=== PATIENT | male | born 1945 | race Caucasian/White ===

== ENCOUNTER 2018-01-03 13:46 | Inpatient (IN) ==
[2018-01-03] MEDS ORDERED: Pantoprazole Inj 40 MG Vial IV.PUSH ONE (14:07)
[2018-01-03] MEDS ORDERED: Sod Chloride 0.9% Inj 1,000 ML IV.CONT SCH (14:15)
--- NOTE | 2018-01-03 14:15 | ED ---
HPI General Chief Complaint: Dizziness Stated Complaint: medical Time Seen by Provider: 01/03/18 13:49 Source: patient Mode of arrival: ambulatory Limitations: no limitations History of Present Illness HPI Narrative: The patient is a 72-year-old male who presents to the emergency department for lightheadedness and dizziness. Patient states he has been having progressive symptoms for the last several months of lightheadedness , shortness of breath with exertion, and occasional chest discomfort. However, the patient states her last several days he has been having orthostatic hypotension with syncopal episodes upon standing upright. The patient states every time he stands up he became lightheaded and dizzy. The patient was scheduled for an outpatient stress test today with his education department chair, Dr. Callejas. The patient denies any history of symptomatic anemia or current GI bleed, notes he has had a colonoscopy in the past which is significant for polyps and internal hemorrhoids. Symptoms are moderate and progressive. The patient does note his symptoms are exertional. MD complaint: Reports dizziness Onset (ago): day(s) Timing: gradual onset Description: Reports lightheadedness and near-syncope History of similar episodes: Yes History of trauma: No Severity: moderate Relieving factors: rest Exacerbating factors: position and exertion Associated symptoms: Reports chest pain, syncope and weakness Related Data Home Medications Medication Instructions Recorded Confirmed atorvastatin 40 mg PO HS 01/03/18 01/03/18 carvedilol 12.5 mg PO BID 01/03/18 01/03/18 furosemide [Lasix] 40 mg PO DAILY 01/03/18 01/03/18 hydrocodone-acetaminophen [[place]] 1 tab PO BID PRN 01/03/18 01/03/18 potassium chloride 20 meq PO DAILY 01/03/18 01/03/18 warfarin [Jantoven] 1.5 mg PO 01/03/18 warfarin [Jantoven] 3 mg PO DAILY 01/03/18 01/03/18 Allergies Allergy/AdvReac Type Severity Reaction Status Date / Time No Known Allergies Allergy Verified 01/03/18 14:07 Review of Systems ROS: all other systems reviewed are negative PENDING SALE TO [facility] Social History Social History Substance History: No History of Abuse Second Hand Smoke Exposure: Yes Smoking Status: Current some day smoker Tobacco Type: Cigars How Often Do You Have a Drink Containing Alcohol: 4 or more times a week Recent Out of Country Travel within the Last 8 Weeks: No Exam Narrative Exam Narrative: GENERAL: Awake, alert, pleasant 72-year-old male who appears his stated age and is in no acute respiratory distress. SKIN: Focused skin assessment warm/dry. Pallor to the skin noted. HEAD: Atraumatic. Normocephalic. EYES: Pupils equal and round. Pale lower junk of blood. ENT: No nasal bleeding or discharge. Mucous membranes pink and moist. NECK: Trachea midline. No JVD. CARDIOVASCULAR: Regular rate and rhythm. No murmur appreciated. RESPIRATORY: No accessory muscle use. Clear to auscultation. Breath sounds equal bilaterally. GASTROINTESTINAL: Abdomen soft, non-tender, nondistended. Rectal: No gross blood. Guaiac positive. MUSCULOSKELETAL: No obvious deformities. No clubbing. No cyanosis. Bilateral lower extremity pitting edema to the knees. Pallor noted to the palms. NEUROLOGICAL: Awake and alert. No obvious cranial nerve deficits. Motor grossly within normal limits. Normal speech. PSYCHIATRIC: Appropriate mood and affect; insight and judgment normal. Procedures Hemaprompt Stool Procedural Steps Taken: specimen placed in appropriate test area, developer placed on specimen and control areas and controls appropriately positive and negative Hemaprompt Stool Result: positive Course Initial Documented Vital Signs Temperature 97.7 F 01/03/18 13:50 Pulse Rate 61 01/03/18 13:50 Respiratory Rate 21 01/03/18 13:50 Blood Pressure 106/49 L 01/03/18 13:50 Pulse Oximetry 100 01/03/18 13:50 Last Documented Vital Signs Temperature 97.7 F 01/03/18 13:50 Pulse Rate 61 01/03/18 13:50 Respiratory Rate 21 01/03/18 13:50 Blood Pressure 106/49 L 01/03/18 13:50 Pulse Oximetry 100 01/03/18 14:07 Critical Care Time Critical Care Time: Yes Total Critical Care Time: 35 Attestation: Aggregate critical care time was 35 minutes. Time to perform other separately billable procedures was not included in the critical care time. My time did not include minutes spent treating any other patients simultaneously or on activities that did not directly contribute to the patient's treatment. The services I provided to this patient were to treat and/or prevent clinically significant deterioration that could result in: Hemorrhagic shock, acute kidney insufficiency, acute renal failure, arrhythmia, ischemic heart disease, . I provided critical care services requiring my management, as noted below: Chart data review, documentation time, medication orders and management, vital sign assessments/reviewing monitor data, ordering and reviewing lab tests, ordering and interpreting/reviewing x-rays and diagnostic studies, care of the patient and discussion of the patient with the admitting physicians. Medical Decision Making MDM Narrative Medical decision making narrative: IV was established, labs were drawn and sent , and the patient was placed on cardiac telemetry monitoring and continuous pulse oximetry monitoring. EKG was ordered and entered. Orthostatic vital signs were obtained. CBC and type and screen were sent to lab. The patient's hemoglobin is 4.4, INR is 6.2, the patient is on Coumadin with a history of atrial fibrillation. The patient's rectal exam was guaiac positive, he does have orthostatic changes and presyncopal symptoms. The patient was administered vitamin K 5 mg orally for elevated INR and 2 units of PRBCs were ordered with 2 units to be held for transfusion for symptomatic anemia. The patient does have severe symptomatic anemia with coagulopathy, therefore, call was placed to the on-call inspector missile at 3:17 PM to discuss whether the patient could go to a medical floor with cardiac telemetry monitoring or the intensive care unit. I discussed the patient with Dr. Hurt who agrees with admission. Medical Screen Exam Complete: Yes Emergency Medical Condition: Yes Differential Diagnosis Differential Diagnosis: Differential diagnosis includes symptomatic anemia, GI bleed, hemolytic anemia, leukemia, ACS, cardiomyopathy, deconditioning, acute renal failure, orthostatic hypotension, dysregulation syndrome. Lab Data Lab results reviewed: Yes I reviewed the patient's lab results. Result diagrams: 01/03/18 13:50 01/03/18 13:50 Lab Results 01/03/18 01/03/18 01/03/18 Range/Units 13:50 13:50 13:50 WBC 3.2 L (4.0-11.0) th/mm3 RBC 1.74 L (4.50-5.90) mil/mm3 Hgb 4.4 L* (13.0-17.0) gm/dL Hct 14.1 L* (39.0-51.0) % MCV 80.9 (80.0-100.0) fL MCH 25.1 L (27.0-34.0) pg MCHC 31.0 L (32.0-36.0) % RDW 16.8 (11.6-17.2) % Plt Count 121 L (150-450) th/mm3 MPV 8.3 (7.0-11.0) fL Prelim Diff (Auto) Manual diff required Differential Comment . PT 65.1 H (9.8-11.6) sec INR 6.5 H* Ratio APTT 47.7 H (23.4-31.7) sec Sodium 137 (136-145) meq/L Potassium 4.4 (3.5-5.1) meq/L Chloride 107 (98-107) meq/L Carbon Dioxide 23.3 (21.0-32.0) meq/L Anion Gap 7 (5-15) meq/L BUN 16 (7-18) mg/dL Creatinine 1.34 H (0.60-1.30) mg/dL Estimated GFR 53 L (>89) mL/min Random Glucose 126 H (74-106) mg/dL Calcium 6.9 L* (8.5-10.1) mg/dL Calcium Adj for Albumin 7.8 L (8.5-10.1) mg/dL Magnesium 1.8 (1.5-2.5) mg/dL Total Bilirubin 1.9 H (0.2-1.0) mg/dL AST 52 H (15-37) U/L ALT 37 (12-78) U/L Alkaline Phosphatase 67 (45-117) U/L Troponin I 0.02 (0.02-0.05) ng/mL Total Protein 5.4 L (6.4-8.2) g/dL Albumin 2.3 L (3.4-5.0) g/dL ECG Data EKG Prior to Arrival: No Attestation: I personally reviewed and interpreted this ECG as follows: Interpretation: EKG reveals normal sinus rhythm with a rate of 62. RSR prime with a QRS of 140 ms consistent with right bundle branch block. Discharge Plan Discharge Disposition Patient Disposition: 30 Still Patient Discharge Condition Condition: Serious Discharge Details Diagnosis: Symptomatic anemia, Orthostatic hypotension, Coumadin toxicity, Pancytopenia Physicians Team ED Provider: Jorge Lowe Primary Care Provider: Jose Manuel Bailey Rxs /Orders / Referrals /Forms Prescriptions: No Action furosemide [Lasix] 40 mg Tablet 40 mg PO DAILY RF: 0 atorvastatin 40 mg Tablet 40 mg PO HS RF: 0 potassium chloride 10 mEq Capsule, Extended Release 20 meq PO DAILY RF: 0 carvedilol 12.5 mg Tablet 12.5 mg PO BID RF: 0 hydrocodone-acetaminophen [[place]] 10-325 mg Tablet 1 tab PO BID PRN (Reason: Pain) RF: 0 warfarin [Jantoven] 3 mg Tablet 3 mg PO DAILY RF: 0 warfarin [Jantoven] 3 mg Tablet 1.5 mg PO RF: 0 Status ED Status: Admitted Patient
[2018-01-03 14:41] LABS: Mean Corpuscular Hemoglobin 25.1 pg (27.0-34.0); Mean Corpuscular Volume 80.9 fL (80.0-100.0); Mean Platelet Volume 8.3 fL (7.0-11.0); Platelet Count 121 th/mm3 (150-450); Red Blood Count 1.74 mil/mm3 (4.50-5.90); Red Cell Distribution Width 16.8 % (11.6-17.2); White Blood Count 3.2 th/mm3 (4.0-11.0)
[2018-01-03 14:46] LABS: Activated Partial Thrombo Time 47.7 sec (23.4-31.7); Prothrombin Time 65.1 sec (9.8-11.6)
[2018-01-03 14:51] LABS: Hematocrit 14.1 % (39.0-51.0); Hemoglobin 4.4 gm/dL (13.0-17.0)
[2018-01-03 14:54] LABS: INR 6.5 Ratio
[2018-01-03] MEDS ORDERED: Acetaminophen 325 MG Tablet PO PRN ×2 (14:55→15:27)
[2018-01-03] MEDS ORDERED: Phytonadione 5 MG/SWFI 5 ML Oral Syringe PO ONE (14:58)
[2018-01-03 14:59] LABS: Albumin 2.3 g/dL (3.4-5.0); Calcium 6.9 mg/dL (8.5-10.1); Carbon Dioxide 23.3 meq/L (21.0-32.0); Magnesium 1.8 mg/dL (1.5-2.5); Potassium 4.4 meq/L (3.5-5.1)
[2018-01-03] MEDS ORDERED: Sodium Chlor 0.9% Inj 250 ML IV.SIG SCH (15:00)
[2018-01-03 15:03] LABS: Total Protein 5.4 g/dL (6.4-8.2); Troponin I 0.02 ng/mL (0.02-0.05)
[2018-01-03] MEDS ORDERED: Bisacodyl 10 MG Supp RECTAL PRN (15:27)
[2018-01-03 15:28] LABS: Lymphocytes 17 % (9-44); Monocytes 10 % (0-8)
[2018-01-03 15:29] LABS: Ovalocytes 2+; Platelet Morphology Normal (Normal)
[2018-01-03] MEDS ORDERED: Potassium Phosphate 500 MG Soluble Tablet PO PRN ×2 (15:29)
[2018-01-03] MEDS ORDERED: Magnesium Oxide 400 MG Tablet PO PRN (15:29)
[2018-01-03] MEDS ORDERED: Sodium Phosphate Inj 30 MMOL in Sodium Chlor 0.9% Inj 250 ML IV.SIG PRN (15:29)
[2018-01-03] MEDS ORDERED: Potassium Chlor 40 mEq Premix 40 MEQ/100 ML PIGGYBACK IV.SIG PRN ×2 (15:29)
[2018-01-03] MEDS ORDERED: Magnesium Sulfate Inj 4 GM in Sodium Chlor 0.9% Inj 92 ML IV.SIG PRN (15:29)
[2018-01-03] MEDS ORDERED: Potassium Phosphate Inj 30 MMOL in Sodium Chlor 0.9% Inj 250 ML IV.SIG PRN (15:29)
[2018-01-03] MEDS ORDERED: Magnesium Sulfate Inj 2 GM in Sodium Chlor 0.9% Inj 96 ML IV.SIG PRN (15:29)
[2018-01-03] MEDS ORDERED: Potassium Chloride 25 MEQ Effervescent Tablet PO PRN (15:29)
[2018-01-03] MEDS ORDERED: Potassium Chlor 20 mEq Premix 20 MEQ/100 ML PIGGYBACK IV.SIG PRN ×2 (15:29)
[2018-01-03] MEDS ORDERED: Dextrose 50% in Water 50 ML Vial IV.PUSH PRN (15:30)
[2018-01-03 16:15] LABS: % Iron Saturation 4.3 % (20-50)
[2018-01-03 16:31] LABS: Reticulocyte Percent 2.9 % (0.4-3.0)
--- NOTE | 2018-01-03 17:07 | P.HPCC ---
History of Present Illness Service: Critical care medicine Primary Care Physician: Jose Manuel Bailey Chief Complaint: Shortness of breath History of Present Illness: This is a 72-year-old male. Date of admission 01/03/2018. Past medical history includes atrial fibrillation on chronic warfarin, hypertension, hyperlipidemia, prostate cancer. Patient also has significant bilateral lower extremity edema on furosemide. Patient presented to [facility] with progressive weakness. Patient has had dark stools. Denies any aspirin, NSAID or steroid use. Denies abdominal pain. Patient a colonoscopy 2 years ago which revealed only polyps. Internal hemorrhoids. At this facility, patient was noted have a hemoglobin of 4.4. INR of 6.5. Patient received phytonadione and 2 units PRBCs. Recheck later this evening after receiving furosemide and readdress. Denies chest pain. Positive shortness of breath. Positive orthostatics. Inpatient Certification: I certify that the inpatient services were ordered in accordance with Medicare regulations governing the order. This includes certification that hospital inpatient services are reasonable and necessary and in the case of services not specified as inpatient-only under 42 CFR 419.22(n), that they are appropriately provided as inpatient services in accordance to with the 2-midnight benchmark under 43 CFR 412.3(e) Estimated Total Length of Stay (Days): 5 Plans for Post Hospital Care: Not yet determined Review of Systems Constitutional: Reports daytime sleepiness, Denies anorexia, Denies body ache(s) , Denies chills Eyes: Denies blind spots, Denies blurry vision Ears, Nose, Mouth, and Throat: Reports bad breath, Reports poor balance, Denies abnormal hearing, Denies bleeding gums Cardiovascular: Reports shortness of breath, Reports shortness of breath with activity, Denies chest pain, Denies chest pain at rest, Denies shortness of breath when lying down Respiratory: Denies chest congestion, Denies cough Gastrointestinal: Reports black, tarry stools, Denies abdominal pain, Denies bright, red blood in stools, Denies change in bowel habits Genitourinary: Denies blood in semen, Denies blood in urine Musculoskeletal: Reports abnormal walking, Denies back pain Skin/Breast: Reports change in skin color, Denies acne, Denies change in hair Neurologic: Denies abnormal hearing, Denies abnormal walking Psychiatric: Reports confusion, Denies abnormal sleep pattern, Denies anxiety Endocrine: Denies cold intolerance, Denies excessive sweating Hematologic/Lymphatic: Denies easy bleeding, Denies easy bruising Allergic/Immunologic: Denies GI upset with certain foods PMFSH - History History Provided By: Patient, Family Member, [employer] Consultant / EMT - Medical History Medical History: Medical History (Last Reviewed 01/03/18 @ 15:09 by Rachel Yang) Atrial fibrillation Cataract HTN (hypertension) Hemorrhoid High cholesterol Hx of radiation therapy Prostate CA - Surgical History Surgical History: Surgical History (Last Reviewed 01/03/18 @ 15:09 by Rachel Yang) H/O cardiac radiofrequency ablation H/O knee surgery Hx of tonsillectomy - Family History Family History: Family History (Last Updated 01/03/18 @ 17:07 by Anam Hurt MD) Mother Family history of CVA Father Family history of atrial fibrillation Grandparent No problems noted. - Social History I have reviewed the patient's Social History: Yes - Tobacco History Second Hand Smoke Exposure: Yes Tobacco Use In Past 30 Days: Yes Smoking Status: Current some day smoker Tobacco Type: Cigars - Alcohol History How Often Do You Have a Drink Containing Alcohol: 4 or more times a week - Substance Use History Substance History: No History of Abuse - Travel History Recent Travel Out of the Country Within the Last 8 Weeks: No - Immunization History Tetanus Immunization: <5 Years Medications and Allergies Active Medications: Active Medications Acetaminophen (Tylenol) 650 mg PO Q4H PRN PRN Reason: SEE LABEL COMMENTS Acetaminophen (Tylenol) 650 mg PO Q6H PRN PRN Reason: PAIN 1-10 AND/OR FEVER >101F Al Hydroxide/Mg Hydroxide (Milk Of Magnzach Liq) 30 ml PO Q12H PRN PRN Reason: Mild Constipation Albuterol (Albuterol Neb (Prn)) 2.5 mg NEB Q2HR NEB PRN PRN Reason: SHORTNESS OF BREATH/WHEEZING Albuterol (Duoneb Neb (Anai)) 1 ampul NEB Q4HR NEB ANAI Last Admin: 01/03/18 16:17 Dose: 1 ampul Bisacodyl (Dulcolax Supp) 10 mg RECTAL DAILY PRN PRN Reason: SEVERE CONSITIPATION Chlorhexidine Gluconate (Chlorhexidine 2% Cloth) 3 pack TOPICAL DAILY@0400 [facility] Stop: 01/09/18 03:59 Chlorhexidine Gluconate (Chlorhexidine 2% Cloth) 3 pack TOPICAL DAILY@0400 PRN PRN Reason: Extra cloth needed Stop: 01/09/18 03:59 Dextrose (D50w Vial) 50 ml IV.PUSH UNSCH PRN PRN Reason: PER HYPOGLYCEMIA PROTOCOL Diphenhydramine HCl (Benadryl) 25 mg PO Q4H PRN PRN Reason: SEE LABEL COMMENTS Furosemide (Lasix) 40 mg PO DAILY ANAI Glucagon (Glucagon Inj) 1 mg OTHER UNSCH PRN PRN Reason: for Hypoglycemia Protocol Sodium Chloride (Ns Inj) 250 mls @ 15 mls/hr IV.SIG ONCE ANAI Stop: 01/04/18 07:39 Sodium Chloride (Ns Inj) 1,000 mls @ 84 mls/hr IV.CONT .[id number] ANAI Magnesium Sulfate 4 gm/ Sodium (Chloride) 100 mls @ 50 mls/hr IV.SIG UNSCH PRN PRN Reason: For Magnesium 0.9 - 1.1 mg/dL Magnesium Sulfate 2 gm/ Sodium (Chloride) 100 mls @ 50 mls/hr IV.SIG UNSCH PRN PRN Reason: For Magnesium 1.2 - 1.6 mg/dL Potassium Chloride (Kcl 40 Meq Premix Inj) 40 meq in 100 mls @ 50 mls/hr IV.SIG Q2H PRN PRN Reason: For Potassium 2.8 - 3.2 mEq/L Potassium Chloride (Kcl 40 Meq Premix Inj) 40 meq in 100 mls @ 25 mls/hr IV.SIG UNSCH PRN PRN Reason: For Potassium 3.3 - 3.5 mEq/L Potassium Chloride (Kcl 20 Meq Premix Inj) 20 meq in 100 mls @ 50 mls/hr IV.SIG Q2H PRN PRN Reason: For Potassium 2.8 - 3.2 mEq/L Potassium Phosphate 30 mmol/ (Sodium Chloride) 260 mls @ 42 mls/hr IV.SIG UNSCH PRN PRN Reason: SEE LABEL COMMENTS Sodium Phosphate 30 mmol/ (Sodium Chloride) 260 mls @ 42 mls/hr IV.SIG UNSCH PRN PRN Reason: For Phosphorus < 2.5 mg/dL Potassium Chloride (Kcl 20 Meq Premix Inj) 20 meq in 100 mls @ 50 mls/hr IV.SIG Q2H PRN PRN Reason: For Potassium 3.3 - 3.5 mEq/L Insulin Aspart (Novolog Insulin Correctional Sugar Inj) 0 unit SQ Q6HR ANAI; Protocol Lactulose (Lactulose Liq) 30 ml PO DAILY PRN PRN Reason: SEVERE CONSITIPATION Magnesium Oxide (Mag-Ox) 800 mg PO UNSCH PRN PRN Reason: For Magnesium 1.2 - 1.6 mg/dL Pantoprazole Sodium (Protonix Inj) 40 mg IV.PUSH Q12H ANAI Potassium Bicarb/Potassium Chloride (K-Lyte Cl Eff) 50 meq PO UNSCH PRN PRN Reason: For Potassium 3.3 - 3.5 mEq/L Potassium Phosphate (K-Phos Original) 2,000 mg PO Q4H PRN PRN Reason: Phosphorus Less Than 2.5 mg/dL Potassium Phosphate (K-Phos Original) 2,000 mg PO UNSCH PRN PRN Reason: SEE LABEL COMMENTS Senna/Docusate Sodium (Lizette-Colace) 1 tab PO BID [facility] Sennosides (Senokot) 17.2 mg PO Q12H PRN PRN Reason: Moderate Constipation Sodium Chloride (Ns Flush) 2 ml IV.FLUSH BID ANAI Sodium Chloride (Ns Flush) 2 ml IV.FLUSH UNSCH PRN PRN Reason: FLUSH AFTER USING IV ACCESS Allergies Allergy/AdvReac Type Severity Reaction Status Date / Time No Known Allergies Allergy Verified 01/03/18 14:07 Home Medications Medication Instructions Recorded Confirmed Type atorvastatin 40 mg PO HS 01/03/18 01/03/18 History carvedilol 12.5 mg PO BID 01/03/18 01/03/18 History furosemide [Lasix] 40 mg PO DAILY 01/03/18 01/03/18 History hydrocodone-acetaminophen [[place]] 1 tab PO BID PRN 01/03/18 01/03/18 History potassium chloride 20 meq PO DAILY 01/03/18 01/03/18 History warfarin [Jantoven] 1.5 mg PO 01/03/18 History warfarin [Jantoven] 3 mg PO DAILY 01/03/18 01/03/18 History Results - Labs CBC & Chem 7: 01/03/18 13:50 01/03/18 13:50 Labs: Short CBC 01/03/18 Range/Units 13:50 WBC 3.2 L (4.0-11.0) th/mm3 Hgb 4.4 L* (13.0-17.0) gm/dL Hct 14.1 L* (39.0-51.0) % Plt Count 121 L (150-450) th/mm3 BMP 01/03/18 13:50 Sodium 137 Potassium 4.4 Chloride 107 Carbon Dioxide 23.3 BUN 16 Creatinine 1.34 H Calcium 6.9 L* Cardiac Enzymes 01/03/18 01/03/18 Range/Units 13:50 13:50 Total Creatine Kinase 83 (39-308) U/L Troponin I 0.02 (0.02-0.05) ng/mL Liver Function 01/03/18 Range/Units 13:50 Total Bilirubin 1.9 H (0.2-1.0) mg/dL AST 52 H (15-37) U/L ALT 37 (12-78) U/L Alkaline Phosphatase 67 (45-117) U/L Albumin 2.3 L (3.4-5.0) g/dL Exam Vital signs: Vital Signs 01/03/18 13:50 01/03/18 14:07 01/03/18 14:15 Temperature 97.7 F Pulse Rate 61 59 L Respiratory Rate 21 16 Blood Pressure 106/49 L 111/53 L Pulse Oximetry 100 100 100 01/03/18 15:00 01/03/18 15:27 01/03/18 16:00 Temperature Pulse Rate 59 L 58 L Respiratory Rate 18 18 Blood Pressure 103/48 L 102/51 L Pulse Oximetry 100 100 100 01/03/18 16:17 Temperature Pulse Rate 58 L Respiratory Rate 18 Blood Pressure Pulse Oximetry Intake & Output 01/02/18 01/03/18 01/03/18 18:59 06:59 18:59 Weight 124.284 kg - Constitutional no acute distress - Routine HEENT Exam Head: Present: normocephalic, atraumatic Eye: Present: EOMI, PERRL ENT: Present: mucous membranes moist - Routine Neck Exam Present: supple, full ROM. Absent: JVD - Routine Chest/Breast/Axilla Exam Chest wall: Absent: tenderness Breast: Absent: tenderness Axillae: Absent: lymphadenopathy - Routine Respiratory Exam Present: CTA bilaterally. Absent: accessory muscle use - Routine Cardiovascular Exam Present: S1, S2, murmur, irregularly irregular - Routine Abdominal Exam Present: soft, normoactive bowel sounds - Routine Extremities Exam Present: edema. Absent: cyanosis, clubbing - Routine Skin Exam Present: wounds, cracked, ecchymosis - Routine Neurological Exam Present: alert, oriented X3, CN II-XII intact. Absent: sensory deficit, motor deficit Septic Shock Reassessment Septic shock perfusion: reassessment completed Ashvinrini VTE Risk Assessment Caprini VTE Risk Assessment: Moderate/High Risk (score >= 2) VTE Pharmacological Exception Reason: Hemorrhage Caprini Risk Assessment Model: Point Value = 1 Point Value = 2 Point Value = 3 Point Value = 5 Age 41-60 Minor surgery BMI > 25 kg/m2 Swollen legs Varicose veins or History of unexplained or recurrent spontaneous Oral contraceptives or hormone replacement Sepsis (< 1 month) Serious lung disease, including pneumonia (< 1 month) Abnormal pulmonary function Acute myocardial infarction Congestive heart failure (< 1 month) History of inflammatory bowel disease Medical patient at bed rest Age 61-74 Arthroscopic surgery Major open surgery (> 45 min) Laparoscopic surgery (> 45 min) Malignancy Confined to bed (> 72 hours) Immobilizing plaster cast Central venous access Age >= 75 History of VTE Family history of VTE Factor V Leiden Prothrombin [id number] Lupus anticoagulant Anticardiolipin antibodies Elevated serum homocysteine Heparin-induced thrombocytopenia Other congenital or acquired thrombophilia Stroke (< 1 month) Elective arthroplasty Hip, pelvis, or leg fracture Acute spinal cord injury (< 1 month) Prophylaxis Regimen: Total Risk Factor Score Risk Level Prophylaxis Regimen 0-1 Low Early ambulation 2 Moderate Order ONE of the following: *Sequential Compression Device (SCD) *Heparin 5000 units SQ BID 3-4 Higher Order ONE of the following medications: *Heparin 5000 units SQ TID *Enoxaparin/Lovenox 40 mg SQ daily (WT < 150 kg, CrCl > 30 mL/min) *Enoxaparin/Lovenox 30 mg SQ daily (WT < 150 kg, CrCl > 10-29 mL/min) *Enoxaparin/Lovenox 30 mg SQ BID (WT < 150 kg, CrCl > 30 mL/min) AND/OR *Sequential Compression Device (SCD) 5 or more Highest Order ONE of the following medications: *Heparin 5000 units SQ TID (Preferred with Epidurals) *Enoxaparin/Lovenox 40 mg SQ daily (WT < 150 kg, CrCl > 30 mL/min) *Enoxaparin/Lovenox 30 mg SQ daily (WT < 150 kg, CrCl > 10-29 mL/min) *Enoxaparin/Lovenox 30 mg SQ BID (WT < 150 kg, CrCl > 30 mL/min) AND *Sequential Compression Device (SCD) Assessment and Plan - Assessment and Plan Plan: Neuro/Psych: History of cataract Acetaminophen 650 mg every 6 hours as needed fever/pain 1-10 CV: Atrial fibrillation Essential hypertension Hyperlipidemia Holding home medication of atorvastatin 40 mg daily. Resume clinically indicated Holding carvedilol 12.5 mg twice daily. Resume clinically indicated Resume furosemide 40 mg p.o. daily for holding potassium chloride 20 mEq p.o. daily. Initial troponin negative. Resp: Nasal cannula to maintain saturations greater than or equal to 92% Incentive spirometry while awake Follow-up on chest x-ray GI: Elevated AST N.p.o. status pantoprazole 40 mg IV twice daily for GI prophylaxis Gastroenterology consultation : Straight catheterization as needed Endo: Sliding scale insulin Accu-Cheks to maintain euglycemia Renal: Acute kidney injury Monitor urine output accurate I's and O's Recheck BMP in a.m. 01/04 Heme: Leukopenia normocytic anemia Thrombocytopenia Coagulopathic state Holding warfarin 3 mg / 1.5 mg alternating days. Received 5 mg of phytonadione in ED. We will give 1 FFP and recheck coags at 2100 Recheck hemoglobin at 2100 Normal reticulocyte count. Low iron but normal TIBC. ID: Monitor for signs and symptomatology infection FEN: Currently on normal saline at 84 cc an hour. Received 2 L normal saline ED MSK: Elevated BMI Weight loss encouraged Access -Utilize peripheral IV. Central line if indicated Prophylaxis -GI -pantoprazole -DVT -SCDs/pharmacological prophylaxis contraindicated with an acute anemia Level 3 admission
[2018-01-03] MEDS: Sod Chloride 0.9% Inj 1,000 ML IV.CONT SCH (17:39)
[2018-01-03] MEDS: Insulin NovoLOG Aspart Correctional Sugar Inj SQ SCH (19:49)
[2018-01-03] MEDS ORDERED: Influenza (Quadrivalent) Vaccine 0.5 ML Syringe IM ONE (20:00)
[2018-01-03] MEDS: Senna/Docusate Sodium 8.6/50 MG Tablet PO SCH (20:15)
[2018-01-04] MEDS: Insulin NovoLOG Aspart Correctional Sugar Inj SQ SCH ×4 (00:17→19:23)
[2018-01-04] MEDS: Pantoprazole Inj 40 MG Vial IV.PUSH SCH ×2 (02:24→16:24)
[2018-01-04] MEDS: Chlorhexidine Gluconate 2% 1 Pack (2 Cloths) TOPICAL SCH (03:01)
[2018-01-04] MEDS ORDERED: Chlorhexidine Gluconate 2% 1 Pack (2 Cloths) TOPICAL PRN ×2 (04:00)
[2018-01-04] MEDS ORDERED: Chlorhexidine Gluconate 2% 1 Pack (2 Cloths) TOPICAL SCH (04:00)
[2018-01-04] MEDS: Sod Chloride 0.9% Inj 1,000 ML IV.CONT SCH ×2 (05:00→19:28)
[2018-01-04 06:16] LABS: Baso % (Auto) 1.1 % (0.0-2.0); Eos # (Auto) 0.1 th/mm3 (0.0-0.4); Eos % (Auto) 2.2 % (0.0-4.0); Lymph # (Auto) 0.7 th/mm3 (1.0-4.8); Lymph % (Auto) 23.8 % (9.0-44.0); Mean Corpuscular HGB Conc 32.7 % (32.0-36.0); Mean Corpuscular Hemoglobin 25.4 pg (27.0-34.0); Mean Corpuscular Volume 77.8 fL (80.0-100.0); Mean Platelet Volume 8.2 fL (7.0-11.0); Mono # (Auto) 0.4 th/mm3 (0.0-0.9); Mono % (Auto) 12.8 % (0.0-8.0); Neut # (Auto) 1.8 th/mm3 (1.8-7.7); Neut % (Auto) 60.1 % (16.0-70.0); Platelet Count 115 th/mm3 (150-450); Red Blood Count 2.33 mil/mm3 (4.50-5.90); Red Cell Distribution Width 16.4 % (11.6-17.2)
[2018-01-04 06:27] LABS: Activated Partial Thrombo Time 38.5 sec (23.4-31.7); INR 3.2 Ratio; Prothrombin Time 32.4 sec (9.8-11.6)
[2018-01-04 06:33] LABS: Hematocrit 18.1 % (39.0-51.0); Hemoglobin 5.9 gm/dL (13.0-17.0)
[2018-01-04 06:40] LABS: Albumin 2.5 g/dL (3.4-5.0); Carbon Dioxide 24.1 meq/L (21.0-32.0); Magnesium 1.8 mg/dL (1.5-2.5); Potassium 3.7 meq/L (3.5-5.1)
[2018-01-04 06:44] LABS: Total Protein 5.4 g/dL (6.4-8.2)
[2018-01-04 08:00] LABS: Dimorphic RBC Present; Ovalocytes 1+; Platelet Morphology Normal (Normal)
[2018-01-04] MEDS: Furosemide 40 MG Tablet PO SCH (08:21)
[2018-01-04] MEDS: Senna/Docusate Sodium 8.6/50 MG Tablet PO SCH ×2 (08:22→20:47)
--- NOTE | 2018-01-04 15:36 | ECG ---
Date Performed: 01/03/2018 Time Performed: 13:55:45 PTAGE: 72 years EKG: Sinus rhythm MARKED LEFT AXIS DEVIATION RIGHT BUNDLE BRANCH BLOCK ABNORMAL ECG NO PREVIOUS TRACING DOCTOR: Denae Cheney Interpretating Date/Time 01/04/2018 15:35:34
--- NOTE | 2018-01-04 17:04 | P.PNCC ---
Subjective Subjective Remarks/Hospital Course: This is a 72-year-old male. Date of admission 01/03/2018. Past medical history includes atrial fibrillation on chronic warfarin, hypertension, hyperlipidemia, prostate cancer. Patient also has significant bilateral lower extremity edema on furosemide. Patient presented to [facility] with progressive weakness. Patient has had dark stools. Denies any aspirin, NSAID or steroid use. Denies abdominal pain. Patient a colonoscopy 2 years ago which revealed only polyps. Internal hemorrhoids. At this facility, patient was noted have a hemoglobin of 4.4. INR of 6.5. Patient received phytonadione and 2 units PRBCs. Recheck later this evening after receiving furosemide and readdress. Denies chest pain. Positive shortness of breath. Positive orthostatics. Subjective 01/04: Transfuse 2 units PRBCs overnight. INR is currently 3.2. Hemoglobin 5.8. Transfusing 2 additional units right now. Objective Vital Signs / I&O: Vital Signs 01/03/18 18:10 01/03/18 18:18 01/03/18 18:38 Temperature 98.3 F 97.9 F Pulse Rate 62 59 L 56 L Respiratory Rate 41 H 27 H 30 H Blood Pressure 120/51 L 120/51 L Pulse Oximetry 100 100 100 01/03/18 19:00 01/03/18 19:01 01/03/18 20:00 Temperature 98.7 F Pulse Rate 56 L 57 L 57 L Respiratory Rate 21 19 26 H Blood Pressure 113/53 L 125/57 L Pulse Oximetry 100 100 100 01/03/18 21:00 01/03/18 22:00 01/03/18 22:01 Temperature Pulse Rate 56 L 57 L 58 L Respiratory Rate 24 27 H 26 H Blood Pressure 133/63 119/59 L Pulse Oximetry 100 100 100 01/03/18 22:56 01/03/18 23:00 01/03/18 23:02 Temperature 98.6 F Pulse Rate 59 L 59 L 59 L Respiratory Rate 19 24 23 Blood Pressure 119/59 L 123/56 L Pulse Oximetry 99 100 100 01/04/18 00:00 01/04/18 00:01 01/04/18 00:04 Temperature 98.3 F Pulse Rate 60 60 59 L Respiratory Rate 30 H 35 H 16 Blood Pressure 139/54 L Pulse Oximetry 100 100 01/04/18 01:00 01/04/18 02:00 01/04/18 02:25 Temperature 98.5 F Pulse Rate 59 L 59 L 59 L Respiratory Rate 21 16 17 Blood Pressure 115/59 L 116/58 L 116/58 L Pulse Oximetry 100 100 100 01/04/18 03:00 01/04/18 03:01 01/04/18 04:00 Temperature 98.4 F Pulse Rate 59 L 59 L 58 L Respiratory Rate 25 H 27 H 23 Blood Pressure 100/49 L 113/55 L Pulse Oximetry 100 99 100 01/04/18 04:29 01/04/18 05:00 01/04/18 06:00 Temperature Pulse Rate 59 L 60 62 Respiratory Rate 16 24 29 H Blood Pressure 107/49 L Pulse Oximetry 100 99 100 01/04/18 06:08 01/04/18 06:58 01/04/18 07:00 Temperature 98.5 F Pulse Rate 62 61 62 Respiratory Rate 22 16 16 Blood Pressure 122/59 L 122/59 L Pulse Oximetry 100 100 100 01/04/18 08:00 01/04/18 11:08 01/04/18 11:55 Temperature 98.7 F Pulse Rate 62 62 Respiratory Rate 23 19 Blood Pressure 127/60 Pulse Oximetry 100 100 01/04/18 15:18 01/04/18 15:46 Temperature 98.0 F Pulse Rate 60 62 Respiratory Rate 16 21 Blood Pressure 127/62 Pulse Oximetry 98 Intake & Output 01/03/18 01/04/18 01/04/18 18:59 06:59 18:59 Intake Total 0 / 0 2146 / 2146 800 / 800 Output Total 500 / 500 650 / 650 Balance 0 / 0 1646 / 1646 150 / 150 Weight 129 kg 131 kg Intake: IV 1000 / 1000 Intake (Blood Product) Amt 0 / 0 1146 / 1146 800 / 800 Plasma Thawed 5 Day Cp2d Unit 346 / 346 [id number] Plasma Thawed 5 Day Cp2d Unit 0 / 0 [id number] Rbc As-3 Leukoreduced Unit 400 / 400 [id number] Rbc As-3 Leukoreduced Unit 0 / 0 400 / 400 [id number] Rbc As-3 Leukoreduced Unit 0 / 0 400 / 400 [id number] Rbc As-3 Leukoreduced Unit 400 / 400 [id number] Output: Urine 500 / 500 650 / 650 Other: Date of Last Bowel Movement 01/03/18 01/03/18 01/03/18 # Bowel Movements 1 Weight On Admission 124.284 kg Result Diagrams: 01/04/18 05:52 01/04/18 05:52 Objective Remarks: GENERAL: 72-year-old male currently in bed in no acute distress SKIN: Warm and dry. HEAD: Atraumatic. Normocephalic. EYES: Pupils equal and round. No scleral icterus. No injection or drainage. ENT: No nasal bleeding or discharge. Mucous membranes pink and moist. NECK: Trachea midline. No JVD. CARDIOVASCULAR: IRR. S1, S2. No S4.. RESPIRATORY: No accessory muscle use. Clear to auscultation. Breath sounds equal bilaterally. GASTROINTESTINAL: Abdomen soft, non-tender, nondistended. Hepatic and splenic margins not palpable. MUSCULOSKELETAL: Extremities 1-2+ bilateral lower extremity edema. No obvious deformities. NEUROLOGICAL: Awake and alert. No obvious cranial nerve deficits. Motor grossly within normal limits. Five out of 5 muscle strength in the arms and legs. Normal speech. PSYCHIATRIC: Appropriate mood and affect; insight and judgment normal. Assessment and Plan - Assessment and Plan Plan: Neuro/Psych: History of cataract Acetaminophen 650 mg every 6 hours as needed fever/pain 1-10 CV: Atrial fibrillation Essential hypertension Hyperlipidemia Holding home medication of atorvastatin 40 mg daily. Resume clinically indicated Holding carvedilol 12.5 mg twice daily. Resume clinically indicated Resume furosemide 40 mg p.o. daily for holding potassium chloride 20 mEq p.o. daily. Initial troponin negative. Resp: Nasal cannula to maintain saturations greater than or equal to 92% Incentive spirometry while awake Follow-up on chest x-ray GI: Elevated AST N.p.o. status pantoprazole 40 mg IV twice daily for GI prophylaxis Gastroenterology consultation possible EGD in a.m. 01/05. : Straight catheterization as needed Endo: Sliding scale insulin Accu-Cheks to maintain euglycemia Renal: Acute kidney injury Monitor urine output accurate I's and O's Recheck BMP in a.m. 01/05 Heme: Leukopenia normocytic anemia Thrombocytopenia Coagulopathic state Holding warfarin 3 mg / 1.5 mg alternating days. Received 5 mg of phytonadione in ED. We will give 1 FFP 01/03 and 01/04 and recheck coags in a.m. 01/05 Normal reticulocyte count. Low iron but normal TIBC. ID: Monitor for signs and symptomatology infection FEN: Currently on normal saline at 84 cc an hour. Received 2 L normal saline ED MSK: Elevated BMI Weight loss encouraged Access -Utilize peripheral IV. Central line if indicated Prophylaxis -GI -pantoprazole -DVT -SCDs/pharmacological prophylaxis contraindicated with an acute anemia Level 2 follow-up. Stable from critical care medicine standpoint. Assign care and hospice 02/27.
--- NOTE | 2018-01-04 18:18 | P.CONGI ---
History of Present Illness Consult date: 01/04/18 Consult reason: GI bleed Guaiac positive stool Chief complaint: Symptomatic anemia, orthostatic hypotension, History of Present Illness: Patient is a 72-year-old male who presented to the emergency room at [facility] on 01/03/2018. Past medical history includes atrial fibrillation on warfarin-, hypertension, hyperlipidemia, prostate cancer. Patient also has significant history of bilateral lower extremity edema-on furosemide. Upon consultation, patient endorsed that he presented to [place] with complaint of shortness of breath and generalized weakness. Patient states that he noticed dark stools for the last 2-3 weeks. He denies any use of aspirin or NSAIDs. Upon admission, hemoglobin 4 and stool was guaiac positive. Patient denies any abdominal pain nausea or vomiting. Reports he had a colonoscopy done 3 years ago that showed polyps which were benign. He endorses a history of hemorrhoids and denies ever having had an EGD in the past. Patient denies any difficulty swallowing, painful swallowing or heartburn. Patient denies any symptoms of acid reflux. Patient states his last dose of Coumadin was 2017 and his prescribed dose is 3 mg p.o. daily; and 1.5 mg p.o. every Wednesday. Patient states family history significant for his father having colon cancer. Patient denies any tobacco use states he stopped smoking 25 years ago and reports EtOH use socially with an occasional beer or glass of wine. Our service has been consulted to evaluate patient for GI bleed and guaiac positive stool <Patty Davis - Last Filed: 01/04/18 18:03> Review of Systems All other systems reviewed negative except as stated in HPI <Patty Davis - Last Filed: 01/04/18 18:03> PMFSH - History History Provided By: Patient - Medical History Medical History: Medical History (Last Reviewed 01/04/18 @ 08:30 by Isac Milligan) Atrial fibrillation Cataract HTN (hypertension) Hemorrhoid High cholesterol Hx of radiation therapy Prostate CA - Surgical History Surgical History: Surgical History (Last Reviewed 01/04/18 @ 08:30 by Isac Milligan) H/O cardiac radiofrequency ablation H/O knee surgery Hx of tonsillectomy - Family History Family History: Family History (Last Updated 01/03/18 @ 17:07 by Anam Hurt MD) Mother Family history of CVA Father Family history of atrial fibrillation Grandparent No problems noted. 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 Used: 1959's - Travel History Recent Travel Out of the Country Within the Last 8 Weeks: No - Immunization History Tetanus Immunization: <5 Years Hx Influenza Vaccine This Season: No <Patty Davis - Last Filed: 01/04/18 18:03> - Medical History Medical History: Medical History (Last Reviewed 01/04/18 @ 08:30 by Isac Milligan) Atrial fibrillation Cataract HTN (hypertension) Hemorrhoid High cholesterol Hx of radiation therapy Prostate CA - Surgical History Surgical History: Surgical History (Last Reviewed 01/04/18 @ 08:30 by Isac Milligan) H/O cardiac radiofrequency ablation H/O knee surgery Hx of tonsillectomy - Family History Family History: Family History (Last Updated 01/03/18 @ 17:07 by Anam Hurt MD) Mother Family history of CVA Father Family history of atrial fibrillation Grandparent No problems noted. <Lary Ledesma - Last Filed: 01/05/18 14:05> Medications and Allergies Active Medications: Active Medications Acetaminophen (Tylenol) 650 mg PO Q4H PRN PRN Reason: SEE LABEL COMMENTS Acetaminophen (Tylenol) 650 mg PO Q6H PRN PRN Reason: PAIN 1-10 AND/OR FEVER >101F Al Hydroxide/Mg Hydroxide (Milk Of Sultana Lileonel) 30 ml PO Q12H PRN PRN Reason: Mild Constipation Albuterol (Albuterol Neb (Prn)) 2.5 mg NEB Q2HR NEB PRN PRN Reason: SHORTNESS OF BREATH/WHEEZING Albuterol (Duoneb Neb (Anai)) 1 ampul NEB Q4HR NEB ANAI Last Admin: 01/04/18 15:17 Dose: 1 ampul Bisacodyl (Dulcolax Supp) 10 mg RECTAL DAILY PRN PRN Reason: SEVERE CONSITIPATION Chlorhexidine Gluconate (Chlorhexidine 2% Cloth) 3 pack TOPICAL DAILY@0400 [facility] Stop: 01/09/18 03:59 Last Admin: 01/04/18 03:01 Dose: 3 pack Chlorhexidine Gluconate (Chlorhexidine 2% Cloth) 3 pack TOPICAL DAILY@0400 PRN PRN Reason: Extra cloth needed Stop: 01/09/18 03:59 Dextrose (D50w Vial) 50 ml IV.PUSH UNSCH PRN PRN Reason: PER HYPOGLYCEMIA PROTOCOL Diphenhydramine HCl (Benadryl) 25 mg PO Q4H PRN PRN Reason: SEE LABEL COMMENTS Furosemide (Lasix) 40 mg PO DAILY [facility] Last Admin: 01/04/18 08:21 Dose: 40 mg Furosemide (Lasix Inj) 20 mg IV.PUSH ONCE ONE Stop: 01/04/18 17:46 Glucagon (Glucagon Inj) 1 mg OTHER UNSCH PRN PRN Reason: for Hypoglycemia Protocol Magnesium Sulfate 4 gm/ Sodium (Chloride) 100 mls @ 50 mls/hr IV.SIG UNSCH PRN PRN Reason: For Magnesium 0.9 - 1.1 mg/dL Magnesium Sulfate 2 gm/ Sodium (Chloride) 100 mls @ 50 mls/hr IV.SIG UNSCH PRN PRN Reason: For Magnesium 1.2 - 1.6 mg/dL Potassium Chloride (Kcl 40 Meq Premix Inj) 40 meq in 100 mls @ 50 mls/hr IV.SIG Q2H PRN PRN Reason: For Potassium 2.8 - 3.2 mEq/L Potassium Chloride (Kcl 40 Meq Premix Inj) 40 meq in 100 mls @ 25 mls/hr IV.SIG UNSCH PRN PRN Reason: For Potassium 3.3 - 3.5 mEq/L Potassium Chloride (Kcl 20 Meq Premix Inj) 20 meq in 100 mls @ 50 mls/hr IV.SIG Q2H PRN PRN Reason: For Potassium 2.8 - 3.2 mEq/L Potassium Phosphate 30 mmol/ (Sodium Chloride) 260 mls @ 42 mls/hr IV.SIG UNSCH PRN PRN Reason: SEE LABEL COMMENTS Sodium Phosphate 30 mmol/ (Sodium Chloride) 260 mls @ 42 mls/hr IV.SIG UNSCH PRN PRN Reason: For Phosphorus < 2.5 mg/dL Potassium Chloride (Kcl 20 Meq Premix Inj) 20 meq in 100 mls @ 50 mls/hr IV.SIG Q2H PRN PRN Reason: For Potassium 3.3 - 3.5 mEq/L Magnesium Sulfate 2 gm/ Sodium (Chloride) 100 mls @ 50 mls/hr IV.SIG ONCE ONE Stop: 01/04/18 19:46 Insulin Aspart (Novolog Insulin Correctional Sugar Inj) 0 unit SQ Q6HR [facility]; Protocol Last Admin: 01/04/18 12:17 Dose: Not Given Lactulose (Lactulose Liq) 30 ml PO DAILY PRN PRN Reason: SEVERE CONSITIPATION Magnesium Oxide (Mag-Ox) 800 mg PO UNSCH PRN PRN Reason: For Magnesium 1.2 - 1.6 mg/dL Pantoprazole Sodium (Protonix Inj) 40 mg IV.PUSH Q12H [facility] Last Admin: 01/04/18 16:24 Dose: 40 mg Potassium Bicarb/Potassium Chloride (K-Lyte Cl Eff) 50 meq PO UNSCH PRN PRN Reason: For Potassium 3.3 - 3.5 mEq/L Potassium Chloride (K-Dur) 20 meq PO ONCE ONE Stop: 01/04/18 17:48 Potassium Phosphate (K-Phos Original) 2,000 mg PO Q4H PRN PRN Reason: Phosphorus Less Than 2.5 mg/dL Potassium Phosphate (K-Phos Original) 2,000 mg PO UNSCH PRN PRN Reason: SEE LABEL COMMENTS Senna/Docusate Sodium (Lizette-Colace) 1 tab PO BID [facility] Last Admin: 01/04/18 08:22 Dose: Not Given Sennosides (Senokot) 17.2 mg PO Q12H PRN PRN Reason: Moderate Constipation Sodium Chloride (Ns Flush) 2 ml IV.FLUSH BID [facility] Last Admin: 01/04/18 08:22 Dose: Not Given Sodium Chloride (Ns Flush) 2 ml IV.FLUSH UNSCH PRN PRN Reason: FLUSH AFTER USING IV ACCESS <Patyt Davis - Last Filed: 01/04/18 18:03> Active Medications: Active Medications Acetaminophen (Tylenol) 650 mg PO Q4H PRN PRN Reason: SEE LABEL COMMENTS Acetaminophen (Tylenol) 650 mg PO Q6H PRN PRN Reason: PAIN 1-10 AND/OR FEVER >101F Al Hydroxide/Mg Hydroxide (Milk Of Magnesia Liq) 30 ml PO Q12H PRN PRN Reason: Mild Constipation Albuterol (Albuterol Neb (Prn)) 2.5 mg NEB Q2HR NEB PRN PRN Reason: SHORTNESS OF BREATH/WHEEZING Albuterol (Duoneb Neb (Anai)) 1 ampul NEB Q4HR NEB ANAI Last Admin: 01/05/18 10:56 Dose: 1 ampul Bisacodyl (Dulcolax Supp) 10 mg RECTAL DAILY PRN PRN Reason: SEVERE CONSITIPATION Chlorhexidine Gluconate (Chlorhexidine 2% Cloth) 3 pack TOPICAL DAILY@0400 ANAI Stop: 01/09/18 03:59 Last Admin: 01/05/18 03:24 Dose: 3 pack Chlorhexidine Gluconate (Chlorhexidine 2% Cloth) 3 pack TOPICAL DAILY@0400 PRN PRN Reason: Extra cloth needed Stop: 01/09/18 03:59 Dextrose (D50w Vial) 50 ml IV.PUSH UNSCH PRN PRN Reason: PER HYPOGLYCEMIA PROTOCOL Diphenhydramine HCl (Benadryl) 25 mg PO Q4H PRN PRN Reason: SEE LABEL COMMENTS Furosemide (Lasix) 40 mg PO DAILY [facility] Last Admin: 01/05/18 08:26 Dose: 40 mg Glucagon (Glucagon Inj) 1 mg OTHER UNSCH PRN PRN Reason: for Hypoglycemia Protocol Magnesium Sulfate 4 gm/ Sodium (Chloride) 100 mls @ 50 mls/hr IV.SIG UNSCH PRN PRN Reason: For Magnesium 0.9 - 1.1 mg/dL Magnesium Sulfate 2 gm/ Sodium (Chloride) 100 mls @ 50 mls/hr IV.SIG UNSCH PRN PRN Reason: For Magnesium 1.2 - 1.6 mg/dL Potassium Chloride (Kcl 40 Meq Premix Inj) 40 meq in 100 mls @ 50 mls/hr IV.SIG Q2H PRN PRN Reason: For Potassium 2.8 - 3.2 mEq/L Potassium Chloride (Kcl 40 Meq Premix Inj) 40 meq in 100 mls @ 25 mls/hr IV.SIG UNSCH PRN PRN Reason: For Potassium 3.3 - 3.5 mEq/L Potassium Chloride (Kcl 20 Meq Premix Inj) 20 meq in 100 mls @ 50 mls/hr IV.SIG Q2H PRN PRN Reason: For Potassium 2.8 - 3.2 mEq/L Potassium Phosphate 30 mmol/ (Sodium Chloride) 260 mls @ 42 mls/hr IV.SIG UNSCH PRN PRN Reason: SEE LABEL COMMENTS Sodium Phosphate 30 mmol/ (Sodium Chloride) 260 mls @ 42 mls/hr IV.SIG UNSCH PRN PRN Reason: For Phosphorus < 2.5 mg/dL Potassium Chloride (Kcl 20 Meq Premix Inj) 20 meq in 100 mls @ 50 mls/hr IV.SIG Q2H PRN PRN Reason: For Potassium 3.3 - 3.5 mEq/L Insulin Aspart (Novolog Insulin Correctional Sugar Inj) 0 unit SQ Q6HR [facility]; Protocol Last Admin: 01/05/18 12:26 Dose: Not Given Lactulose (Lactulose Liq) 30 ml PO DAILY PRN PRN Reason: SEVERE CONSITIPATION Magnesium Oxide (Mag-Ox) 800 mg PO UNSCH PRN PRN Reason: For Magnesium 1.2 - 1.6 mg/dL Pantoprazole Sodium (Protonix Inj) 40 mg IV.PUSH Q12H [facility] Last Admin: 01/05/18 03:21 Dose: 40 mg Potassium Bicarb/Potassium Chloride (K-Lyte Cl Eff) 50 meq PO UNSCH PRN PRN Reason: For Potassium 3.3 - 3.5 mEq/L Potassium Phosphate (K-Phos Original) 2,000 mg PO Q4H PRN PRN Reason: Phosphorus Less Than 2.5 mg/dL Potassium Phosphate (K-Phos Original) 2,000 mg PO UNSCH PRN PRN Reason: SEE LABEL COMMENTS Senna/Docusate Sodium (Lizette-Colace) 1 tab PO BID [facility] Last Admin: 01/05/18 08:27 Dose: Not Given Sennosides (Senokot) 17.2 mg PO Q12H PRN PRN Reason: Moderate Constipation Sodium Chloride (Ns Flush) 2 ml IV.FLUSH BID [facility] Last Admin: 01/05/18 08:26 Dose: 2 ml Sodium Chloride (Ns Flush) 2 ml IV.FLUSH UNSCH PRN PRN Reason: FLUSH AFTER USING IV ACCESS <Lary Ledesma - Last Filed: 01/05/18 14:05> Allergies Allergy/AdvReac Type Severity Reaction Status Date / Time No Known Allergies Allergy Verified 01/03/18 14:07 Home Medications Medication Instructions Recorded Confirmed Type atorvastatin 40 mg PO HS 01/03/18 01/03/18 History carvedilol 12.5 mg PO BID 01/03/18 01/03/18 History furosemide [Lasix] 40 mg PO DAILY 01/03/18 01/03/18 History hydrocodone-acetaminophen [[place]] 1 tab PO BID PRN 01/03/18 01/03/18 History potassium chloride 20 meq PO DAILY 01/03/18 01/03/18 History warfarin [Jantoven] 1.5 mg PO 01/03/18 History warfarin [Jantoven] 3 mg PO DAILY 01/03/18 01/03/18 History Exam Vital signs: Vital Signs 01/03/18 18:10 01/03/18 18:18 01/03/18 18:38 Temperature 98.3 F 97.9 F Pulse Rate 62 59 L 56 L Respiratory Rate 41 H 27 H 30 H Blood Pressure 120/51 L 120/51 L Pulse Oximetry 100 100 100 01/03/18 19:00 01/03/18 19:01 01/03/18 20:00 Temperature 98.7 F Pulse Rate 56 L 57 L 57 L Respiratory Rate 21 19 26 H Blood Pressure 113/53 L 125/57 L Pulse Oximetry 100 100 100 01/03/18 21:00 01/03/18 22:00 01/03/18 22:01 Temperature Pulse Rate 56 L 57 L 58 L Respiratory Rate 24 27 H 26 H Blood Pressure 133/63 119/59 L Pulse Oximetry 100 100 100 01/03/18 22:56 01/03/18 23:00 01/03/18 23:02 Temperature 98.6 F Pulse Rate 59 L 59 L 59 L Respiratory Rate 19 24 23 Blood Pressure 119/59 L 123/56 L Pulse Oximetry 99 100 100 01/04/18 00:00 01/04/18 00:01 01/04/18 00:04 Temperature 98.3 F Pulse Rate 60 60 59 L Respiratory Rate 30 H 35 H 16 Blood Pressure 139/54 L Pulse Oximetry 100 100 01/04/18 01:00 01/04/18 02:00 01/04/18 02:25 Temperature 98.5 F Pulse Rate 59 L 59 L 59 L Respiratory Rate 21 16 17 Blood Pressure 115/59 L 116/58 L 116/58 L Pulse Oximetry 100 100 100 01/04/18 03:00 01/04/18 03:01 01/04/18 04:00 Temperature 98.4 F Pulse Rate 59 L 59 L 58 L Respiratory Rate 25 H 27 H 23 Blood Pressure 100/49 L 113/55 L Pulse Oximetry 100 99 100 01/04/18 04:29 01/04/18 05:00 01/04/18 06:00 Temperature Pulse Rate 59 L 60 62 Respiratory Rate 16 24 29 H Blood Pressure 107/49 L Pulse Oximetry 100 99 100 01/04/18 06:08 01/04/18 06:58 01/04/18 07:00 Temperature 98.5 F Pulse Rate 62 61 62 Respiratory Rate 22 16 16 Blood Pressure 122/59 L 122/59 L Pulse Oximetry 100 100 100 01/04/18 08:00 01/04/18 11:08 01/04/18 11:55 Temperature 98.7 F Pulse Rate 62 62 Respiratory Rate 23 19 Blood Pressure 127/60 Pulse Oximetry 100 100 01/04/18 15:18 01/04/18 15:46 Temperature 98.0 F Pulse Rate 60 62 Respiratory Rate 16 21 Blood Pressure 127/62 Pulse Oximetry 98 Intake & Output 01/03/18 01/04/18 01/04/18 18:59 06:59 18:59 Intake Total 0 / 0 2146 / 2146 800 / 800 Output Total 500 / 500 650 / 650 Balance 0 / 0 1646 / 1646 150 / 150 Weight 129 kg 131 kg Intake: IV 1000 / 1000 Intake (Blood Product) Amt 0 / 0 1146 / 1146 800 / 800 Plasma Thawed 5 Day Cp2d Unit 346 / 346 [id number] Plasma Thawed 5 Day Cp2d Unit 0 / 0 [id number] Rbc As-3 Leukoreduced Unit 400 / 400 [id number] Rbc As-3 Leukoreduced Unit 0 / 0 400 / 400 [id number] Rbc As-3 Leukoreduced Unit 0 / 0 400 / 400 [id number] Rbc As-3 Leukoreduced Unit 400 / 400 [id number] Output: Urine 500 / 500 650 / 650 Other: Date of Last Bowel Movement 01/03/18 01/03/18 01/03/18 # Bowel Movements 1 Weight On Admission 124.284 kg - Constitutional no acute distress - Routine HEENT Exam Head: Present: normocephalic - Routine Respiratory Exam Present: CTA bilaterally. Absent: accessory muscle use - Routine Cardiovascular Exam Present: S1, S2 - Routine Abdominal Exam Present: soft, normoactive bowel sounds. Absent: tenderness, distended, firm - Routine Extremities Exam Present: edema - Routine Skin Exam Present: dry, normal turgor - Routine Neurological Exam Present: alert - Routine Psychiatric Exam Present: normal affect, cooperative <Davis,Patty - Last Filed: 01/04/18 18:03> Vital signs: Vital Signs 01/04/18 15:18 01/04/18 15:46 01/04/18 16:00 Temperature 98.0 F 98.0 F Pulse Rate 60 62 63 Respiratory Rate 16 21 25 H Blood Pressure 127/62 125/58 L Pulse Oximetry 98 93 L 01/04/18 19:00 01/04/18 20:00 01/04/18 20:01 Temperature 98.4 F Pulse Rate 63 62 62 Respiratory Rate 23 26 H 27 H Blood Pressure 132/63 133/60 Pulse Oximetry 89 L 85 L 89 L 01/04/18 21:00 01/04/18 21:13 01/04/18 22:00 Temperature Pulse Rate 63 66 64 Respiratory Rate 36 H 20 21 Blood Pressure 141/63 H 143/66 H Pulse Oximetry 77 L 92 L 01/04/18 23:00 01/05/18 00:00 01/05/18 00:35 Temperature 98.6 F Pulse Rate 64 60 66 Respiratory Rate 22 21 18 Blood Pressure 160/70 H 132/63 Pulse Oximetry 95 88 L 01/05/18 01:00 01/05/18 02:00 01/05/18 02:01 Temperature Pulse Rate 64 65 65 Respiratory Rate 16 20 27 H Blood Pressure 134/61 154/67 H Pulse Oximetry 98 88 L 94 L 01/05/18 03:00 01/05/18 04:00 01/05/18 05:00 Temperature 98.4 F Pulse Rate 67 62 66 Respiratory Rate 27 H 24 24 Blood Pressure 141/62 H 129/58 L 138/65 Pulse Oximetry 85 L 92 L 94 L 01/05/18 06:00 01/05/18 06:01 01/05/18 07:00 Temperature Pulse Rate 63 63 61 Respiratory Rate 33 H 36 H 22 Blood Pressure 109/55 L Pulse Oximetry 94 L 94 L 97 01/05/18 07:01 01/05/18 07:48 01/05/18 08:00 Temperature Pulse Rate 62 64 65 Respiratory Rate 20 24 19 Blood Pressure 151/62 H Pulse Oximetry 99 96 95 01/05/18 08:09 01/05/18 09:00 01/05/18 10:00 Temperature Pulse Rate 65 64 63 Respiratory Rate 19 17 19 Blood Pressure 147/65 H 137/63 138/60 Pulse Oximetry 98 91 L 95 01/05/18 10:56 01/05/18 11:00 01/05/18 11:10 Temperature Pulse Rate 69 66 65 Respiratory Rate 24 34 H 17 Blood Pressure 131/60 Pulse Oximetry 94 L 93 L Intake & Output 01/04/18 01/05/18 01/05/18 18:59 06:59 18:59 Intake Total 800 / 800 300 / 300 120 / 120 Output Total 650 / 650 1050 / 1050 Balance 150 / 150 300 / 300 -930 / -930 Intake: IV 300 / 300 NS Inj 1,000 ML @ 84 mls/hr IV. 200 / 200 CONT .[id number] [facility] Rx#:[id number] Magnesium Sulfate Inj 2 GM In 100 / 100 NS Inj 96 ML @ 50 mls/hr IV.SIG ONCE ONE Rx#:[id number] Oral 120 / 120 Intake (Blood Product) Amt 800 / 800 Plasma Thawed 5 Day Cp2d Unit 0 / 0 [id number] Rbc As-3 Leukoreduced Unit 400 / 400 [id number] Rbc As-3 Leukoreduced Unit 400 / 400 [id number] Output: Urine 650 / 650 1050 / 1050 Other: Date of Last Bowel Movement 01/03/18 01/03/18 01/05/18 # Bowel Movements 0 <Lary Ledesma - Last Filed: 01/05/18 14:05> Results - Labs CBC & Chem 7: 01/04/18 05:52 01/04/18 05:52 Labs: Laboratory Results - last 24 hr 01/03/18 01/03/18 01/03/18 17:25 17:27 17:52 WBC RBC Hgb Hct MCV MCH MCHC RDW Plt Count MPV Prelim Diff (Auto) Neut % (Auto) Lymph % (Auto) [place] % (Auto) Eos % (Auto) Baso % (Auto) Neut # (Auto) Lymph # (Auto) [place] # (Auto) Eos # (Auto) Baso # (Auto) WBC Differential Diff Scan Differential Comment Platelet Estimate Platelet Morphology Dimorphic RBCs Ovalocytes PT INR APTT Sodium Potassium Chloride Carbon Dioxide Anion Gap BUN Creatinine Estimated GFR POC Glucose Random Glucose Lactic Acid Calcium Calcium Adj for Albumin Phosphorus Magnesium Total Bilirubin AST ALT Alkaline Phosphatase Total Protein Albumin Nasal Screen MRSA (PCR) MTS Gel Crossmatch See Detail See Detail Blood Bank Comment Bld Prod Order Comment 01/03/18 01/04/18 01/04/18 18:30 00:00 04:00 WBC RBC Hgb Hct MCV MCH MCHC RDW Plt Count MPV Prelim Diff (Auto) Neut % (Auto) Lymph % (Auto) [place] % (Auto) Eos % (Auto) Baso % (Auto) Neut # (Auto) Lymph # (Auto) [place] # (Auto) Eos # (Auto) Baso # (Auto) WBC Differential Diff Scan Differential Comment Platelet Estimate Platelet Morphology Dimorphic RBCs Ovalocytes PT 32.4 H D INR 3.2 APTT 38.5 H Sodium Potassium Chloride Carbon Dioxide Anion Gap BUN Creatinine Estimated GFR POC Glucose 175 H Random Glucose Lactic Acid Calcium Calcium Adj for Albumin Phosphorus Magnesium Total Bilirubin AST ALT Alkaline Phosphatase Total Protein Albumin Nasal Screen MRSA (PCR) Not detected MTS Gel Crossmatch Blood Bank Comment Bld Prod Order Comment 01/04/18 01/04/18 01/04/18 05:11 05:52 05:52 WBC 3.0 L RBC 2.33 L Hgb 5.9 L* Hct 18.1 L* MCV 77.8 L MCH 25.4 L MCHC 32.7 RDW 16.4 Plt Count 115 L MPV 8.2 Prelim Diff (Auto) Slide review pending Neut % (Auto) 60.1 Lymph % (Auto) 23.8 [place] % (Auto) 12.8 H Eos % (Auto) 2.2 Baso % (Auto) 1.1 Neut # (Auto) 1.8 Lymph # (Auto) 0.7 L [place] # (Auto) 0.4 Eos # (Auto) 0.1 Baso # (Auto) 0.0 WBC Differential . Diff Scan Auto diff confirmed Differential Comment . Platelet Estimate Low L Platelet Morphology Normal Dimorphic RBCs Present H Ovalocytes 1+ H PT INR APTT Sodium 139 Potassium 3.7 Chloride 108 H Carbon Dioxide 24.1 Anion Gap 7 BUN 17 Creatinine 1.29 Estimated GFR 55 L POC Glucose 121 H Random Glucose 102 Lactic Acid Calcium 7.0 L* Calcium Adj for Albumin 7.9 L Phosphorus 3.0 Magnesium 1.8 Total Bilirubin 5.6 H AST 41 H ALT 33 Alkaline Phosphatase 70 Total Protein 5.4 L Albumin 2.5 L Nasal Screen MRSA (PCR) MTS Gel Crossmatch Blood Bank Comment Bld Prod Order Comment 01/04/18 01/04/18 01/04/18 05:52 06:43 06:44 WBC RBC Hgb Hct MCV MCH MCHC RDW Plt Count MPV Prelim Diff (Auto) Neut % (Auto) Lymph % (Auto) [place] % (Auto) Eos % (Auto) Baso % (Auto) Neut # (Auto) Lymph # (Auto) [place] # (Auto) Eos # (Auto) Baso # (Auto) WBC Differential Diff Scan Differential Comment Platelet Estimate Platelet Morphology Dimorphic RBCs Ovalocytes PT INR APTT Sodium Potassium Chloride Carbon Dioxide Anion Gap BUN Creatinine Estimated GFR POC Glucose Random Glucose Lactic Acid 1.9 Calcium Calcium Adj for Albumin Phosphorus Magnesium Total Bilirubin AST ALT Alkaline Phosphatase Total Protein Albumin Nasal Screen MRSA (PCR) MTS Gel Crossmatch See Detail Blood Bank Comment Bld Prod Order Comment 01/04/18 12:15 WBC RBC Hgb Hct MCV MCH MCHC RDW Plt Count MPV Prelim Diff (Auto) Neut % (Auto) Lymph % (Auto) [place] % (Auto) Eos % (Auto) Baso % (Auto) Neut # (Auto) Lymph # (Auto) [place] # (Auto) Eos # (Auto) Baso # (Auto) WBC Differential Diff Scan Differential Comment Platelet Estimate Platelet Morphology Dimorphic RBCs Ovalocytes PT INR APTT Sodium Potassium Chloride Carbon Dioxide Anion Gap BUN Creatinine Estimated GFR POC Glucose 142 H Random Glucose Lactic Acid Calcium Calcium Adj for Albumin Phosphorus Magnesium Total Bilirubin AST ALT Alkaline Phosphatase Total Protein Albumin Nasal Screen MRSA (PCR) MTS Gel Crossmatch Blood Bank Comment Bld Prod Order Comment <Patty Davis - Last Filed: 01/04/18 18:03> - Labs CBC & Chem 7: 01/05/18 03:47 01/05/18 03:47 Labs: Laboratory Results - last 24 hr 01/03/18 01/04/18 01/04/18 17:52 06:44 18:03 WBC 4.3 RBC 3.10 L Hgb 8.3 L D Hct 24.4 L MCV 78.7 L MCH 26.8 L MCHC 34.0 RDW 16.1 Plt Count 114 L MPV 8.1 Neut % (Auto) Lymph % (Auto) [place] % (Auto) Eos % (Auto) Baso % (Auto) Neut # (Auto) Lymph # (Auto) [place] # (Auto) Eos # (Auto) Baso # (Auto) WBC Differential Differential Comment PT INR APTT Sodium Potassium Chloride Carbon Dioxide Anion Gap BUN Creatinine Estimated GFR POC Glucose Random Glucose Calcium Calcium Adj for Albumin Phosphorus Magnesium Total Bilirubin AST ALT Alkaline Phosphatase Total Protein Albumin MTS Gel Crossmatch See Detail Blood Bank Comment 01/04/18 01/04/18 01/05/18 18:03 18:55 00:03 WBC RBC Hgb Hct MCV MCH MCHC RDW Plt Count MPV Neut % (Auto) Lymph % (Auto) [place] % (Auto) Eos % (Auto) Baso % (Auto) Neut # (Auto) Lymph # (Auto) [place] # (Auto) Eos # (Auto) Baso # (Auto) WBC Differential Differential Comment PT 25.7 H INR 2.5 APTT 37.3 H Sodium Potassium Chloride Carbon Dioxide Anion Gap BUN Creatinine Estimated GFR POC Glucose 149 H 131 H Random Glucose Calcium Calcium Adj for Albumin Phosphorus Magnesium Total Bilirubin AST ALT Alkaline Phosphatase Total Protein Albumin MTS Gel Crossmatch Blood Bank Comment 01/05/18 01/05/18 01/05/18 03:47 03:47 03:47 WBC 3.7 L RBC 2.80 L Hgb 7.4 L Hct 22.2 L MCV 79.1 L MCH 26.4 L MCHC 33.4 RDW 16.1 Plt Count 109 L MPV 7.9 Neut % (Auto) 65.7 Lymph % (Auto) 20.0 [place] % (Auto) 11.5 H Eos % (Auto) 2.0 Baso % (Auto) 0.8 Neut # (Auto) 2.4 Lymph # (Auto) 0.7 L [place] # (Auto) 0.4 Eos # (Auto) 0.1 Baso # (Auto) 0.0 WBC Differential . Differential Comment Auto diff final PT 24.6 H INR 2.4 APTT 37.6 H Sodium 140 Potassium 3.4 L Chloride 106 Carbon Dioxide 28.3 Anion Gap 6 BUN 15 Creatinine 1.17 Estimated GFR 61 L POC Glucose Random Glucose 100 Calcium 6.7 L* Calcium Adj for Albumin 7.6 L Phosphorus 3.3 Magnesium 1.7 Total Bilirubin 4.2 H AST 37 ALT 30 Alkaline Phosphatase 65 Total Protein 5.3 L Albumin 2.4 L MTS Gel Crossmatch Blood Bank Comment 01/05/18 01/05/18 06:21 12:02 WBC RBC Hgb Hct MCV MCH MCHC RDW Plt Count MPV Neut % (Auto) Lymph % (Auto) [place] % (Auto) Eos % (Auto) Baso % (Auto) Neut # (Auto) Lymph # (Auto) [place] # (Auto) Eos # (Auto) Baso # (Auto) WBC Differential Differential Comment PT INR APTT Sodium Potassium Chloride Carbon Dioxide Anion Gap BUN Creatinine Estimated GFR POC Glucose 115 H 111 H Random Glucose Calcium Calcium Adj for Albumin Phosphorus Magnesium Total Bilirubin AST ALT Alkaline Phosphatase Total Protein Albumin MTS Gel Crossmatch Blood Bank Comment <Lary Ledesma - Last Filed: 01/05/18 14:05> Assessment and Plan (1) GI bleed Status: Acute Code(s): K92.2 - Gastrointestinal hemorrhage, unspecified - Plan Patient is a 72-year-old male who presented to the emergency room at [facility] on 01/03/2018. Past medical history includes atrial fibrillation on warfarin-, hypertension, hyperlipidemia, prostate cancer. Patient also has significant history of bilateral lower extremity edema-on furosemide. Upon consultation, patient endorsed that he presented to [facility] with complaint of shortness of breath and generalized weakness. Patient states that he noticed dark stools for the last 2-3 weeks. He denies any use of aspirin or NSAIDs. Upon admission, hemoglobin 4 and stool was guaiac positive. Patient denies any abdominal pain nausea or vomiting. Reports he had a colonoscopy done 3 years ago that showed polyps which were benign. He endorses a history of hemorrhoids and denies ever having had an EGD in the past. Patient denies any difficulty swallowing, painful swallowing or heartburn. Patient denies any symptoms of acid reflux. Patient states his last dose of Coumadin was 2017 and his prescribed dose is 3 mg p.o. daily; and 1.5 mg p.o. every Wednesday. Patient states family history significant for his father having colon cancer. Patient denies any tobacco use states he stopped smoking 25 years ago and reports EtOH use socially with an occasional beer or glass of wine. Our service has been consulted to evaluate patient for GI bleed and guaiac positive stool GI bleed Patient presents with 2-3-week history of dark stools. Presented to the emergency room at [facility] with complaint of generalized weakness. History of atrial fibrillation on warfarin. Coumadin toxicity noted on admission INR 6.5. Patient transfused with 2 units of FFP and 6 units of packed RBCs for hemoglobin of 4. 01/04/2018 hemoglobin 5.9 hematocrit 18.1 INR 3.2 Plan -N.p.o. after midnight -Obtain consent for EGD -Recheck INR in the a.m. -Monitor for bleeding -Transfuse as needed -Protonix 40 mg IV every 12 -Avoid anticoagulants and NSAIDs -Supportive care -Further recommendations to follow This patient has been seen by myself and Dr. Ledesma and this note is written on his behalf - Attending Attestation Dr. ledesma <Patty Davis - Last Filed: 01/04/18 18:03> (1) GI bleed Status: Acute Code(s): K92.2 - Gastrointestinal hemorrhage, unspecified - Attending Attestation Seen and examined, plan as above. Will check INR and proceed with EGD if INR less than 2. Further recommendations to follow . Thank you for the consult. <Lary Ledesma - Last Filed: 01/05/18 14:05>
[2018-01-04 19:10] LABS: Hematocrit 24.4 % (39.0-51.0); Hemoglobin 8.3 gm/dL (13.0-17.0); Mean Corpuscular Hemoglobin 26.8 pg (27.0-34.0); Mean Corpuscular Volume 78.7 fL (80.0-100.0); Mean Platelet Volume 8.1 fL (7.0-11.0); Platelet Count 114 th/mm3 (150-450); Red Cell Distribution Width 16.1 % (11.6-17.2); White Blood Count 4.3 th/mm3 (4.0-11.0)
[2018-01-04 19:27] LABS: Activated Partial Thrombo Time 37.3 sec (23.4-31.7); INR 2.5 Ratio; Prothrombin Time 25.7 sec (9.8-11.6)
[2018-01-04] MEDS ORDERED: Magnesium Sulfate Inj 2 GM in Sodium Chlor 0.9% Inj 96 ML IV.SIG ONE (20:00)
[2018-01-05] MEDS: Insulin NovoLOG Aspart Correctional Sugar Inj SQ SCH ×5 (00:19→23:51)
[2018-01-05] MEDS: Pantoprazole Inj 40 MG Vial IV.PUSH SCH ×2 (03:21→14:58)
[2018-01-05] MEDS: Chlorhexidine Gluconate 2% 1 Pack (2 Cloths) TOPICAL SCH (03:24)
[2018-01-05 04:29] LABS: Baso % (Auto) 0.8 % (0.0-2.0); Eos # (Auto) 0.1 th/mm3 (0.0-0.4); Hematocrit 22.2 % (39.0-51.0); Hemoglobin 7.4 gm/dL (13.0-17.0); Lymph # (Auto) 0.7 th/mm3 (1.0-4.8); Mean Corpuscular HGB Conc 33.4 % (32.0-36.0); Mean Corpuscular Hemoglobin 26.4 pg (27.0-34.0); Mean Corpuscular Volume 79.1 fL (80.0-100.0); Mean Platelet Volume 7.9 fL (7.0-11.0); Mono # (Auto) 0.4 th/mm3 (0.0-0.9); Mono % (Auto) 11.5 % (0.0-8.0); Neut # (Auto) 2.4 th/mm3 (1.8-7.7); Neut % (Auto) 65.7 % (16.0-70.0); Platelet Count 109 th/mm3 (150-450); Red Cell Distribution Width 16.1 % (11.6-17.2); White Blood Count 3.7 th/mm3 (4.0-11.0)
[2018-01-05 04:41] LABS: Activated Partial Thrombo Time 37.6 sec (23.4-31.7); INR 2.4 Ratio; Prothrombin Time 24.6 sec (9.8-11.6)
[2018-01-05 05:01] LABS: Albumin 2.4 g/dL (3.4-5.0); Calcium 6.7 mg/dL (8.5-10.1); Carbon Dioxide 28.3 meq/L (21.0-32.0); Magnesium 1.7 mg/dL (1.5-2.5); Phosphorus 3.3 mg/dL (2.5-4.9); Potassium 3.4 meq/L (3.5-5.1); Total Protein 5.3 g/dL (6.4-8.2)
[2018-01-05] MEDS: Furosemide 40 MG Tablet PO SCH (08:26)
[2018-01-05] MEDS: Senna/Docusate Sodium 8.6/50 MG Tablet PO SCH ×2 (08:27→20:44)
--- NOTE | 2018-01-05 15:23 | GIPROC ---
[facility] [address] [facility]. [facility], [address] EGD PROCEDURE REPORT EXAM DATE: 01/05/2018 PATIENT NAME: Joseluis Linares MR #: [id number] BIRTHDATE: 1945 ATTENDING: Lary Garcia MD ORDER #: [id number] BOILERHOUSE MECHANIC: Ingrid Mistry and Jayla Hardy STATUS: inpatient INDICATIONS: The patient is a 72 yr old male here for an EGD due to melena PROCEDURE PERFORMED: EGD, diagnostic MEDICATIONS: Per Anesthesia and None. TOPICAL ANESTHETIC: none CONSENT: The patient understands the risks and benefits of the procedure and understands that these risks include, but are not limited to: sedation, allergic reaction, infection, perforation and/or bleeding. Alternative means of evaluation and treatment include, among others: physical exam, x-rays, and/or surgical intervention. The patient elects to proceed with this endoscopic procedure. medical equipment was checked for proper function. Hand hygiene and appropriate measures for infection prevention was taken. After the risks, benefits and alternatives of the procedure were thoroughly explained, Informed consent was verified, confirmed and timeout was successfully executed by the treatment team. The patient was anesthetized with topical anesthesia and the Pentax EG-[id number] endoscope was introduced through the mouth and advanced to the second portion of the duodenum. Retroflexion was performed and was normal The gastroscope was then slowly withdrawn and removed. ESOPHAGUS: The mucosa of the esophagus appeared normal. DUODENUM: The duodenal mucosa appeared normal. STOMACH: A large non-bleeding, round, deep and clean-based ulcer with surrounding edema was found at the pylorus. ADVERSE EVENTS: There were no complications. IMPRESSIONS: 1. Large ulcer was found at the pylorus 2. The esophagus appeared normal 3. Normal duodenal mucosa 4. Retroflexion was performed and was normal RECOMMENDATIONS: 1. Continue PPI 2. Follow-up of helicobacter pylori status, by stool antigen. PATIENT CONDITION: stable DISPOSITION: Observation REPEAT EXAM: Return 8 weeks EGD Lary Garcia MD eSigned: Lary Garcia MD 01/05/2018 3:22 PM cc: PATIENT NAME: Joseluis Linares MR#: [id number]
--- NOTE | 2018-01-05 16:26 | P.PNIM ---
Subjective Interval history: This is a 72-year-old male. Date of admission 01/03/2018. Past medical history includes atrial fibrillation on chronic warfarin, hypertension, hyperlipidemia, prostate cancer. Patient also has significant bilateral lower extremity edema on furosemide. Patient presented to [facility] with progressive weakness. Patient has had dark stools. Denies any aspirin, NSAID or steroid use. Denies abdominal pain. Patient a colonoscopy 2 years ago which revealed only polyps. Internal hemorrhoids. At this facility, patient was noted have a hemoglobin of 4.4. INR of 6.5. Patient received phytonadione and 2 units PRBCs. Recheck later this evening after receiving furosemide and readdress. Denies chest pain. Positive shortness of breath. Positive orthostatics. Subjective 01/04: Transfuse 2 units PRBCs overnight. INR is currently 3.2. Hemoglobin 5.8. Transfusing 2 additional units right now. 01-05 HAD EGD TODAY WHICH SHOWED A PYLORIC ULCER CLEAR LIQUIDS TODAY AM LABS MOVE OUT OF ICU DW RN AND PT INCREASE ACTIVITY - Physical Exam Vital signs: Vital Signs 01/04/18 19:00 01/04/18 20:00 01/04/18 20:01 Temperature 98.4 F Pulse Rate 63 62 62 Respiratory Rate 23 26 H 27 H Blood Pressure 132/63 133/60 Pulse Oximetry 89 L 85 L 89 L 01/04/18 21:00 01/04/18 21:13 01/04/18 22:00 Temperature Pulse Rate 63 66 64 Respiratory Rate 36 H 20 21 Blood Pressure 141/63 H 143/66 H Pulse Oximetry 77 L 92 L 01/04/18 23:00 01/05/18 00:00 01/05/18 00:35 Temperature 98.6 F Pulse Rate 64 60 66 Respiratory Rate 22 21 18 Blood Pressure 160/70 H 132/63 Pulse Oximetry 95 88 L 01/05/18 01:00 01/05/18 02:00 01/05/18 02:01 Temperature Pulse Rate 64 65 65 Respiratory Rate 16 20 27 H Blood Pressure 134/61 154/67 H Pulse Oximetry 98 88 L 94 L 01/05/18 03:00 01/05/18 04:00 01/05/18 05:00 Temperature 98.4 F Pulse Rate 67 62 66 Respiratory Rate 27 H 24 24 Blood Pressure 141/62 H 129/58 L 138/65 Pulse Oximetry 85 L 92 L 94 L 01/05/18 06:00 01/05/18 06:01 01/05/18 07:00 Temperature Pulse Rate 63 63 61 Respiratory Rate 33 H 36 H 22 Blood Pressure 109/55 L Pulse Oximetry 94 L 94 L 97 01/05/18 07:01 01/05/18 07:48 01/05/18 08:00 Temperature Pulse Rate 62 64 65 Respiratory Rate 20 24 19 Blood Pressure 151/62 H Pulse Oximetry 99 96 95 01/05/18 08:09 01/05/18 09:00 01/05/18 10:00 Temperature Pulse Rate 65 64 63 Respiratory Rate 19 17 19 Blood Pressure 147/65 H 137/63 138/60 Pulse Oximetry 98 91 L 95 01/05/18 10:56 01/05/18 11:00 01/05/18 11:10 Temperature Pulse Rate 69 66 65 Respiratory Rate 24 34 H 17 Blood Pressure 131/60 Pulse Oximetry 94 L 93 L 01/05/18 12:00 01/05/18 13:00 01/05/18 13:01 Temperature Pulse Rate 66 67 69 Respiratory Rate 23 23 33 H Blood Pressure 129/60 98/47 L Pulse Oximetry 98 97 93 L 01/05/18 13:57 01/05/18 14:00 01/05/18 14:21 Temperature Pulse Rate 66 65 65 Respiratory Rate Blood Pressure 132/58 L 116/60 98/44 L Pulse Oximetry 100 100 100 01/05/18 14:32 01/05/18 14:49 01/05/18 14:51 Temperature Pulse Rate 63 63 63 Respiratory Rate 24 23 29 H Blood Pressure 117/49 L 125/58 L Pulse Oximetry 98 99 01/05/18 14:55 01/05/18 15:00 01/05/18 15:01 Temperature 98 F Pulse Rate 66 63 62 Respiratory Rate 24 23 19 Blood Pressure 88/52 L 127/57 L 127/57 L Pulse Oximetry 100 100 100 01/05/18 15:16 Temperature Pulse Rate 63 Respiratory Rate 22 Blood Pressure 109/49 L Pulse Oximetry 99 Intake & Output 01/04/18 01/05/18 01/05/18 18:59 06:59 18:59 Intake Total 800 / 800 300 / 300 320 / 320 Output Total 650 / 650 1050 / 1050 Balance 150 / 150 300 / 300 -730 / -730 Intake: IV 300 / 300 NS Inj 1,000 ML @ 84 mls/hr IV. 200 / 200 CONT .[id number] [facility] Rx#:[id number] Magnesium Sulfate Inj 2 GM In 100 / 100 NS Inj 96 ML @ 50 mls/hr IV.SIG ONCE ONE Rx#:[id number] Oral 120 / 120 Anesthesia Amount 200 / 200 Intake (Blood Product) Amt 800 / 800 Plasma Thawed 5 Day Cp2d Unit 0 / 0 [id number] Rbc As-3 Leukoreduced Unit 400 / 400 [id number] Rbc As-3 Leukoreduced Unit 400 / 400 [id number] Output: Urine 650 / 650 1050 / 1050 Other: Date of Last Bowel Movement 01/03/18 01/03/18 01/05/18 # Bowel Movements 0 Narrative: GENERAL: 72-year-old male currently in bed in no acute distress SKIN: Warm and dry. HEAD: Atraumatic. Normocephalic. EYES: Pupils equal and round. No scleral icterus. No injection or drainage. ENT: No nasal bleeding or discharge. Mucous membranes pink and moist. NECK: Trachea midline. No JVD. CARDIOVASCULAR: IRR. S1, S2. No S4.. RESPIRATORY: No accessory muscle use. Clear to auscultation. Breath sounds equal bilaterally. GASTROINTESTINAL: Abdomen soft, non-tender, nondistended. Hepatic and splenic margins not palpable. MUSCULOSKELETAL: Extremities 2-3+ bilateral lower extremity edema. No obvious deformities. NEUROLOGICAL: Awake and alert. No obvious cranial nerve deficits. Motor grossly within normal limits. Five out of 5 muscle strength in the arms and legs. Normal speech. PSYCHIATRIC: Appropriate mood and affect; insight and judgment normal. Results - Labs CBC & Chem 7: 01/05/18 03:47 01/05/18 03:47 Laboratory Results - last 24 hr 01/04/18 01/04/18 01/04/18 18:03 18:03 18:55 WBC 4.3 RBC 3.10 L Hgb 8.3 L D Hct 24.4 L MCV 78.7 L MCH 26.8 L MCHC 34.0 RDW 16.1 Plt Count 114 L MPV 8.1 Neut % (Auto) Lymph % (Auto) [place] % (Auto) Eos % (Auto) Baso % (Auto) Neut # (Auto) Lymph # (Auto) [place] # (Auto) Eos # (Auto) Baso # (Auto) WBC Differential Differential Comment PT 25.7 H INR 2.5 APTT 37.3 H Sodium Potassium Chloride Carbon Dioxide Anion Gap BUN Creatinine Estimated GFR POC Glucose 149 H Random Glucose Calcium Calcium Adj for Albumin Phosphorus Magnesium Total Bilirubin AST ALT Alkaline Phosphatase Total Protein Albumin 01/05/18 01/05/18 01/05/18 00:03 03:47 03:47 WBC 3.7 L RBC 2.80 L Hgb 7.4 L Hct 22.2 L MCV 79.1 L MCH 26.4 L MCHC 33.4 RDW 16.1 Plt Count 109 L MPV 7.9 Neut % (Auto) 65.7 Lymph % (Auto) 20.0 [place] % (Auto) 11.5 H Eos % (Auto) 2.0 Baso % (Auto) 0.8 Neut # (Auto) 2.4 Lymph # (Auto) 0.7 L [place] # (Auto) 0.4 Eos # (Auto) 0.1 Baso # (Auto) 0.0 WBC Differential . Differential Comment Auto diff final PT 24.6 H INR 2.4 APTT 37.6 H Sodium Potassium Chloride Carbon Dioxide Anion Gap BUN Creatinine Estimated GFR POC Glucose 131 H Random Glucose Calcium Calcium Adj for Albumin Phosphorus Magnesium Total Bilirubin AST ALT Alkaline Phosphatase Total Protein Albumin 01/05/18 01/05/18 01/05/18 03:47 06:21 12:02 WBC RBC Hgb Hct MCV MCH MCHC RDW Plt Count MPV Neut % (Auto) Lymph % (Auto) [place] % (Auto) Eos % (Auto) Baso % (Auto) Neut # (Auto) Lymph # (Auto) [place] # (Auto) Eos # (Auto) Baso # (Auto) WBC Differential Differential Comment PT INR APTT Sodium 140 Potassium 3.4 L Chloride 106 Carbon Dioxide 28.3 Anion Gap 6 BUN 15 Creatinine 1.17 Estimated GFR 61 L POC Glucose 115 H 111 H Random Glucose 100 Calcium 6.7 L* Calcium Adj for Albumin 7.6 L Phosphorus 3.3 Magnesium 1.7 Total Bilirubin 4.2 H AST 37 ALT 30 Alkaline Phosphatase 65 Total Protein 5.3 L Albumin 2.4 L 01/05/18 16:01 WBC RBC Hgb Hct MCV MCH MCHC RDW Plt Count MPV Neut % (Auto) Lymph % (Auto) [place] % (Auto) Eos % (Auto) Baso % (Auto) Neut # (Auto) Lymph # (Auto) [place] # (Auto) Eos # (Auto) Baso # (Auto) WBC Differential Differential Comment PT INR APTT Sodium Potassium Chloride Carbon Dioxide Anion Gap BUN Creatinine Estimated GFR POC Glucose 100 Random Glucose Calcium Calcium Adj for Albumin Phosphorus Magnesium Total Bilirubin AST ALT Alkaline Phosphatase Total Protein Albumin - Procedures EGD PROCEDURE REPORT EXAM DATE: 01/05/2018 PATIENT NAME: Joseluis Linares MR #: [id number] BIRTHDATE: 1945 ATTENDING: Lary Garcia MD ORDER #: [id number] CENSUS ENUMERATOR: Ingrid Mistry and Jayla Hardy STATUS: inpatient INDICATIONS: The patient is a 72 yr old male here for an EGD due to melena PROCEDURE PERFORMED: EGD, diagnostic MEDICATIONS: Per Anesthesia and None. TOPICAL ANESTHETIC: none CONSENT: The patient understands the risks and benefits of the procedure and understands that these risks include, but are not limited to: sedation, allergic reaction, infection, perforation and/or bleeding. Alternative means of evaluation and treatment include, among others: physical exam, x-rays, and/or surgical intervention. The patient elects to proceed with this endoscopic procedure. medical equipment was checked for proper function. Hand hygiene and appropriate measures for infection prevention was taken. After the risks, benefits and alternatives of the procedure were thoroughly explained, Informed consent was verified, confirmed and timeout was successfully executed by the treatment team. The patient was anesthetized with topical anesthesia and the Pentax EG-[id number] endoscope was introduced through the mouth and advanced to the second portion of the duodenum. Retroflexion was performed and was normal The gastroscope was then slowly withdrawn and removed. ESOPHAGUS: The mucosa of the esophagus appeared normal. DUODENUM: The duodenal mucosa appeared normal. STOMACH: A large non-bleeding, round, deep and clean-based ulcer with surrounding edema was found at the pylorus. ADVERSE EVENTS: There were no complications. IMPRESSIONS: 1. Large ulcer was found at the pylorus 2. The esophagus appeared normal 3. Normal duodenal mucosa 4. Retroflexion was performed and was normal RECOMMENDATIONS: 1. Continue PPI 2. Follow-up of helicobacter pylori status, by stool antigen. PATIENT CONDITION: stable DISPOSITION: Observation REPEAT EXAM: Return 8 weeks EGD Lary Garcia MD eSigned: Lary Garcia MD 01/05/2018 3:22 PM Assessment and Plan - Plan Plan: Neuro/Psych: History of cataract Acetaminophen 650 mg every 6 hours as needed fever/pain 1-10 CV: Atrial fibrillation Essential hypertension Hyperlipidemia Holding home medication of atorvastatin 40 mg daily. Resume clinically indicated Holding carvedilol 12.5 mg twice daily. Resume clinically indicated Resume furosemide 40 mg p.o. daily for holding potassium chloride 20 mEq p.o. daily. Initial troponin negative. Resp: Nasal cannula to maintain saturations greater than or equal to 92% Incentive spirometry while awake Follow-up on chest x-ray GI: Elevated AST N.p.o. status pantoprazole 40 mg IV twice daily for GI prophylaxis Gastroenterology consultation possible EGD in a.m. 01/05. : Straight catheterization as needed Endo: Sliding scale insulin Accu-Cheks to maintain euglycemia Renal: Acute kidney injury Monitor urine output accurate I's and O's Recheck BMP in a.m. 01/05 Heme: Leukopenia normocytic anemia Thrombocytopenia Coagulopathic state Holding warfarin 3 mg / 1.5 mg alternating days. Received 5 mg of phytonadione in ED. We will give 1 FFP 01/03 and 01/04 and recheck coags in a.m. 01/05 Normal reticulocyte count. Low iron but normal TIBC. ID: Monitor for signs and symptomatology infection FEN: Currently on normal saline at 84 cc an hour. Received 2 L normal saline ED MSK: Elevated BMI Weight loss encouraged Access -Utilize peripheral IV. Central line if indicated Prophylaxis -GI -pantoprazole -DVT -SCDs/pharmacological prophylaxis contraindicated with an acute anemia EGD SHOWED LARGE ULCER AT [place] AM LABS DW RN AND PT TRANSFER OUT OF ICU CLEAR LIQUID DIET HAS CHRONIC PAIN ON CHRONIC PAIN PER CHRONIC PAIN SPECIALIST Code Status: FULL CODE Discussed Condition With: RN AND PT Discharge Planning: PENDING STABLE LABS AM LABS
[2018-01-06] MEDS: Pantoprazole Inj 40 MG Vial IV.PUSH SCH ×2 (05:43→16:05)
[2018-01-06] MEDS: Chlorhexidine Gluconate 2% 1 Pack (2 Cloths) TOPICAL SCH ×2 (05:43→06:01)
[2018-01-06] MEDS: Insulin NovoLOG Aspart Correctional Sugar Inj SQ SCH ×3 (05:54→17:38)
[2018-01-06 06:09] LABS: Baso % (Auto) 0.8 % (0.0-2.0); Eos # (Auto) 0.1 th/mm3 (0.0-0.4); Eos % (Auto) 2.5 % (0.0-4.0); Hematocrit 21.6 % (39.0-51.0); Hemoglobin 7.2 gm/dL (13.0-17.0); Lymph # (Auto) 0.7 th/mm3 (1.0-4.8); Mean Corpuscular HGB Conc 33.1 % (32.0-36.0); Mean Corpuscular Hemoglobin 26.2 pg (27.0-34.0); Mean Corpuscular Volume 79.1 fL (80.0-100.0); Mean Platelet Volume 7.6 fL (7.0-11.0); Mono # (Auto) 0.3 th/mm3 (0.0-0.9); Mono % (Auto) 9.8 % (0.0-8.0); Neut # (Auto) 2.3 th/mm3 (1.8-7.7); Neut % (Auto) 66.9 % (16.0-70.0); Platelet Count 110 th/mm3 (150-450); Red Blood Count 2.73 mil/mm3 (4.50-5.90); Red Cell Distribution Width 16.4 % (11.6-17.2); White Blood Count 3.4 th/mm3 (4.0-11.0)
[2018-01-06 06:20] LABS: INR 2.1 Ratio; Prothrombin Time 21.6 sec (9.8-11.6)
[2018-01-06 06:42] LABS: Albumin 2.2 g/dL (3.4-5.0); Carbon Dioxide 27.3 meq/L (21.0-32.0); Free T4 (Free Thyroxine) 1.79 ng/dL (0.76-1.46); Magnesium 1.7 mg/dL (1.5-2.5); Phosphorus 3.5 mg/dL (2.5-4.9); Potassium 3.6 meq/L (3.5-5.1); Thyroid Stimulating Hormone 0.681 uIU/mL (0.358-3.740); Total Protein 5.1 g/dL (6.4-8.2)
[2018-01-06] MEDS: Furosemide 40 MG Tablet PO SCH (09:26)
[2018-01-06] MEDS: Senna/Docusate Sodium 8.6/50 MG Tablet PO SCH (09:27)
[2018-01-06 15:55] LABS: Hematocrit 22.3 % (39.0-51.0); Hemoglobin 7.5 gm/dL (13.0-17.0)
--- NOTE | 2018-01-06 16:09 | P.DS ---
Date of admission: 01/03/18 15:31 Primary care physician: Jose Manuel Bailey Attending physician on discharge: Mary Kelly Anticipated date of discharge: 01/06/18 Brief History from admission: This is a 72-year-old male. Date of admission 01/03/2018. Past medical history includes atrial fibrillation on chronic warfarin, hypertension, hyperlipidemia, prostate cancer. Patient also has significant bilateral lower extremity edema on furosemide. Patient presented to [facility] with progressive weakness. Patient has had dark stools. Denies any aspirin, NSAID or steroid use. Denies abdominal pain. Patient a colonoscopy 2 years ago which revealed only polyps. Internal hemorrhoids. At this facility, patient was noted have a hemoglobin of 4.4. INR of 6.5. Patient received phytonadione and 2 units PRBCs. Recheck later this evening after receiving furosemide and readdress. Denies chest pain. Positive shortness of breath. Positive orthostatics. Patient update on day of discharge: Patient is currently doing well. Denies any chest pain, shortness of breath, fever or chills. He had bowel movement yesterday and did not notice any dark stool. DS: Medications - Discharge Medications Prescriptions: apixaban 5 mg PO BID #60 tab pantoprazole [Protonix] 40 mg PO DAILY #30 tab DS: Summary Hospital Course: Mr. Linares is a pleasant 72-year-old male with a history of atrial fibrillation on warfarin, hypertension, hyperlipidemia, prostate cancer who was admitted to the hospital on 01/03/2018 due to progressive weakness and dark stool. His hemoglobin was found to be 4.4 and INR is 6.5. Patient was given vitamin K as well as 2 units of PRBCs. Patient underwent EGD which showed a large pyloric ulcer. Postprocedure, patient continued to do well. He was tolerating liquid diet. He did not have any subsequent dark stool. He was on IV Protonix. On the day of discharge 01/06/2018, after evaluating patient, we advised patient to advance diet and if he tolerates advance diet well he can go home this early evening. I discussed with GI regarding restarting anticoagulation without any need to wait. Due to relative higher risk of bleed , it would be preferable to put patient on 1 of the newer medications such as apixaban. Patient agrees. We will start patient on apixaban and discontinue warfarin. Patient is advised to start apixaban tomorrow. Patient will follow- up with his hand meat salter. We checked his hemoglobin on the day of discharge and it was 7.5. His hemoglobin this morning was 7.2. - Time Spent with Patient Total time spent providing and/or coordinating discharge services: Less than 30 minutes - Quality: VTE Deep Vein Thrombosis/Pulmonary Embolism Present on Admission: Yes Exam Vital signs: Vital Signs 01/05/18 18:25 01/05/18 20:00 01/05/18 23:03 Temperature 97.4 F L 97.9 F 98.0 F Pulse Rate 65 69 65 Respiratory Rate 18 20 18 Blood Pressure 135/58 L 148/63 H 124/51 L Pulse Oximetry 98 98 97 01/06/18 00:06 01/06/18 03:46 01/06/18 04:35 Temperature 97.5 F L Pulse Rate 67 65 65 Respiratory Rate 20 15 20 Blood Pressure 120/56 L Pulse Oximetry 96 97 01/06/18 07:27 01/06/18 08:00 01/06/18 08:04 Temperature 97.9 F Pulse Rate 67 67 78 Respiratory Rate 18 18 Blood Pressure 110/56 L Pulse Oximetry 95 94 L 01/06/18 11:39 01/06/18 12:00 01/06/18 15:31 Temperature 97.9 F Pulse Rate 66 67 68 Respiratory Rate 16 18 20 Blood Pressure 118/59 L Pulse Oximetry 94 L Intake & Output 01/05/18 01/06/18 01/06/18 18:59 06:59 18:59 Intake Total 680 / 680 960 / 960 Output Total 3175 / 3175 300 / 300 Balance -2495 / -2495 660 / 660 Intake: Oral 480 / 480 960 / 960 Anesthesia Amount 200 / 200 Output: Urine 3175 / 3175 300 / 300 Other: # Voids 10 Date of Last Bowel Movement 01/05/18 01/05/18 # Bowel Movements 1 0 Narrative: GENERAL: Alert, oriented x3, NAD. SKIN: Warm and dry. HEAD: Normocephalic. EYES: No scleral icterus. No injection or drainage. NECK: Supple, trachea midline. No JVD or lymphadenopathy. CARDIOVASCULAR: Irreg Irreg without murmurs, gallops, or rubs. RESPIRATORY: Breath sounds equal bilaterally. No accessory muscle use. GASTROINTESTINAL: Abdomen soft, non-tender, nondistended. MUSCULOSKELETAL: No cyanosis. Lower extremity edema 1+. BACK: Nontender without obvious deformity. No CVA tenderness. Results Procedures completed during hospitalization: EGD PROCEDURE REPORT EXAM DATE: 01/05/2018 PATIENT NAME: Joseluis Linares MR #: [id number] BIRTHDATE: 1945 ATTENDING: Lary Garcia MD ORDER #: [id number] DEPLOYMENT ENGINEER: Ingrid Mistry and Jayla Hardy STATUS: inpatient INDICATIONS: The patient is a 72 yr old male here for an EGD due to melena PROCEDURE PERFORMED: EGD, diagnostic MEDICATIONS: Per Anesthesia and None. TOPICAL ANESTHETIC: none CONSENT: The patient understands the risks and benefits of the procedure and understands that these risks include, but are not limited to: sedation, allergic reaction, infection, perforation and/or bleeding. Alternative means of evaluation and treatment include, among others: physical exam, x-rays, and/or surgical intervention. The patient elects to proceed with this endoscopic procedure. medical equipment was checked for proper function. Hand hygiene and appropriate measures for infection prevention was taken. After the risks, benefits and alternatives of the procedure were thoroughly explained, Informed consent was verified, confirmed and timeout was successfully executed by the treatment team. The patient was anesthetized with topical anesthesia and the Pentax EG-[id number] endoscope was introduced through the mouth and advanced to the second portion of the duodenum. Retroflexion was performed and was normal The gastroscope was then slowly withdrawn and removed. ESOPHAGUS: The mucosa of the esophagus appeared normal. DUODENUM: The duodenal mucosa appeared normal. STOMACH: A large non-bleeding, round, deep and clean-based ulcer with surrounding edema was found at the pylorus. ADVERSE EVENTS: There were no complications. IMPRESSIONS: 1. Large ulcer was found at the pylorus 2. The esophagus appeared normal 3. Normal duodenal mucosa 4. Retroflexion was performed and was normal RECOMMENDATIONS: 1. Continue PPI 2. Follow-up of helicobacter pylori status, by stool antigen. PATIENT CONDITION: stable DISPOSITION: Observation REPEAT EXAM: Return 8 weeks EGD Lary Garcia MD eSigned: Lary Garcia MD 01/05/2018 3:22 PM Labs on day of discharge: Labs from last 24 hours 01/06/18 01/06/18 01/06/18 15:37 11:30 05:51 WBC RBC Hgb 7.5 L Hct 22.3 L MCV MCH MCHC RDW Plt Count MPV Neut % (Auto) Lymph % (Auto) [facility] % (Auto) Eos % (Auto) Baso % (Auto) Neut # (Auto) Lymph # (Auto) [facility] # (Auto) Eos # (Auto) Baso # (Auto) WBC Differential Differential Comment PT INR Sodium Potassium Chloride Carbon Dioxide Anion Gap BUN Creatinine Estimated GFR POC Glucose 115 H 103 Random Glucose Calcium Calcium Adj for Albumin Phosphorus Magnesium Total Bilirubin AST ALT Alkaline Phosphatase Ammonia Total Protein Albumin TSH Free T4 MTS Gel Crossmatch 01/06/18 01/06/18 01/06/18 05:49 05:49 05:49 WBC 3.4 L RBC 2.73 L Hgb 7.2 L Hct 21.6 L MCV 79.1 L MCH 26.2 L MCHC 33.1 RDW 16.4 Plt Count 110 L MPV 7.6 Neut % (Auto) 66.9 Lymph % (Auto) 20.0 [facility] % (Auto) 9.8 H Eos % (Auto) 2.5 Baso % (Auto) 0.8 Neut # (Auto) 2.3 Lymph # (Auto) 0.[address] # (Auto) 0.3 Eos # (Auto) 0.1 Baso # (Auto) 0.0 WBC Differential . Differential Comment Auto diff final PT INR Sodium 142 Potassium 3.6 Chloride 106 Carbon Dioxide 27.3 Anion Gap 9 BUN 12 Creatinine 1.08 Estimated GFR 67 L POC Glucose Random Glucose 85 Calcium 7.0 L* Calcium Adj for Albumin 8.1 L Phosphorus 3.5 Magnesium 1.7 Total Bilirubin 3.6 H AST 41 H ALT 28 Alkaline Phosphatase 62 Ammonia 51 H Total Protein 5.1 L Albumin 2.2 L TSH 0.681 Free T4 1.79 H MTS Gel Crossmatch 01/06/18 01/05/18 01/05/18 05:49 22:53 21:13 WBC RBC Hgb Hct MCV MCH MCHC RDW Plt Count MPV Neut % (Auto) Lymph % (Auto) [facility] % (Auto) Eos % (Auto) Baso % (Auto) Neut # (Auto) Lymph # (Auto) [facility] # (Auto) Eos # (Auto) Baso # (Auto) WBC Differential Differential Comment PT 21.6 H INR 2.1 Sodium Potassium 3.4 L Chloride Carbon Dioxide Anion Gap BUN Creatinine Estimated GFR POC Glucose 168 H Random Glucose Calcium Calcium Adj for Albumin Phosphorus Magnesium Total Bilirubin AST ALT Alkaline Phosphatase Ammonia Total Protein Albumin TSH Free T4 MTS Gel Crossmatch 01/05/18 01/04/18 16:01 06:43 WBC RBC Hgb Hct MCV MCH MCHC RDW Plt Count MPV Neut % (Auto) Lymph % (Auto) [facility] [place] % (Auto) Eos % (Auto) Baso % (Auto) Neut # (Auto) Lymph # (Auto) [facility] [place] # (Auto) Eos # (Auto) Baso # (Auto) WBC Differential Differential Comment PT INR Sodium Potassium Chloride Carbon Dioxide Anion Gap BUN Creatinine Estimated GFR POC Glucose 100 Random Glucose Calcium Calcium Adj for Albumin Phosphorus Magnesium Total Bilirubin AST ALT Alkaline Phosphatase Ammonia Total Protein Albumin TSH Free T4 MTS Gel Crossmatch See Detail Discharge Plan - Discharge Disposition Patient Disposition: 01 Discharge Home - Discharge Condition Condition: Good - Discharge Order Discharge Orders: Discharge Order (Routine); Ordered 01/06/18 Ordered By: Mary Kelly - Discharge Details Anticipated Discharge Date: 01/06/18 Discharge Comment: Discharge at 6PM. Discharge IF Hgb > 7.2 and patient can tolerate diet. - Physicians Team Primary Care Provider: Jose Manuel Bailey Attending Provider: Mary Kelly Other Providers: Lary Garica MD
[2018-01-06 16:29] VITALS: BP 116/59; RESP 16; TEMP 98; O2SAT 99
[2018-01-06 16:32] VITALS: PULSE 70
--- NOTE | 2018-01-06 17:38 | P.PNGI ---
Subjective Interval history: Patient resting comfortably Denies any noted bleeding Post EGD <Davis,Patty - Last Filed: 01/06/18 17:34> Physical Exam Vital signs: Vital Signs 01/05/18 18:25 01/05/18 20:00 01/05/18 23:03 Temperature 97.4 F L 97.9 F 98.0 F Pulse Rate 65 69 65 Respiratory Rate 18 20 18 Blood Pressure 135/58 L 148/63 H 124/51 L Pulse Oximetry 98 98 97 01/06/18 00:06 01/06/18 03:46 01/06/18 04:35 Temperature 97.5 F L Pulse Rate 67 65 65 Respiratory Rate 20 15 20 Blood Pressure 120/56 L Pulse Oximetry 96 97 01/06/18 07:27 01/06/18 08:00 01/06/18 08:04 Temperature 97.9 F Pulse Rate 67 67 78 Respiratory Rate 18 18 Blood Pressure 110/56 L Pulse Oximetry 95 94 L 01/06/18 11:39 01/06/18 12:00 01/06/18 15:31 Temperature 97.9 F Pulse Rate 66 67 68 Respiratory Rate 16 18 20 Blood Pressure 118/59 L Pulse Oximetry 94 L 01/06/18 16:00 Temperature 98 F Pulse Rate 70 Respiratory Rate 16 Blood Pressure 116/59 L Pulse Oximetry 99 Intake & Output 01/05/18 01/06/18 01/06/18 18:59 06:59 18:59 Intake Total 680 / 680 960 / 960 960 / 960 Output Total 3175 / 3175 300 / 300 1300 / 1300 Balance -2495 / -2495 660 / 660 -340 / -340 Intake: Oral 480 / 480 960 / 960 960 / 960 Anesthesia Amount 200 / 200 Output: Urine 3175 / 3175 300 / 300 1300 / 1300 Other: # Voids 10 Date of Last Bowel Movement 01/05/18 01/05/18 # Bowel Movements 1 0 0 - Constitutional no acute distress - Routine Respiratory Exam Present: CTA bilaterally - Routine Abdominal Exam Present: soft, normoactive bowel sounds. Absent: tenderness, guarding, firm - Routine Skin Exam Present: dry, warm - Routine Neurological Exam Present: alert <RyanPatty - Last Filed: 01/06/18 17:34> Vital signs: Vital Signs 01/05/18 23:03 11/29/18 00:06 01/06/18 03:46 Temperature 98.0 F Pulse Rate 65 67 65 Respiratory Rate 18 20 15 Blood Pressure 124/51 L Pulse Oximetry 97 96 01/06/18 04:35 01/06/18 07:27 01/06/18 08:00 Temperature 97.5 F L 97.9 F Pulse Rate 65 67 67 Respiratory Rate 20 18 Blood Pressure 120/56 L 110/56 L Pulse Oximetry 97 95 01/06/18 08:04 01/06/18 11:39 01/06/18 12:00 Temperature 97.9 F Pulse Rate 78 66 67 Respiratory Rate 18 16 18 Blood Pressure 118/59 L Pulse Oximetry 94 L 94 L 01/06/18 15:31 01/06/18 16:00 Temperature 98 F Pulse Rate 68 70 Respiratory Rate 20 16 Blood Pressure 116/59 L Pulse Oximetry 99 Intake & Output 01/06/18 01/06/18 01/07/18 06:59 18:59 06:59 Intake Total 960 / 960 960 / 960 Output Total 300 / 300 1300 / 1300 Balance 660 / 660 -340 / -340 Intake: Oral 960 / 960 960 / 960 Output: Urine 300 / 300 1300 / 1300 Other: Date of Last Bowel Movement 01/05/18 # Bowel Movements 0 0 <Lary Garcia A - Last Filed: 01/06/18 20:55> Results - Labs CBC & Chem 7: 01/06/18 15:37 01/06/18 05:49 Laboratory Results - last 24 hr 01/04/18 01/05/18 01/05/18 06:43 21:13 22:53 WBC RBC Hgb Hct MCV MCH MCHC RDW Plt Count MPV Neut % (Auto) Lymph % (Auto) Branch % (Auto) Eos % (Auto) Baso % (Auto) Neut # (Auto) Lymph # (Auto) Branch # (Auto) Eos # (Auto) Baso # (Auto) WBC Differential Differential Comment PT INR Sodium Potassium 3.4 L Chloride Carbon Dioxide Anion Gap BUN Creatinine Estimated GFR POC Glucose 168 H Random Glucose Calcium Calcium Adj for Albumin Phosphorus Magnesium Total Bilirubin AST ALT Alkaline Phosphatase Ammonia Total Protein Albumin TSH Free T4 MTS Gel Crossmatch See Detail 01/06/18 01/06/18 01/06/18 05:49 05:49 05:49 WBC 3.4 L RBC 2.73 L Hgb 7.2 L Hct 21.6 L MCV 79.1 L MCH 26.2 L MCHC 33.1 RDW 16.4 Plt Count 110 L MPV 7.6 Neut % (Auto) 66.9 Lymph % (Auto) 20.0 Branch % (Auto) 9.8 H Eos % (Auto) 2.5 Baso % (Auto) 0.8 Neut # (Auto) 2.3 Lymph # (Auto) 0.7 L Branch # (Auto) 0.3 Eos # (Auto) 0.1 Baso # (Auto) 0.0 WBC Differential . Differential Comment Auto diff final PT 21.6 H INR 2.1 Sodium 142 Potassium 3.6 Chloride 106 Carbon Dioxide 27.3 Anion Gap 9 BUN 12 Creatinine 1.08 Estimated GFR 67 L POC Glucose Random Glucose 85 Calcium 7.0 L* Calcium Adj for Albumin 8.1 L Phosphorus 3.5 Magnesium 1.7 Total Bilirubin 3.6 H AST 41 H ALT 28 Alkaline Phosphatase 62 Ammonia Total Protein 5.1 L Albumin 2.2 L TSH 0.681 Free T4 1.79 H MTS Gel Crossmatch 01/06/18 01/06/18 01/06/18 05:49 05:51 11:30 WBC RBC Hgb Hct MCV MCH MCHC RDW Plt Count MPV Neut % (Auto) Lymph % (Auto) Branch % (Auto) Eos % (Auto) Baso % (Auto) Neut # (Auto) Lymph # (Auto) Branch # (Auto) Eos # (Auto) Baso # (Auto) WBC Differential Differential Comment PT INR Sodium Potassium Chloride Carbon Dioxide Anion Gap BUN Creatinine Estimated GFR POC Glucose 103 115 H Random Glucose Calcium Calcium Adj for Albumin Phosphorus Magnesium Total Bilirubin AST ALT Alkaline Phosphatase Ammonia 51 H Total Protein Albumin TSH Free T4 MTS Gel Crossmatch 01/06/18 01/06/18 15:37 16:57 WBC RBC Hgb 7.5 L Hct 22.3 L MCV MCH MCHC RDW Plt Count MPV Neut % (Auto) Lymph % (Auto) Branch % (Auto) Eos % (Auto) Baso % (Auto) Neut # (Auto) Lymph # (Auto) Branch # (Auto) Eos # (Auto) Baso # (Auto) WBC Differential Differential Comment PT INR Sodium Potassium Chloride Carbon Dioxide Anion Gap BUN Creatinine Estimated GFR POC Glucose 128 H Random Glucose Calcium Calcium Adj for Albumin Phosphorus Magnesium Total Bilirubin AST ALT Alkaline Phosphatase Ammonia Total Protein Albumin TSH Free T4 MTS Gel Crossmatch - Procedures EGD PROCEDURE REPORT EXAM DATE: 01/05/2018 PATIENT NAME: Joseluis Linares MR #: [id number] BIRTHDATE: 1945 ATTENDING: Lary Garcia MD ORDER #: [id number] OUTPATIENT PHYSICAL THERAPIST: Ingrid Mistry and Jayla Hardy STATUS: inpatient INDICATIONS: The patient is a 72 yr old male here for an EGD due to melena PROCEDURE PERFORMED: EGD, diagnostic MEDICATIONS: Per Anesthesia and None. TOPICAL ANESTHETIC: none CONSENT: The patient understands the risks and benefits of the procedure and understands that these risks include, but are not limited to: sedation, allergic reaction, infection, perforation and/or bleeding. Alternative means of evaluation and treatment include, among others: physical exam, x-rays, and/or surgical intervention. The patient elects to proceed with this endoscopic procedure. medical equipment was checked for proper function. Hand hygiene and appropriate measures for infection prevention was taken. After the risks, benefits and alternatives of the procedure were thoroughly explained, Informed consent was verified, confirmed and timeout was successfully executed by the treatment team. The patient was anesthetized with topical anesthesia and the Pentax EG-[id number] endoscope was introduced through the mouth and advanced to the second portion of the duodenum. Retroflexion was performed and was normal The gastroscope was then slowly withdrawn and removed. ESOPHAGUS: The mucosa of the esophagus appeared normal. DUODENUM: The duodenal mucosa appeared normal. STOMACH: A large non-bleeding, round, deep and clean-based ulcer with surrounding edema was found at the pylorus. ADVERSE EVENTS: There were no complications. IMPRESSIONS: 1. Large ulcer was found at the pylorus 2. The esophagus appeared normal 3. Normal duodenal mucosa 4. Retroflexion was performed and was normal RECOMMENDATIONS: 1. Continue PPI 2. Follow-up of helicobacter pylori status, by stool antigen. PATIENT CONDITION: stable DISPOSITION: Observation REPEAT EXAM: Return 8 weeks EGD Lary Garcia MD eSigned: Lary Garcia MD 01/05/2018 3:22 PM <Patty Davis - Last Filed: 01/06/18 17:34> - Labs CBC & Chem 7: 01/06/18 15:37 01/06/18 05:49 Laboratory Results - last 24 hr 01/04/18 01/05/18 01/05/18 06:43 21:13 22:53 WBC RBC Hgb Hct MCV MCH MCHC RDW Plt Count MPV Neut % (Auto) Lymph % (Auto) Branch % (Auto) Eos % (Auto) Baso % (Auto) Neut # (Auto) Lymph # (Auto) Branch # (Auto) Eos # (Auto) Baso # (Auto) WBC Differential Differential Comment PT INR Sodium Potassium 3.4 L Chloride Carbon Dioxide Anion Gap BUN Creatinine Estimated GFR POC Glucose 168 H Random Glucose Calcium Calcium Adj for Albumin Phosphorus Magnesium Total Bilirubin AST ALT Alkaline Phosphatase Ammonia Total Protein Albumin TSH Free T4 MTS Gel Crossmatch See Detail 01/06/18 01/06/18 01/06/18 05:49 05:49 05:49 WBC 3.4 L RBC 2.73 L Hgb 7.2 L Hct 21.6 L MCV 79.1 L MCH 26.2 L MCHC 33.1 RDW 16.4 Plt Count 110 L MPV 7.6 Neut % (Auto) 66.9 Lymph % (Auto) 20.0 Branch % (Auto) 9.8 H Eos % (Auto) 2.5 Baso % (Auto) 0.8 Neut # (Auto) 2.3 Lymph # (Auto) 0.7 L Branch # (Auto) 0.3 Eos # (Auto) 0.1 Baso # (Auto) 0.0 WBC Differential . Differential Comment Auto diff final PT 21.6 H INR 2.1 Sodium 142 Potassium 3.6 Chloride 106 Carbon Dioxide 27.3 Anion Gap 9 BUN 12 Creatinine 1.08 Estimated GFR 67 L POC Glucose Random Glucose 85 Calcium 7.0 L* Calcium Adj for Albumin 8.1 L Phosphorus 3.5 Magnesium 1.7 Total Bilirubin 3.6 H AST 41 H ALT 28 Alkaline Phosphatase 62 Ammonia Total Protein 5.1 L Albumin 2.2 L TSH 0.681 Free T4 1.79 H MTS Gel Crossmatch 01/06/18 01/06/18 01/06/18 05:49 05:51 11:30 WBC RBC Hgb Hct MCV MCH MCHC RDW Plt Count MPV Neut % (Auto) Lymph % (Auto) Branch % (Auto) Eos % (Auto) Baso % (Auto) Neut # (Auto) Lymph # (Auto) Branch # (Auto) Eos # (Auto) Baso # (Auto) WBC Differential Differential Comment PT INR Sodium Potassium Chloride Carbon Dioxide Anion Gap BUN Creatinine Estimated GFR POC Glucose 103 115 H Random Glucose Calcium Calcium Adj for Albumin Phosphorus Magnesium Total Bilirubin AST ALT Alkaline Phosphatase Ammonia 51 H Total Protein Albumin TSH Free T4 MTS Gel Crossmatch 01/06/18 01/06/18 15:37 16:57 WBC RBC Hgb 7.5 L Hct 22.3 L MCV MCH MCHC RDW Plt Count MPV Neut % (Auto) Lymph % (Auto) Branch % (Auto) Eos % (Auto) Baso % (Auto) Neut # (Auto) Lymph # (Auto) Branch # (Auto) Eos # (Auto) Baso # (Auto) WBC Differential Differential Comment PT INR Sodium Potassium Chloride Carbon Dioxide Anion Gap BUN Creatinine Estimated GFR POC Glucose 128 H Random Glucose Calcium Calcium Adj for Albumin Phosphorus Magnesium Total Bilirubin AST ALT Alkaline Phosphatase Ammonia Total Protein Albumin TSH Free T4 MTS Gel Crossmatch <Lary Garcia - Last Filed: 01/06/18 20:55> Assessment and Plan (1) GI bleed Status: Acute Code(s): K92.2 - Gastrointestinal hemorrhage, unspecified - Plan Patient is a 72-year-old male who presented to the emergency room at [facility] on 01/03/2018. Past medical history includes atrial fibrillation on warfarin-, hypertension, hyperlipidemia, prostate cancer. Patient also has significant history of bilateral lower extremity edema-on furosemide. Upon consultation, patient endorsed that he presented to [facility] with complaint of shortness of breath and generalized weakness. Patient states that he noticed dark stools for the last 2-3 weeks. He denies any use of aspirin or NSAIDs. Upon admission, hemoglobin 4 and stool was guaiac positive. Patient denies any abdominal pain nausea or vomiting. Reports he had a colonoscopy done 3 years ago that showed polyps which were benign. He endorses a history of hemorrhoids and denies ever having had an EGD in the past. Patient denies any difficulty swallowing, painful swallowing or heartburn. Patient denies any symptoms of acid reflux. Patient states his last dose of Coumadin was 2017 and his prescribed dose is 3 mg p.o. daily; and 1.5 mg p.o. every Wednesday. Patient states family history significant for his father having colon cancer. Patient denies any tobacco use states he stopped smoking 25 years ago and reports EtOH use socially with an occasional beer or glass of wine. Our service has been consulted to evaluate patient for GI bleed and guaiac positive stool GI bleed Patient presents with 2-3-week history of dark stools. Presented to the emergency room at [facility] with complaint of generalized weakness. History of atrial fibrillation on warfarin. Coumadin toxicity noted on admission INR 6.5. Patient transfused with 2 units of FFP and 6 units of packed RBCs for hemoglobin of 4. 01/04/2018 hemoglobin 5.9 hematocrit 18.1 INR 3.2 01/06/2018 GI bleed No BM today Patient denies abdominal pain no or any noted bleeding Hemoglobin 7.5 hematocrit 22.3 01/05/2018 EGD-- 1. Large ulcer was found at the pylorus 2. The esophagus appeared normal 3. Normal duodenal mucosa 4. Retroflexion was performed and was normal Plan -Cardiac diet -Monitor for bleeding -Transfuse if needed -Protonix daily -Follow-up H pylori status by stool antigen -Recommended repeat EGD in 8 weeks -Avoid anticoagulants and NSAIDs unless otherwise directed -Supportive care -Patient to follow-up with advanced GI in 1 week post discharge This patient has been seen by myself and Dr. Garcia and this note is written on his behalf - Attending Attestation Dr. Garcia <Patty Davis - Last Filed: 01/06/18 17:34> (1) GI bleed Status: Acute Code(s): K92.2 - Gastrointestinal hemorrhage, unspecified - Attending Attestation Agree with the plan as above. Resume anticoagulant and schedule EGD after 8 weeks. Please notify us if needed again. <Lary Garcia - Last Filed: 01/06/18 20:55>
== END 2018-01-06 20:17 | disposition home or self-care (01) ==
LOC: NEPC 13:46 → NEDA 15:31 → HIMC 17:50 → N04 01-05 18:20
PROVIDERS: ADMIT Hospitalist; ATTEND Hospitalist
PROC: PANENDO (2018-01-05 14:00)

== ENCOUNTER 2018-01-21 11:15 | Inpatient (IN) ==
[2018-01-21] MEDS ORDERED: Pantoprazole Inj 80 MG in Sodium Chlor 0.9% Inj 35 ML IV.SIG ONE (11:44)
--- NOTE | 2018-01-21 11:49 | ED ---
HPI General Chief complaint: Weakness Stated complaint: Abnormal Labs/Doctor Sent Time Seen by Provider: 01/21/18 11:35 History of Present Illness HPI narrative: This is a 73-year-old male with history of atrial fibrillation, hypertension, hyperlipidemia, prostate cancer, sent for evaluation of low hemoglobin. He reports that he had outpatient lab work performed yesterday. He was called by his primary care physician, Dr. lopez, and told that his hemoglobin was in the 5 range and he was referred here for further evaluation. He does report that he has been feeling some dizziness over the past few days. He was admitted in late December for evaluation of symptomatic anemia. He had an endoscopy which revealed a pyloric ulcer. Initially he was on Coumadin however this was changed to Eliquis during his hospital stay. He reports that he has had some dark stools with some dark red blood noted in it. He denies chest pain, shortness of breath, nausea, vomiting, abdominal pain. Symptoms are moderate. No other complaints. Related Data Home Medications Medication Instructions Recorded Confirmed atorvastatin 40 mg PO HS 01/03/18 01/21/18 carvedilol 12.5 mg PO BID 01/03/18 01/21/18 furosemide [Lasix] 40 mg PO DAILY 01/03/18 01/21/18 hydrocodone-acetaminophen [[place]] 1 tab PO BID PRN 01/03/18 01/21/18 potassium chloride 20 meq PO DAILY 01/03/18 01/21/18 Previous Rx's Medication Instructions Recorded apixaban 5 mg PO BID #60 tab 01/06/18 pantoprazole [Protonix] 40 mg PO DAILY #30 tab 01/06/18 Allergies Allergy/AdvReac Type Severity Reaction Status Date / Time No Known Allergies Allergy Verified 01/21/18 11:21 Review of Systems ROS: all other systems reviewed are negative PMFSH Family History Family History Mother Family history of CVA Father Family history of atrial fibrillation Grandparent No problems noted. Social History Social History Substance History: No History of Abuse Second Hand Smoke Exposure: No Smoking Status: Former smoker Tobacco Type: Cigars How Often Do You Have a Drink Containing Alcohol: 4 or more times a week Recent Travel in [facility] within the Last 8 Weeks: No Recent Out of Country Travel within the Last 8 Weeks: No Immunization History Tetanus Immunization: <5 Years Exam Narrative Exam Narrative: GENERAL: Well developed well-nourished male in no acute distress SKIN: Pale. HEAD: Atraumatic. Normocephalic. EYES: Pupils equal and round. No scleral icterus. No injection or drainage. ENT: No nasal bleeding or discharge. Mucous membranes pink and moist. NECK: Trachea midline. No JVD. CARDIOVASCULAR: Regular rate and rhythm. No murmur appreciated. RESPIRATORY: No accessory muscle use. Clear to auscultation. Breath sounds equal bilaterally. GASTROINTESTINAL: Abdomen soft, non-tender, nondistended. Hepatic and splenic margins not palpable. Rectal examination reveals maroon colored stool which is Hemoccult positive. MUSCULOSKELETAL: No obvious deformities. No clubbing. No cyanosis. No edema. NEUROLOGICAL: Awake and alert. No obvious cranial nerve deficits. Motor grossly within normal limits. Normal speech. Course Initial Documented Vital Signs Temperature 97.7 F 01/21/18 11:19 Pulse Rate 71 01/21/18 11:19 Respiratory Rate 18 01/21/18 11:19 Blood Pressure 112/51 L 01/21/18 11:19 Pulse Oximetry 99 01/21/18 11:19 Last Documented Vital Signs Temperature 97.9 F 01/21/18 13:45 Pulse Rate 62 01/21/18 13:45 Respiratory Rate 16 01/21/18 13:45 Blood Pressure 112/54 L 01/21/18 13:45 Pulse Oximetry 99 01/21/18 13:45 Medical Decision Making DAKOTA Attestation DAKOTA supervised visit: Yes Attestation: I, Dr. Cotton, have reviewed the advance practice practitioner's documentation and am in agreement, met with the patient face to face, made the diagnosis, and the medical decision making was done by me. See his note for further details. This is a 73-year-old male with history of A. fib on Eliquis, CHF, recent hospital admission for GI bleed, found to have a large pyloric ulcer, required blood transfusion, discharged 2 weeks ago, had basic labs done yesterday by his primary care physician and was found to be significantly anemic. The patient has had worsening weakness and fatigue over the last week or so. He also complains of worsening bilateral lower extremity edema and scrotal edema. He has had a slight nonproductive cough. No hemoptysis. No chest pain. Vital signs are within normal limits. On my exam the patient is resting comfortably. He does have significant bilateral lower extremity edema. Lung sounds are clear and equal bilaterally. He has diffuse pallor. CBC shows anemia with an H &H of 5.8/17. Patient has maroon colored stool noted by the DAKOTA involved in the case. The patient was made aware of all findings. I consented him for blood transfusion. He will be given 2 units of PRBCs. GI will be contacted regarding the patient's care. Of note the patient was switched from warfarin to Eliquis during his last admission due to poorly controlled INR. Recommendations for reversal will be set up by GI or hematology. Currently the patient is hemodynamically stable. MDM Narrative Medical decision making narrative: The patient was placed on ECG monitoring pulse oximetry. A rectal examination was performed revealing maroon colored stools Hemoccult positive. Protonix bolus/drip initiated. Lab work was obtained. Lab work reveals a hemoglobin of 5.8. 2 units packed red blood cells ordered. An EKG was obtained revealing sinus rhythm with a rate in the 60s. Given the patient's symptomatic anemia, hypocoagulopathy, I discussed with the on-call gas plant repairer Dr. Lerma in regards to the possible need for reversal of eliquis and he recommends not reversing the blood thinner at this time. He would like ferritin and iron profile levels obtained prior to blood transfusion. These were added onto the initial blood work that was sent to the lab. GI has also been paged. He was also given Lasix as he has edema in the lower extremities. The patient will be admitted for further treatment. Medical Screen Exam Complete: Yes Emergency Medical Condition: Yes Differential Diagnosis Differential Diagnosis: GI bleed, symptomatic anemia, hypo-coagulopathy Lab Data Result diagrams: 01/21/18 11:58 01/21/18 11:58 Lab Results 01/21/18 01/21/18 01/21/18 Range/Units 11:58 11:58 11:58 WBC 2.8 L (4.0-11.0) th/mm3 RBC 2.09 L (4.50-5.90) mil/mm3 Hgb 5.8 L* (13.0-17.0) gm/dL Hct 17.8 L* (39.0-51.0) % MCV 85.0 (80.0-100.0) fL MCH 27.5 (27.0-34.0) pg MCHC 32.3 (32.0-36.0) % RDW 23.1 H (11.6-17.2) % Plt Count 141 L (150-450) th/mm3 MPV 8.4 (7.0-11.0) fL Prelim Diff (Auto) [employer] Services Program Specialist Neut % (Auto) 60.1 (16.0-70.0) % Lymph % (Auto) 22.2 (9.0-44.0) % Swisher % (Auto) 13.8 H (0.0-8.0) % Eos % (Auto) 2.6 (0.0-4.0) % Baso % (Auto) 1.3 (0.0-2.0) % Neut # (Auto) 1.7 L (1.8-7.7) th/mm3 Lymph # (Auto) 0.6 L (1.0-4.8) th/mm3 Swisher # (Auto) 0.4 (0.0-0.9) th/mm3 Eos # (Auto) 0.1 (0.0-0.4) th/mm3 Baso # (Auto) 0.0 (0.0-0.2) th/mm3 WBC Differential . Differential Comment Auto diff final PT 24.9 H (9.8-11.6) sec INR 2.5 Ratio APTT 36.6 H (23.4-31.7) sec Sodium 140 (136-145) meq/L Potassium 3.3 L (3.5-5.1) meq/L Chloride 101 (98-107) meq/L Carbon Dioxide 30.6 (21.0-32.0) meq/L Anion Gap 8 (5-15) meq/L BUN 20 H (7-18) mg/dL Creatinine 1.42 H (0.60-1.30) mg/dL Estimated GFR 49 L (>89) mL/min Random Glucose 154 H (74-106) mg/dL Calcium 7.3 L* (8.5-10.1) mg/dL Calcium Adj for Albumin 8.6 (8.5-10.1) mg/dL Magnesium 1.6 (1.5-2.5) mg/dL Iron (65-175) mcg/dL TIBC (250-450) mcg/dL % Saturation (20-50) % Ferritin (26-388) ng/mL Total Bilirubin 2.3 H (0.2-1.0) mg/dL AST 49 H (15-37) U/L ALT 32 (12-78) U/L Alkaline Phosphatase 75 (45-117) U/L Total Protein 5.5 L (6.4-8.2) g/dL Albumin 2.4 L (3.4-5.0) g/dL Blood Type Antibody Screen MTS Gel Crossmatch 01/21/18 01/21/18 01/21/18 Range/Units 11:58 11:58 12:47 WBC (4.0-11.0) th/mm3 RBC (4.50-5.90) mil/mm3 Hgb (13.0-17.0) gm/dL Hct (39.0-51.0) % MCV (80.0-100.0) fL MCH (27.0-34.0) pg MCHC (32.0-36.0) % RDW (11.6-17.2) % Plt Count (150-450) th/mm3 MPV (7.0-11.0) fL Prelim Diff (Auto) Neut % (Auto) (16.0-70.0) % Lymph % (Auto) (9.0-44.0) % Swisher % (Auto) (0.0-8.0) % Eos % (Auto) (0.0-4.0) % Baso % (Auto) (0.0-2.0) % Neut # (Auto) (1.8-7.7) th/mm3 Lymph # (Auto) (1.0-4.8) th/mm3 Swisher # (Auto) (0.0-0.9) th/mm3 Eos # (Auto) (0.0-0.4) th/mm3 Baso # (Auto) (0.0-0.2) th/mm3 WBC Differential Differential Comment PT (9.8-11.6) sec INR Ratio APTT (23.4-31.7) sec Sodium (136-145) meq/L Potassium (3.5-5.1) meq/L Chloride (98-107) meq/L Carbon Dioxide (21.0-32.0) meq/L Anion Gap (5-15) meq/L BUN (7-18) mg/dL Creatinine (0.60-1.30) mg/dL Estimated GFR (>89) mL/min Random Glucose (74-106) mg/dL Calcium (8.5-10.1) mg/dL Calcium Adj for Albumin (8.5-10.1) mg/dL Magnesium (1.5-2.5) mg/dL Iron 31 L (65-175) mcg/dL TIBC 424 (250-450) mcg/dL % Saturation 7.3 L (20-50) % Ferritin 12 L (26-388) ng/mL Total Bilirubin (0.2-1.0) mg/dL AST (15-37) U/L ALT (12-78) U/L Alkaline Phosphatase (45-117) U/L Total Protein (6.4-8.2) g/dL Albumin (3.4-5.0) g/dL Blood Type AB Positive Antibody Screen Negative MTS Gel Crossmatch See Detail Imaging Data Radiologist's impression: Chest X-Ray 01/21/18 12:54 CONCLUSION: Negative for acute process Discharge Plan Discharge Disposition Patient Disposition: ED Admit(ED Internal Use Only) Discharge Condition Condition: Stable Discharge Order Discharge Orders: ED Use Only Admit Order (Routine); Ordered 01/21/18 Ordered By: Sim Marin Discharge Details Diagnosis: GI bleed, Symptomatic anemia Physicians Team ED Provider: Kiran Cotton ED Midlevel Provider: Sim Marin Primary Care Provider: Jose Manuel Bailey Rxs /Orders / Referrals /Forms Prescriptions: No Action furosemide [Lasix] 40 mg Tablet 40 mg PO DAILY RF: 0 atorvastatin 40 mg Tablet 40 mg PO HS RF: 0 potassium chloride 10 mEq Capsule, Extended Release 20 meq PO DAILY RF: 0 carvedilol 12.5 mg Tablet 12.5 mg PO BID RF: 0 hydrocodone-acetaminophen [[place]] 10-325 mg Tablet 1 tab PO BID PRN (Reason: Pain) RF: 0 pantoprazole [Protonix] 40 mg Tablet,Delayed Release (Dr/Ec) 40 mg PO DAILY Qty: 30 RF: 11 apixaban 5 mg Tablet 5 mg PO BID Qty: 60 RF: 5 Status ED Status: With Doctor
[2018-01-21] MEDS: Pantoprazole Inj 80 MG in Sodium Chlor 0.9% Inj 100 ML IV.CONT SCH (12:05)
[2018-01-21 12:26] LABS: Baso % (Auto) 1.3 % (0.0-2.0); Eos # (Auto) 0.1 th/mm3 (0.0-0.4); Eos % (Auto) 2.6 % (0.0-4.0); Lymph # (Auto) 0.6 th/mm3 (1.0-4.8); Lymph % (Auto) 22.2 % (9.0-44.0); Mean Corpuscular HGB Conc 32.3 % (32.0-36.0); Mean Corpuscular Hemoglobin 27.5 pg (27.0-34.0); Mean Platelet Volume 8.4 fL (7.0-11.0); Mono # (Auto) 0.4 th/mm3 (0.0-0.9); Mono % (Auto) 13.8 % (0.0-8.0); Neut # (Auto) 1.7 th/mm3 (1.8-7.7); Neut % (Auto) 60.1 % (16.0-70.0); Platelet Count 141 th/mm3 (150-450); Red Blood Count 2.09 mil/mm3 (4.50-5.90); Red Cell Distribution Width 23.1 % (11.6-17.2); White Blood Count 2.8 th/mm3 (4.0-11.0)
[2018-01-21 12:35] LABS: Hematocrit 17.8 % (39.0-51.0); Hemoglobin 5.8 gm/dL (13.0-17.0)
[2018-01-21 12:36] LABS: Activated Partial Thrombo Time 36.6 sec (23.4-31.7); INR 2.5 Ratio; Prothrombin Time 24.9 sec (9.8-11.6)
[2018-01-21 12:54] LABS: Albumin 2.4 g/dL (3.4-5.0); Calcium 7.3 mg/dL (8.5-10.1); Carbon Dioxide 30.6 meq/L (21.0-32.0); Magnesium 1.6 mg/dL (1.5-2.5); Potassium 3.3 meq/L (3.5-5.1); Total Protein 5.5 g/dL (6.4-8.2)
[2018-01-21] MEDS ORDERED: Sodium Chlor 0.9% Inj 250 ML IV.SIG SCH (13:00)
--- NOTE | 2018-01-21 13:33 | XR ---
EXAM DATE: 01/21/2018 1:25 PM EST AGE/SEX: 73 years / Male INDICATIONS: Sent by the dr for low hemoglobin CLINICAL DATA: This is the patient's initial encounter. Patient reports that signs and symptoms have been present for 2 days and indicates a pain score of 0/10. MEDICAL/SURGICAL HISTORY: . a-fib, CHF None. COMPARISON: No prior exams available for comparison. FINDINGS: A single AP view of the chest demonstrates the lungs to be symmetrically aerated without evidence of mass, infiltrate or effusion. The cardiomediastinal contours are unremarkable. Osseous structures a re intact. CONCLUSION: Negative for acute process Electronically signed by: Jose Manuel Conn MD Board Certified Radiologist 01/21/2018 1:32 PM EST
[2018-01-21 13:50] LABS: % Iron Saturation 7.3 % (20-50)
--- NOTE | 2018-01-21 14:23 | P.HPIM ---
History of Present Illness Primary Care Physician: Jose Manuel Bailey Chief Complaint: generalized weakness History of Present Illness: patient is a 73 y/o male with history of a-fib, on anticoagulation, hypertension, prostate cancer, dyslipidemia, who presented to ER with generalized weakness. he was recently admitted to this hospital for the same reason. he underwent EGD which showed an ulcer at [facility]. he was switched from Coumadin to Eliquis and the he was discharged home. he says that he felt fine for the fisrt few days but later on he started to feel weak again. he denies any abdominal pain, nausea, vomiting. he denies any chest pain, orthopnea. he says that few days ago he had some blood per rectum. he had mild dizziness the other day. Inpatient Certification Inpatient Certification: I certify that the inpatient services were ordered in accordance with Medicare regulations governing the order. This includes certification that hospital inpatient services are reasonable and necessary and in the case of services not specified as inpatient-only under 42 CFR 419.22(n), that they are appropriately provided as inpatient services in accordance to with the 2-midnight benchmark under 43 CFR 412.3(e) Estimated Total Length of Stay (Days): 2 Plans for Post Hospital Care: Home Review of Systems Review of Systems: all other systems reviewed are negative [facility] Medical History Medical History Atrial fibrillation (Acute) Cataract (Acute) HTN (hypertension) (Acute) Hemorrhoid (Acute) High cholesterol (Acute) Hx of radiation therapy (Acute) Prostate CA (Acute) Surgical History Surgical History H/O cardiac radiofrequency ablation (Acute) H/O knee surgery (Acute) Hx of tonsillectomy (Acute) Family History Family History Mother Family history of CVA Father Family history of atrial fibrillation Grandparent No problems noted. Social History Social History Substance History: No History of Abuse Second Hand Smoke Exposure: No Smoking Status: Former smoker Tobacco Type: Cigars How Often Do You Have a Drink Containing Alcohol: 4 or more times a week Recent Travel in [facility] within the Last 8 Weeks: No Recent Out of Country Travel within the Last 8 Weeks: No Immunization History Tetanus Immunization: <5 Years Medications and Allergies Allergies Allergy/AdvReac Type Severity Reaction Status Date / Time No Known Allergies Allergy Verified 01/21/18 11:21 Home Medications Medication Instructions Recorded Confirmed Type atorvastatin 40 mg PO HS 01/03/18 01/21/18 History carvedilol 12.5 mg PO BID 01/03/18 01/21/18 History furosemide [Lasix] 40 mg PO DAILY 01/03/18 01/21/18 History hydrocodone-acetaminophen [[place]] 1 tab PO BID PRN 01/03/18 01/21/18 History potassium chloride 20 meq PO DAILY 01/03/18 01/21/18 History Active Medications: Active Medications Pantoprazole Sodium 80 mg/ (Sodium Chloride) 100 mls @ 10 mls/hr IV.CONT CONT SCOTT Last Admin: 01/21/18 12:05 Dose: 10 mls/hr Sodium Chloride (Ns Inj) 250 mls @ 15 mls/hr IV.SIG ONCE SCOTT Stop: 01/22/18 05:39 Last Admin: 01/21/18 13:46 Dose: 15 mls/hr Sodium Chloride (Ns Flush) 2 ml IV.FLUSH PRN PRN PRN Reason: FLUSH AFTER USING IV ACCESS Physical Exam Vital signs: Last Vital Signs Temp 98.0 F 01/21/18 14:00 Pulse 61 01/21/18 14:00 Resp 17 01/21/18 14:00 BP 109/53 L 01/21/18 14:00 Pulse Ox 99 01/21/18 14:00 Intake & Output 01/19/18 01/20/18 01/21/18 01/22/18 06:59 06:59 06:59 06:59 Intake Total 35 / 35 Balance 35 / 35 Constitutional no acute distress Routine HEENT Exam Eye: Present PERRL Routine Neck Exam Present supple Routine Respiratory Exam Present CTA bilaterally Routine Cardiovascular Exam Present RRR Routine Abdominal Exam Present soft Routine Extremities Exam Comments: bilateral pedal edema. Routine Neurological Exam Present alert and oriented X3 Results Labs CBC & Chem 7: 01/21/18 11:58 01/21/18 11:58 Imaging Impressions Chest X-Ray 01/21/18 12:54 CONCLUSION: Negative for acute process Caprini VTE Risk Assessment Caprini VTE Risk Assessment: Moderate/High Risk (score >= 2) VTE Pharmacological Exception Reason: Active bleeding Caprini Risk Assessment Model: Point Value = 1 Point Value = 2 Point Value = 3 Point Value = 5 Age 41-60 Minor surgery BMI > 25 kg/m2 Swollen legs Varicose veins or History of unexplained or recurrent spontaneous Oral contraceptives or hormone replacement Sepsis (< 1 month) Serious lung disease, including pneumonia (< 1 month) Abnormal pulmonary function Acute myocardial infarction Congestive heart failure (< 1 month) History of inflammatory bowel disease Medical patient at bed rest Age 61-74 Arthroscopic surgery Major open surgery (> 45 min) Laparoscopic surgery (> 45 min) Malignancy Confined to bed (> 72 hours) Immobilizing plaster cast Central venous access Age >= 75 History of VTE Family history of VTE Factor V Leiden Prothrombin [id number] Lupus anticoagulant Anticardiolipin antibodies Elevated serum homocysteine Heparin-induced thrombocytopenia Other congenital or acquired thrombophilia Stroke (< 1 month) Elective arthroplasty Hip, pelvis, or leg fracture Acute spinal cord injury (< 1 month) Prophylaxis Regimen: Total Risk Factor Score Risk Level Prophylaxis Regimen 0-1 Low Early ambulation 2 Moderate Order ONE of the following: *Sequential Compression Device (SCD) *Heparin 5000 units SQ BID 3-4 Higher Order ONE of the following medications: *Heparin 5000 units SQ TID *Enoxaparin/Lovenox 40 mg SQ daily (WT < 150 kg, CrCl > 30 mL/min) *Enoxaparin/Lovenox 30 mg SQ daily (WT < 150 kg, CrCl > 10-29 mL/min) *Enoxaparin/Lovenox 30 mg SQ BID (WT < 150 kg, CrCl > 30 mL/min) AND/OR *Sequential Compression Device (SCD) 5 or more Highest Order ONE of the following medications: *Heparin 5000 units SQ TID (Preferred with Epidurals) *Enoxaparin/Lovenox 40 mg SQ daily (WT < 150 kg, CrCl > 30 mL/min) *Enoxaparin/Lovenox 30 mg SQ daily (WT < 150 kg, CrCl > 10-29 mL/min) *Enoxaparin/Lovenox 30 mg SQ BID (WT < 150 kg, CrCl > 30 mL/min) AND *Sequential Compression Device (SCD) Assessment and Plan Plan A/P - acute on chronic anemia due to recurrent GI bleed/ patient on anticoagulation- keep NPO- continue with PPI- will transfuse with PRBC with close monitoring of H/H- consult GI. of note had a recent EGD which revealed Pyloric ulcer. -a-fib; hold BB for now due to low-normal BP; will resume if BP remains stable- hold Eliquis due to GI bleed. patient was previously on Coumadin and this was switched to Eliquis last admission. -acute kidney injury; start on gentle IV fluid- monitor renal function. -hypokalemia; will replace and monitor. -hypertension; hold BP for now and continue to monitor. -prostate cancer; f/u as outpatient. -DVT prophylaxis with SCD's- no chemical prophylaxis due to GI bleed. Discussed Condition With: ER physician and the patient. Discharge Planning: home when stable- pending GI work-up.
[2018-01-21] MEDS: Potassium Chloride Inj 10 MEQ in Sodium Chloride 0.45 % Inj 1,000 ML IV.CONT SCH (17:08)
[2018-01-21 18:48] LABS: Hemoglobin 6.7 gm/dL (13.0-17.0)
[2018-01-21 18:55] LABS: Hematocrit 20.4 % (39.0-51.0)
--- NOTE | 2018-01-21 18:59 | P.CONGI ---
History of Present Illness Consult date: 01/21/18 Consult reason: GI bleed Anemia Chief complaint: GI Bleed, Symptomatic Anemia History of Present Illness: This patient is a 73-year-old male with past medical history significant for atrial fibrillation, hypertension, hyperlipidemia, prostate cancer and pyloric ulcer. Patient presented to [facility] for evaluation of abnormal lab work. Patient states lab work was performed yesterday as an outpatient and he was told to come to the hospital for further evaluation. Upon consultation, patient reports that he has had dark stools with some red blood noted in it for the past 2-3 days. Of note, patient is currently on Eliquis for atrial fibrillation. Patient denies any noted bleeding at this time. He denies chest pain shortness of breath, nausea vomiting or abdominal pain. Patient states that he drinks beer and wine daily and has noticed a yellow tinge to his eyes as well as bilateral lower extremity edema. Patient denies any use of NSAIDs. Our service has been consulted to evaluate patient for anemia and GI bleeding. Last EGD done 01/05/2018 revealed large ulcer at the pylorus. Review of Systems All other systems reviewed negative except as stated in HPI PMFSH - History History Provided By: Patient - Medical History Medical History: Medical History (Last Reviewed 01/21/18 @ 14:19 by Piedad Dey MD) Atrial fibrillation Cataract HTN (hypertension) Hemorrhoid High cholesterol Hx of radiation therapy Prostate CA - Surgical History Surgical History: Surgical History (Last Reviewed 01/21/18 @ 14:19 by Piedad Dey MD) H/O cardiac radiofrequency ablation H/O knee surgery Hx of tonsillectomy - Family History Family History: Family History (Last Reviewed 01/21/18 @ 14:19 by Piedad Dey MD) Mother Family history of CVA Father Family history of atrial fibrillation Grandparent No problems noted. - Tobacco History Second Hand Smoke Exposure: No Smoking Status: Former smoker Tobacco Type: Cigars - Alcohol History How Often Do You Have a Drink Containing Alcohol: 4 or more times a week - Substance Use History Substance History: No History of Abuse - Travel History Recent Travel in the [place] Within the Last 8 Weeks: No Recent Travel Out of the Country Within the Last 8 Weeks: No - Immunization History Tetanus Immunization: <5 Years Medications and Allergies Active Medications: Active Medications Atorvastatin Calcium (Lipitor) 40 mg PO HS [facility] Carvedilol (Coreg) 12.5 mg PO BID SCOTT Furosemide (Lasix Inj) 40 mg IV.PUSH DAILY SCOTT Pantoprazole Sodium 80 mg/ (Sodium Chloride) 100 mls @ 10 mls/hr IV.CONT CONT SCOTT Last Admin: 01/21/18 12:05 Dose: 10 mls/hr Sodium Chloride (Ns Inj) 250 mls @ 15 mls/hr IV.SIG ONCE SCOTT Stop: 01/22/18 05:39 Last Admin: 01/21/18 13:46 Dose: 15 mls/hr Potassium Chloride 10 meq/ (Sodium Chloride) 1,005 mls @ 50 mls/hr IV.CONT .[id number] SCOTT Last Admin: 01/21/18 17:08 Dose: 50 mls/hr Sodium Chloride (Ns Flush) 2 ml IV.FLUSH PRN PRN PRN Reason: FLUSH AFTER USING IV ACCESS Allergies Allergy/AdvReac Type Severity Reaction Status Date / Time No Known Allergies Allergy Verified 01/21/18 11:21 Home Medications Medication Instructions Recorded Confirmed Type atorvastatin 40 mg PO HS 01/03/18 01/21/18 History carvedilol 12.5 mg PO BID 01/03/18 01/21/18 History furosemide [Lasix] 40 mg PO DAILY 01/03/18 01/21/18 History hydrocodone-acetaminophen [Se[place]our] 1 tab PO BID PRN 01/03/18 01/21/18 History potassium chloride 20 meq PO DAILY 01/03/18 01/21/18 History Exam Vital signs: Vital Signs 01/21/18 11:19 01/21/18 11:21 01/21/18 13:45 Temperature 97.7 F 97.9 F Pulse Rate 71 67 62 Respiratory Rate 18 21 16 Blood Pressure 112/51 L 112/54 L 112/54 L Pulse Oximetry 99 100 99 01/21/18 14:00 01/21/18 15:00 01/21/18 15:33 Temperature 98.0 F 98.1 F 98.0 F Pulse Rate 61 63 62 Respiratory Rate 17 17 19 Blood Pressure 109/53 L 108/55 L 111/55 L Pulse Oximetry 99 99 99 01/21/18 16:00 01/21/18 16:18 01/21/18 16:44 Temperature 98.1 F 98.2 F Pulse Rate 61 61 60 Respiratory Rate 18 20 17 Blood Pressure 111/57 L 111/57 L 125/57 L Pulse Oximetry 99 99 99 Intake & Output 01/20/18 01/21/18 01/21/18 18:59 06:59 18:59 Intake Total 835 / 835 Output Total 600 / 600 Balance 235 / 235 Intake: IV 35 / 35 Protonix Inj 80 MG In NS Inj 35 35 / 35 ML @ 420 mls/hr IV.SIG BOLUS ONE Rx#:[id number] Intake (Blood Product) Amt 800 / 800 Rbc As-3 Leukoreduced Unit 400 / 400 [id number] Rbc As-3 Leukoreduced Unit 400 / 400 [id number] Output: Urine 600 / 600 - Constitutional no acute distress, chronically ill appearing - Routine HEENT Exam Head: Present: normocephalic - Routine Respiratory Exam Present: CTA bilaterally. Absent: accessory muscle use - Routine Cardiovascular Exam Present: S1, S2 - Routine Abdominal Exam Present: soft, normoactive bowel sounds, organomegaly. Absent: tenderness, distended, guarding, firm - Routine Extremities Exam Present: edema - Routine Skin Exam Present: dry, warm - Routine Neurological Exam Present: alert Results - Labs CBC & Chem 7: 01/21/18 18:39 01/21/18 11:58 Labs: Laboratory Results - last 24 hr 01/21/18 01/21/18 01/21/18 11:58 11:58 11:58 WBC 2.8 L RBC 2.09 L Hgb 5.8 L* Hct 17.8 L* MCV 85.0 MCH 27.5 MCHC 32.3 RDW 23.1 H Plt Count 141 L MPV 8.4 Prelim Diff (Auto) Patient Admitting Clerk Neut % (Auto) 60.1 Lymph % (Auto) 22.2 [place] % (Auto) 13.8 H Eos % (Auto) 2.6 Baso % (Auto) 1.3 Neut # (Auto) 1.7 L Lymph # (Auto) 0.6 L [place] # (Auto) 0.4 Eos # (Auto) 0.1 Baso # (Auto) 0.0 WBC Differential . Differential Comment Auto diff final PT 24.9 H INR 2.5 APTT 36.6 H Sodium 140 Potassium 3.3 L Chloride 101 Carbon Dioxide 30.6 Anion Gap 8 BUN 20 H Creatinine 1.42 H Estimated GFR 49 L Random Glucose 154 H Calcium 7.3 L* Calcium Adj for Albumin 8.6 Magnesium 1.6 Iron TIBC % Saturation Ferritin Total Bilirubin 2.3 H AST 49 H ALT 32 Alkaline Phosphatase 75 Total Protein 5.5 L Albumin 2.4 L Blood Type Antibody Screen MTS Gel Crossmatch 01/21/18 01/21/18 01/21/18 11:58 11:58 12:47 WBC RBC Hgb Hct MCV MCH MCHC RDW Plt Count MPV Prelim Diff (Auto) Neut % (Auto) Lymph % (Auto) [place] % (Auto) Eos % (Auto) Baso % (Auto) Neut # (Auto) Lymph # (Auto) [place] # (Auto) Eos # (Auto) Baso # (Auto) WBC Differential Differential Comment PT INR APTT Sodium Potassium Chloride Carbon Dioxide Anion Gap BUN Creatinine Estimated GFR Random Glucose Calcium Calcium Adj for Albumin Magnesium Iron 31 L TIBC 424 % Saturation 7.3 L Ferritin 12 L Total Bilirubin AST ALT Alkaline Phosphatase Total Protein Albumin Blood Type AB Positive Antibody Screen Negative MTS Gel Crossmatch See Detail - Imaging Impressions Chest X-Ray 01/21/18 12:54 CONCLUSION: Negative for acute process Assessment and Plan (1) GI bleed Status: Acute Code(s): K92.2 - Gastrointestinal hemorrhage, unspecified - Plan This patient is a 73-year-old male with past medical history significant for atrial fibrillation, hypertension, hyperlipidemia, prostate cancer and pyloric ulcer. Patient presented to [facility] for evaluation of abnormal lab work. Patient states lab work was performed yesterday as an outpatient and he was told to come to the hospital for further evaluation. Upon consultation, patient reports that he has had dark stools with some red blood noted in it for the past 2-3 days. Of note, patient is currently on Eliquis for atrial fibrillation. Patient denies any noted bleeding at this time. He denies chest pain shortness of breath, nausea vomiting or abdominal pain. Patient states that he drinks beer and wine daily and has noticed a yellow tinge to his eyes as well as bilateral lower extremity edema. Patient denies any use of NSAIDs. Our service has been consulted to evaluate patient for anemia and GI bleeding. Last EGD done 01/05/2018 revealed large ulcer at the pylorus. GI bleed Anemia Patient reports 2-3 days of noticing dark stools with bright red blood. Patient denies any bleeding at this time. 01/21/2018 WBC 2.8 hemoglobin 5.8 hematocrit 17.8, INR 2.5. Patient transfused 2 units RBCs. Posttransfusion hemoglobin and hematocrit pending 01/05/2018 EGD revealed the following-- 1. Large ulcer was found at the pylorus 2. The esophagus appeared normal 3. Normal duodenal mucosa 4. Retroflexion was performed and was normal Plan -N.p.o. after midnight -Obtain consent for EGD -EGD pending INR -INR in a.m. -Ammonia level -CT abdomen and pelvis with contrast-rule out hepatoma, cirrhosis, ascites -Continue Protonix drip -Monitor for bleeding -Transfuse as needed -Supportive care -Further recommendations to follow This patient has been seen by myself and Dr. Pompa and this note is written on his behalf - Attending Attestation Dr. Pompa
[2018-01-21] MEDS ORDERED: Diatrizoate Meglum/Diatrizoate Sod Liq 9 ML UDC ONE (20:53)
[2018-01-21] MEDS ORDERED: Carvedilol 12.5 MG Tablet PO SCH (21:00)
--- NOTE | 2018-01-21 23:01 | CT ---
EXAM DATE: 01/21/2018 10:54 PM EST AGE/SEX: 73 years / Male INDICATIONS: Blood in stool. CLINICAL DATA: This is the patient's initial encounter. Patient reports that signs and symptoms have been present for 1 day and indicates a pain score of 0/10. MEDICAL/SURGICAL HISTORY: Carcinoma, prostatic. Hypertension. Atrial fibrillation Tonsillecto my. Knee surgery, cardiac ablation ORAL CONTRAST: Prescribed oral contrast ingested. RADIATION DOSE: 15.54 CTDI (mGy) COMPARISON: POI, XR SPINE LUMBAR AP AND LAT W/ FLEX AND EXT, 09/13/2017. . TECHNIQUE: Multiple contiguous axial images were obtained through the abdomen and pelvis following b olus infusion of 97 ml Omnipaque 350 (iohexol) nonionic water-soluble contrast as a single exam dos e. Prescribed oral contrast ingested. Using automated exposure control and adjustment of the mA and/ or kV according to patient size, radiation dose was kept as low as reasonably achievable to obtain op timal diagnostic quality images. DICOM format image data is available electronically for review and comparison. FINDINGS: LOWER LUNGS: Trace left pleural effusion with minimal associated atelectasis at the left lung base. LIVER: Cirrhotic appearing liver with 10 mm low-density lesion in the right lobe of the liver which is too small to fully characterize. Gallbladder wall thickening likely due to chronic liver disease. Trace amount of ascites with fluid primarily along the margins of the liver and in the pelvis. SPLEEN: Splenomegaly. PANCREAS: Grossly unremarkable. KIDNEYS: Kidneys are symmetrical in size without evidence for radiopaque renal calculi or hydronephr osis. No significant contour deforming renal abnormality. ADRENAL GLANDS: Unremarkable. AORTA: Nancy-aneurysmal. BOWEL/MESENTERY: Mild sigmoid and scattered colonic diverticulosis without significant inflammatory change to suggest diverticulitis. No dilated loops of bowel. No drainable fluid collections or free a ir. ABDOMINAL WALL: Small fat-containing periumbilical hernia. BLADDER: Contours are smooth. REPRODUCTIVE: Small bilateral hydroceles. BONY STRUCTURES: Degenerative spondylosis of the lumbar spine. Mild compression deformity of L2 supe rior endplate similar to prior radiographs. CONCLUSION: 1. Cirrhotic liver with mild ascites and evidence for portal hypertension. 2. 10 mm low-density lesion in the right lobe of the liver is too small to fully characterize. 3. Mild sigmoid diverticulosis without definitive evidence for diverticulitis. 4. Small fat-containing periumbilical hernia. 5. Small bilateral hydroceles. 6. Degenerative spondylosis of the lower lumbar spine with chronic mild L2 superior endplate brandee renetta fracture. Electronically signed by: Sabino Anderson MD Board Certified Radiologist 01/21/2018 11:[address]
[2018-01-22 04:14] LABS: Calcium 6.5 mg/dL (8.5-10.1); Carbon Dioxide 34.4 meq/L (21.0-32.0)
[2018-01-22 04:40] LABS: Potassium 2.9 meq/L (3.5-5.1)
[2018-01-22 04:52] LABS: Albumin 2.1 g/dL (3.4-5.0)
[2018-01-22] MEDS ORDERED: Sodium Chloride 0.9% 2 ML Flush PRN IV.FLUSH (05:09)
[2018-01-22] MEDS: Potassium Chlor 20 mEq Premix 20 MEQ/100 ML PIGGYBACK IV.SIG SCH ×4 (05:28→14:59)
[2018-01-22] MEDS: Sodium Chloride 0.9% 2 ML Flush BID IV.FLUSH SCH ×2 (08:21→20:12)
[2018-01-22] MEDS: Pantoprazole Inj 80 MG in Sodium Chlor 0.9% Inj 100 ML IV.CONT SCH ×2 (09:28→20:08)
[2018-01-22 09:37] LABS: INR 2.1 Ratio; Prothrombin Time 21.1 sec (9.8-11.6)
[2018-01-22 09:38] LABS: Baso % (Auto) 0.5 % (0.0-2.0); Eos # (Auto) 0.1 th/mm3 (0.0-0.4); Eos % (Auto) 2.7 % (0.0-4.0); Lymph # (Auto) 0.6 th/mm3 (1.0-4.8); Lymph % (Auto) 23.1 % (9.0-44.0); Mean Corpuscular HGB Conc 33.5 % (32.0-36.0); Mean Corpuscular Hemoglobin 27.7 pg (27.0-34.0); Mean Corpuscular Volume 82.9 fL (80.0-100.0); Mean Platelet Volume 8.7 fL (7.0-11.0); Mono # (Auto) 0.3 th/mm3 (0.0-0.9); Mono % (Auto) 11.1 % (0.0-8.0); Neut # (Auto) 1.6 th/mm3 (1.8-7.7); Neut % (Auto) 62.6 % (16.0-70.0); Platelet Count 128 th/mm3 (150-450); Red Blood Count 2.35 mil/mm3 (4.50-5.90); Red Cell Distribution Width 19.9 % (11.6-17.2); White Blood Count 2.5 th/mm3 (4.0-11.0)
[2018-01-22 09:50] LABS: Hematocrit 19.5 % (39.0-51.0); Hemoglobin 6.5 gm/dL (13.0-17.0)
--- NOTE | 2018-01-22 10:24 | ECG ---
Date Performed: 01/21/2018 Time Performed: 13:03:44 PTAGE: 73 years EKG: Sinus rhythm MARKED LEFT AXIS DEVIATION RIGHT BUNDLE BRANCH BLOCK ABNORMAL ECG Since the PREVIOUS TRACING , no significant change noted PREVIOUS TRACIN01/03/2018 13.55 DOCTOR: Shai Arriaga Interpretating Date/Time 01/22/2018 10:22:57
[2018-01-22] MEDS ORDERED: Sodium Chlor 0.9% Inj 250 ML IV.SIG SCH (11:00)
[2018-01-22] MEDS ORDERED: Mag Sulf 1 gm/100 ml Premix 100 ML IV.SIG ONE (11:00)
--- NOTE | 2018-01-22 11:24 | P.PNIM ---
Subjective Interval history: No bleeding ulcers seen. No nausea or vomiting, no chest pain , not short of breath. Having some loose stools. Dark at times. Physical Exam Vital signs: Last Vital Signs Temp 97.8 F 01/22/18 08:00 Pulse 60 01/22/18 09:55 Resp 16 01/22/18 08:00 BP 113/46 L 01/22/18 08:00 Pulse Ox 98 01/22/18 08:00 Intake & Output 01/20/18 01/21/18 01/22/18 01/23/18 06:59 06:59 06:59 06:59 Intake Total 1185 / 1185 200 / 200 Output Total 1100 / 1100 Balance 85 / 85 200 / 200 Weight 126.2 kg Narrative: Not in distress Pale conjunctive a, pupils equal round reactive Soft, obese, not distended, no tenderness Regular rate and rhythm, no murmurs Clear breath sounds Abdomen soft nontender 2+ edema Alert awake and oriented x3. No focal deficits. Results Labs CBC & Chem 7: 01/22/18 08:04 01/22/18 03:29 Imaging Imaging: Impressions Chest X-Ray 01/21/18 12:54 CONCLUSION: Negative for acute process Abdomen/Pelvis CT 01/21/18 18:43 CONCLUSION: 1. Cirrhotic liver with mild ascites and evidence for portal hypertension. 2. 10 mm low-density lesion in the right lobe of the liver is too small to fully characterize. 3. Mild sigmoid diverticulosis without definitive evidence for diverticulitis. 4. Small fat-containing periumbilical hernia. 5. Small bilateral hydroceles. 6. Degenerative spondylosis of the lower lumbar spine with chronic mild L2 superior endplate compression fracture. Assessment and Plan (1) GI bleed: Code(s): K92.2 - Gastrointestinal hemorrhage, unspecified Status: Acute Plan This is 73 y/o male with history of a-fib, on anticoagulation, hypertension, prostate cancer, dyslipidemia, who presented to ER with generalized weakness. He was recently admitted to this hospital for the same reason. he underwent EGD which showed an ulcer at Pylorus. He was switched from Coumadin to Eliquis and the he was discharged home. Upon admission, hemoglobin was 5.8. Acute on chronic anemia secondary to recurrent GI bleeding-obviously hold anticoagulation, keep n.p.o., continue Protonix IV, status post transfusion 2 units of packed red blood cells, hemoglobin went up to 6.7 and now down to 6.5, transfuse 2 more units of packed red blood cells. Previous EGD showed pyloric ulcer. CT abdomen done, showed cirrhotic liver with mild ascites and evidence of portal hypertension. There is also a 10 mm low-density lesion in the right lobe of the liver. Mild hyper hyperammonemia at 40, likely just from GI bleed. No lactulose for now. GI consulted, status post EGD, showed prepyloric ulcer, friable mucosa but no active bleeding. Also patient has melanotic stools, might need a colonoscopy. -We will check CBC/hemoglobin after transfusion Atrial [id number] on hold because of low blood pressure, resume when stable. Eliquis on hold, previously on Coumadin. Liver cirrhosis, portal hypertension, mild ascites-we will need to restart beta- blockers when stable Coagulopathy, INR 2.5, now 2.1. We will give vitamin K, recheck INR tomorrow. Mild thrombocytopenia-platelets 128, recheck CBC tomorrow. Acute renal failure-1.42 creatinine admission, now down to 1.0, continue normal saline. Recheck BMP tomorrow. Hypokalemia-replaced, check magnesium, 40 mEq given, will give another 40 mEq intravenously. Hypocalcemia-calcium gluconate now, recheck tomorrow. Hypomagnesemia-replace with mag sulfate. Hypertension-hold antihypertensives, restart when stable DVT prophylaxis: SCDs, pharmacological prophylaxis contraindicated. Progress Note: Quality VTE Deep Vein Thrombosis/Pulmonary Embolism Present on Admission: No _ (1) GI bleed Qualifiers: GI bleed type/associated pathology: Gastritis type:
[2018-01-22] MEDS ORDERED: Phytonadione Inj 10 MG/ML Vial SQ ONE (12:00)
[2018-01-22] MEDS ORDERED: Calcium Chloride Inj 1 GM in Sodium Chlor 0.9% Inj 100 ML IV.SIG ONE (12:00)
--- NOTE | 2018-01-22 12:18 | P.BOP ---
- Preoperative Diagnosis (1) GI bleed (2) Symptomatic anemia - Postoperative Diagnosis (1) Gastritis (2) Gastric ulcer Date of procedure: 01/22/18 Procedure: Upper panendoscoy with biopsy The scope was inserted orally and advanced through to the duodenum under direct visualization without difficulty. The patient tolerated the procedure well. Findings: Oral Pharynx: normal Esophagus: The esohpageal mucosa appeared normal. The Z line was seen at 45 cm and was regular in appearance. No Suggs's or erythema/erosions were seen. Stomach: Direct and retroflex views were obtained. The antrum appeared erythematous and edematous. A superficial prepyloric ulcer was seen in between the swollen folds. It was friable but no spontaneously bleeding. There was no active bleeding. Biopsies were obtained from the antrum and body for histology. Retroflex in the stomach revealed a normal cardia and no hiatal hernia. Duodenum: The bulb and second portion appeared normal. Impression: Gastritis Prepyloric ulcer Anesthesia: MAC Surgeon: Armand Zhang MD Pathology: other (Biopsies from gastric antrum and body) Condition: stable Disposition: floor
[2018-01-22] MEDS: Potassium Chloride Inj 10 MEQ in Sodium Chloride 0.45 % Inj 1,000 ML IV.CONT SCH (13:00)
[2018-01-23 01:18] LABS: Hematocrit 23.7 % (39.0-51.0); Hemoglobin 8.2 gm/dL (13.0-17.0)
[2018-01-23] MEDS: Potassium Chloride Inj 10 MEQ in Sodium Chloride 0.45 % Inj 1,000 ML IV.CONT SCH (07:34)
[2018-01-23 07:36] LABS: Baso % (Auto) 1.1 % (0.0-2.0); Eos # (Auto) 0.1 th/mm3 (0.0-0.4); Eos % (Auto) 2.6 % (0.0-4.0); Hematocrit 23.2 % (39.0-51.0); Hemoglobin 7.9 gm/dL (13.0-17.0); Lymph # (Auto) 0.9 th/mm3 (1.0-4.8); Lymph % (Auto) 22.8 % (9.0-44.0); Mean Corpuscular HGB Conc 33.9 % (32.0-36.0); Mean Corpuscular Hemoglobin 28.8 pg (27.0-34.0); Mean Corpuscular Volume 84.8 fL (80.0-100.0); Mean Platelet Volume 8.2 fL (7.0-11.0); Mono # (Auto) 0.4 th/mm3 (0.0-0.9); Mono % (Auto) 11.6 % (0.0-8.0); Neut # (Auto) 2.4 th/mm3 (1.8-7.7); Neut % (Auto) 61.9 % (16.0-70.0); Platelet Count 141 th/mm3 (150-450); Red Blood Count 2.74 mil/mm3 (4.50-5.90); Red Cell Distribution Width 18.7 % (11.6-17.2); White Blood Count 3.8 th/mm3 (4.0-11.0)
[2018-01-23] MEDS: Pantoprazole Inj 80 MG in Sodium Chlor 0.9% Inj 100 ML IV.CONT SCH (07:36)
[2018-01-23 07:43] LABS: INR 1.9 Ratio; Prothrombin Time 18.8 sec (9.8-11.6)
[2018-01-23 08:02] LABS: Calcium 7.1 mg/dL (8.5-10.1); Carbon Dioxide 32.6 meq/L (21.0-32.0); Magnesium 1.7 mg/dL (1.5-2.5); Potassium 3.3 meq/L (3.5-5.1)
[2018-01-23 08:15] LABS: Albumin 2.2 g/dL (3.4-5.0); Calcium-Albumin Corrected 8.5 mg/dL (8.5-10.1)
[2018-01-23] MEDS: Sodium Chloride 0.9% 2 ML Flush BID IV.FLUSH SCH ×2 (08:42→20:07)
--- NOTE | 2018-01-23 09:47 | P.PNIM ---
Subjective Interval history: No overnight events, feels stronger, having melanotic stools, no chest pain or shortness of breath. No nausea or vomiting. Lower extremity swelling increasing. Physical Exam Vital signs: Last Vital Signs Temp 97.9 F 01/23/18 08:00 Pulse 64 01/23/18 08:00 Resp 18 01/23/18 08:00 BP 125/62 01/23/18 08:00 Pulse Ox 97 01/23/18 08:00 Intake & Output 01/21/18 01/22/18 01/23/18 01/24/18 06:59 06:59 06:59 06:59 Intake Total 1185 / 1185 4055 / 4055 1355 / 1355 Output Total 1100 / 1100 1750 / 1750 Balance 85 / 85 2305 / 2305 1355 / 1355 Weight 126.2 kg 128.2 kg Narrative: Not in distress Pale conjunctiva, pupils equal round reactive Soft, obese, not distended, no tenderness Regular rate and rhythm, no murmurs Clear breath sounds Abdomen soft nontender 2+ edema Alert awake and oriented x3. No focal deficits. Results Labs CBC & Chem 7: 01/23/18 06:44 01/23/18 06:44 Procedures Procedures: status post repeat EGD 01/21/18, showed prepyloric ulcer, friable mucosa but no active bleeding. Assessment and Plan (1) GI bleed: Code(s): K92.2 - Gastrointestinal hemorrhage, unspecified Status: Acute Plan This is 73 y/o male with history of a-fib, on anticoagulation, hypertension, prostate cancer, dyslipidemia, who presented to ER with generalized weakness. He was recently admitted to this hospital for the same reason. He underwent EGD which showed an ulcer at Pylorus. He was switched from Coumadin to Eliquis and the he was discharged home. Upon ED evaluation for weakness, hemoglobin was 5.8. CT abdomen done, showed cirrhotic liver with mild ascites and evidence of portal hypertension. There is also a 10 mm low-density lesion in the right lobe of the liver. Gastroenterology consulted, status post repeat EGD 01/21/18 , showed prepyloric ulcer, friable mucosa but no active bleeding. Acute on chronic anemia secondary to recurrent GI bleeding, with iron deficiency anemia- continue Protonix IV, status post transfusion 4 units of packed red blood cells, Mild hyper hyperammonemia at 40, likely just from GI bleed. No lactulose for now. GI consulted, status post repeat EGD Also patient has melanotic stools, might need a colonoscopy. Check occult blood, complaining of hematuria -Hemoglobin stable today, recheck hemoglobin every 12 hours, check urinalysis for possible hematuria. Needs To be on iron supplement on discharge. Atrial gcxmtosgwzdi-aben-[id number] on hold because of low blood pressure, resume when stable. Eliquis on hold, previously on Coumadin. Liver cirrhosis, portal hypertension, mild ascites-we will need to restart beta- blockers when stable, restart Lasix with increasing lower extremity edema. Check BMP tomorrow. Coagulopathy, INR 2.5-status post vitamin K, INR now 1.9 Mild thrombocytopenia-platelets 141, stable. Acute renal failure-1.42 creatinine admission, now back to normal, resolved with normal saline. Restart Lasix, check BMP tomorrow Hypokalemia-still low, replace orally. Check BMP tomorrow Hypocalcemia-resolved after calcium gluconate Hypomagnesemia-replace with mag sulfate. Recheck tomorrow. Hypertension-hold antihypertensives, restart when stable DVT prophylaxis: SCDs, pharmacological prophylaxis contraindicated. Progress Note: Quality VTE Deep Vein Thrombosis/Pulmonary Embolism Present on Admission: No _ (1) GI bleed Qualifiers: GI bleed type/associated pathology: Gastritis type:
[2018-01-23] MEDS ORDERED: Mag Sulf 1 gm/100 ml Premix 100 ML IV.SIG ONE (10:00)
[2018-01-23 10:05] LABS: Bilirubin,Urine Negative (Negative); Clarity,Urine Clear (Clear); Color,Urine Yellow (Yellw/Straw); Glucose,Urine (UA) Negative (Negative); Leukocyte Esterase,Urine Negative (Negative); Nitrite,Urine Negative (Negative); Specific Gravity,Urine 1.017 (1.002-1.035); Squamous Epithelial Cell,Urine <1 /hpf (0-5)
--- NOTE | 2018-01-23 15:15 | P.PNGI ---
Subjective Interval history: Patient sitting up at bedside Spouse present Patient reports one dark stool this a.m. Post EGD <Patty Davis - Last Filed: 01/23/18 15:07> Physical Exam Vital signs: Vital Signs 01/22/18 16:00 01/22/18 16:19 01/22/18 16:35 Temperature 97.9 F 98.0 F 97.9 F Pulse Rate 64 63 64 Respiratory Rate 18 18 18 Blood Pressure 112/57 L 106/56 L 112/57 L Pulse Oximetry 100 99 100 01/22/18 17:00 01/22/18 17:06 01/22/18 18:38 Temperature 97.9 F Pulse Rate 60 62 68 Respiratory Rate 20 Blood Pressure 115/62 Pulse Oximetry 100 01/22/18 19:00 01/22/18 20:00 01/22/18 21:00 Temperature 98 F Pulse Rate 61 66 64 Respiratory Rate 20 Blood Pressure 117/46 L Pulse Oximetry 97 01/22/18 21:05 01/22/18 22:00 01/22/18 23:00 Temperature Pulse Rate 62 64 Respiratory Rate Blood Pressure Pulse Oximetry 92 L 01/22/18 23:51 01/22/18 23:52 01/23/18 01:00 Temperature 98.2 F Pulse Rate 65 65 62 Respiratory Rate 20 Blood Pressure 115/54 L Pulse Oximetry 96 01/23/18 02:00 01/23/18 03:00 01/23/18 04:00 Temperature 98.1 F Pulse Rate 60 63 64 Respiratory Rate 18 Blood Pressure 115/59 L Pulse Oximetry 96 01/23/18 05:00 01/23/18 06:00 01/23/18 07:00 Temperature Pulse Rate 66 65 64 Respiratory Rate Blood Pressure Pulse Oximetry 01/23/18 08:00 01/23/18 09:00 01/23/18 09:57 Temperature 97.9 F Pulse Rate 64 65 66 Respiratory Rate 18 Blood Pressure 125/62 Pulse Oximetry 97 01/23/18 11:00 01/23/18 12:00 01/23/18 12:44 Temperature 98.2 F Pulse Rate 64 64 66 Respiratory Rate 18 Blood Pressure 125/63 Pulse Oximetry 98 01/23/18 14:00 01/23/18 14:39 Temperature Pulse Rate 66 65 Respiratory Rate Blood Pressure Pulse Oximetry Intake & Output 01/22/18 01/23/18 01/23/18 18:59 06:59 18:59 Intake Total 3475 / 3475 580 / 580 1455 / 1455 Output Total 1050 / 1050 700 / 700 Balance 2425 / 2425 -120 / -120 1455 / 1455 Weight 128.2 kg Intake: IV 1615 / 1615 100 / 100 1455 / 1455 Protonix Inj 80 MG In NS Inj 100 / 100 100 / 100 100 ML @ 10 mls/hr IV.CONT CONT [facility] Rx#:[id number] KCl Inj 10 MEQ In 1/2 Normal 1005 / 1005 1005 / 1005 Saline Inj 1,000 ML @ 50 mls/hr IV.CONT .Q20H6M [facility] Rx#: [id number] Calcium Chloride Inj 1 GM In NS 110 / 110 Inj 100 ML @ 110 mls/hr IV.SIG ONCE ONE Rx#:[id number] Magnesium Sulfate 1 gm/D5W 100 100 / 100 100 / 100 ml Premix 100 ML @ 100 mls/hr IV.SIG ONCE ONE Rx#:[id number] KCl 20 mEq Premix Inj 20 meq In 400 / 400 100 ml @ 50 mls/hr IV.SIG Q2H [facility] Rx#:[id number] NS Inj 250 ML @ 15 mls/hr IV. 250 / 250 SIG ONCE [facility] Rx#:[id number] Oral 1260 / 1260 480 / 480 Anesthesia Amount 200 / 200 Intake (Blood Product) Amt 400 / 400 Rbc As-3 Leukoreduced Unit 400 / 400 [id number] Rbc As-3 Leukoreduced Unit 0 / 0 [id number] Output: Urine 1050 / 1050 700 / 700 Other: Date of Last Bowel Movement 01/22/18 # Bowel Movements 3 1 - Constitutional no acute distress - Routine Respiratory Exam Present: CTA bilaterally. Absent: accessory muscle use - Routine Abdominal Exam Present: soft, normoactive bowel sounds. Absent: tenderness, distended, guarding, firm - Routine Skin Exam Present: dry, warm - Routine Neurological Exam Present: alert <Davis,Patty - Last Filed: 01/23/18 15:07> Vital signs: Vital Signs 01/23/18 09:00 01/23/18 09:57 01/23/18 11:00 Temperature Pulse Rate 65 66 64 Respiratory Rate Blood Pressure Pulse Oximetry 01/23/18 12:00 01/23/18 12:44 01/23/18 14:00 Temperature 98.2 F Pulse Rate 64 66 66 Respiratory Rate 18 Blood Pressure 125/63 Pulse Oximetry 98 01/23/18 14:39 01/23/18 15:54 01/23/18 16:00 Temperature 97.9 F Pulse Rate 65 65 67 Respiratory Rate 18 Blood Pressure 128/64 Pulse Oximetry 99 01/23/18 17:00 01/23/18 18:00 01/23/18 19:00 Temperature Pulse Rate 67 67 71 Respiratory Rate Blood Pressure Pulse Oximetry 01/23/18 20:00 01/23/18 21:00 01/23/18 22:00 Temperature 98.2 F Pulse Rate 68 65 66 Respiratory Rate 20 Blood Pressure 148/76 H Pulse Oximetry 99 01/23/18 23:00 01/24/18 00:00 01/24/18 01:00 Temperature 98.3 F Pulse Rate 67 68 69 Respiratory Rate 18 Blood Pressure 154/78 H Pulse Oximetry 98 01/24/18 02:00 01/24/18 03:00 01/24/18 04:00 Temperature 98 F Pulse Rate 71 70 73 Respiratory Rate 20 Blood Pressure 131/57 L Pulse Oximetry 97 01/24/18 05:00 01/24/18 06:00 01/24/18 07:00 Temperature Pulse Rate 71 72 66 Respiratory Rate Blood Pressure Pulse Oximetry Intake & Output 01/23/18 01/24/18 01/24/18 18:59 06:59 18:59 Intake Total 2775 / 2775 1485 / 1485 Output Total 1550 / 1550 850 / 850 Balance 1225 / 1225 635 / 635 Weight 129 kg Intake: IV 1555 / 1555 1005 / 1005 Protonix Inj 80 MG In NS Inj 200 / 200 100 ML @ 10 mls/hr IV.CONT CONT [facility] Rx#:[id number] KCl Inj 10 MEQ In 1/2 Normal 1005 / 1005 1005 / 1005 Saline Inj 1,000 ML @ 50 mls/hr IV.CONT .Q20H6M [facility] Rx#: [id number] Magnesium Sulfate 1 gm/D5W 100 100 / 100 ml Premix 100 ML @ 100 mls/hr IV.SIG ONCE ONE Rx#:[id number] NS Inj 250 ML @ 15 mls/hr IV. 250 / 250 SIG ONCE [facility] Rx#:[id number] Oral 1220 / 1220 480 / 480 Output: Urine 1550 / 1550 850 / 850 Other: Date of Last Bowel Movement 01/23/18 # Bowel Movements 2 1 <Armand Zhang - Last Filed: 01/24/18 08:58> Results - Labs CBC & Chem 7: 01/23/18 06:44 01/23/18 06:44 Laboratory Results - last 24 hr 01/21/18 01/22/18 01/22/18 12:47 10:12 22:44 WBC RBC Hgb 8.2 L Hct 23.7 L MCV MCH MCHC RDW Plt Count MPV Neut % (Auto) Lymph % (Auto) [place] % (Auto) Eos % (Auto) Baso % (Auto) Neut # (Auto) Lymph # (Auto) [place] # (Auto) Eos # (Auto) Baso # (Auto) WBC Differential Differential Comment PT INR Sodium Potassium Chloride Carbon Dioxide Anion Gap BUN Creatinine Estimated GFR Random Glucose Calcium Calcium Adj for Albumin Magnesium Albumin Urine Color Urine Clarity Urine pH Ur Specific [place] Urine Protein Urine Glucose (UA) Urine Ketones Urine Occult Blood Urine Nitrate Urine Bilirubin Urine Urobilinogen Ur Leukocyte Esterase Urine RBC Urine WBC Ur Squamous Epith Cells Micro UA Comment Ur Microscopic Review Urine Culture Comments MTS Gel Crossmatch See Detail See Detail 01/23/18 01/23/18 01/23/18 06:44 06:44 06:44 WBC 3.8 L D RBC 2.74 L Hgb 7.9 L Hct 23.2 L MCV 84.8 MCH 28.8 MCHC 33.9 RDW 18.7 H Plt Count 141 L MPV 8.2 Neut % (Auto) 61.9 Lymph % (Auto) 22.8 [place] % (Auto) 11.6 H Eos % (Auto) 2.6 Baso % (Auto) 1.1 Neut # (Auto) 2.4 Lymph # (Auto) 0.9 L [place] # (Auto) 0.4 Eos # (Auto) 0.1 Baso # (Auto) 0.0 WBC Differential . Differential Comment Auto diff final PT 18.8 H INR 1.9 Sodium 140 Potassium 3.3 L Chloride 103 Carbon Dioxide 32.6 H Anion Gap 4 L BUN 17 Creatinine 1.19 Estimated GFR 60 L Random Glucose 97 Calcium 7.1 L* Calcium Adj for Albumin 8.5 Magnesium 1.7 Albumin 2.2 L Urine Color Urine Clarity Urine pH Ur Specific [place] Urine Protein Urine Glucose (UA) Urine Ketones Urine Occult Blood Urine Nitrate Urine Bilirubin Urine Urobilinogen Ur Leukocyte Esterase Urine RBC Urine WBC Ur Squamous Epith Cells Micro UA Comment Ur Microscopic Review Urine Culture Comments MTS Gel Crossmatch 01/23/18 09:57 WBC RBC Hgb Hct MCV MCH MCHC RDW Plt Count MPV Neut % (Auto) Lymph % (Auto) [place] % (Auto) Eos % (Auto) Baso % (Auto) Neut # (Auto) Lymph # (Auto) [place] # (Auto) Eos # (Auto) Baso # (Auto) WBC Differential Differential Comment PT INR Sodium Potassium Chloride Carbon Dioxide Anion Gap BUN Creatinine Estimated GFR Random Glucose Calcium Calcium Adj for Albumin Magnesium Albumin Urine Color Yellow Urine Clarity Clear Urine pH 6.0 Ur Specific [place] 1.017 Urine Protein Negative Urine Glucose (UA) Negative Urine Ketones Negative Urine Occult Blood Negative Urine Nitrate Negative Urine Bilirubin Negative Urine Urobilinogen 2.0 H Ur Leukocyte Esterase Negative Urine RBC Less than 1 Urine WBC 2 Ur Squamous Epith Cells <1 Micro UA Comment Culture not ind Ur Microscopic Review Not Reportable Urine Culture Comments Culture not ind MTS Gel Crossmatch Microbiology 01/23/18 10:11 Stool Stool Occult Blood (NIK) - Final Hemoccult positive - Procedures status post repeat EGD 01/21/18, showed prepyloric ulcer, friable mucosa but no active bleeding. <Patty Davis - Last Filed: 01/23/18 15:07> - Labs CBC & Chem 7: 01/24/18 05:00 01/24/18 05:00 Laboratory Results - last 24 hr 01/23/18 01/23/18 01/24/18 09:57 18:48 05:00 WBC 4.2 RBC 3.01 L Hgb 8.9 L 8.4 L Hct 26.7 L 25.7 L MCV 85.3 MCH 28.0 MCHC 32.8 RDW 19.2 H Plt Count 149 L MPV 8.1 Neut % (Auto) 65.9 Lymph % (Auto) 19.9 [place] % (Auto) 10.9 H Eos % (Auto) 2.4 Baso % (Auto) 0.9 Neut # (Auto) 2.8 Lymph # (Auto) 0.8 L [place] # (Auto) 0.5 Eos # (Auto) 0.1 Baso # (Auto) 0.0 WBC Differential . Differential Comment Auto diff final Sodium Potassium Chloride Carbon Dioxide Anion Gap BUN Creatinine Estimated GFR Random Glucose Calcium Calcium Adj for Albumin Magnesium Albumin Urine Color Yellow Urine Clarity Clear Urine pH 6.0 Ur Specific [place] 1.017 Urine Protein Negative Urine Glucose (UA) Negative Urine Ketones Negative Urine Occult Blood Negative Urine Nitrate Negative Urine Bilirubin Negative Urine Urobilinogen 2.0 H Ur Leukocyte Esterase Negative Urine RBC Less than 1 Urine WBC 2 Ur Squamous Epith Cells <1 Micro UA Comment Culture not ind Ur Microscopic Review Not Reportable Urine Culture Comments Culture not ind 01/24/18 05:00 WBC RBC Hgb Hct MCV MCH MCHC RDW Plt Count MPV Neut % (Auto) Lymph % (Auto) [place] % (Auto) Eos % (Auto) Baso % (Auto) Neut # (Auto) Lymph # (Auto) [place] # (Auto) Eos # (Auto) Baso # (Auto) WBC Differential Differential Comment Sodium 142 Potassium 3.4 L Chloride 103 Carbon Dioxide 33.3 H Anion Gap 6 BUN 13 Creatinine 1.16 Estimated GFR 62 L Random Glucose 113 H Calcium 7.2 L* Calcium Adj for Albumin 8.6 Magnesium 1.7 Albumin 2.3 L Urine Color Urine Clarity Urine pH Ur Specific [place] Urine Protein Urine Glucose (UA) Urine Ketones Urine Occult Blood Urine Nitrate Urine Bilirubin Urine Urobilinogen Ur Leukocyte Esterase Urine RBC Urine WBC Ur Squamous Epith Cells Micro UA Comment Ur Microscopic Review Urine Culture Comments Microbiology 01/23/18 10:11 Stool Stool Occult Blood (NIK) - Final Hemoccult positive <Armand Zhang - Last Filed: 01/24/18 08:58> Assessment and Plan (1) GI bleed Status: Acute Code(s): K92.2 - Gastrointestinal hemorrhage, unspecified - Plan This patient is a 73-year-old male with past medical history significant for atrial fibrillation, hypertension, hyperlipidemia, prostate cancer and pyloric ulcer. Patient presented to [facility] for evaluation of abnormal lab work. Patient states lab work was performed yesterday as an outpatient and he was told to come to the hospital for further evaluation. Upon consultation, patient reports that he has had dark stools with some red blood noted in it for the past 2-3 days. Of note, patient is currently on Eliquis for atrial fibrillation. Patient denies any noted bleeding at this time. He denies chest pain shortness of breath, nausea vomiting or abdominal pain. Patient states that he drinks beer and wine daily and has noticed a yellow tinge to his eyes as well as bilateral lower extremity edema. Patient denies any use of NSAIDs. Our service has been consulted to evaluate patient for anemia and GI bleeding. Last EGD done 01/05/2018 revealed large ulcer at the pylorus. GI bleed Anemia Patient reports 2-3 days of noticing dark stools with bright red blood. Patient denies any bleeding at this time. 01/21/2018 WBC 2.8 hemoglobin 5.8 hematocrit 17.8, INR 2.5. Patient transfused 2 units RBCs. Posttransfusion hemoglobin and hematocrit pending 01/05/2018 EGD revealed the following-- 1. Large ulcer was found at the pylorus 2. The esophagus appeared normal 3. Normal duodenal mucosa 4. Retroflexion was performed and was normal 01/23/2018 Patient sitting up at bedside. Reports one dark stool this a.m. Denies any abdominal pain nausea or vomiting. 01/22/2018 EGD revealed the following findings: Oral Pharynx:normal Esophagus:The esohpageal mucosa appeared normal. The Z line was seen at 45 cm and was regular in appearance. No Suggs's or erythema/erosions were seen. Stomach: Direct and retroflex views were obtained. The antrum appeared erythematous and edematous. A superficial prepyloric ulcer was seen in between the swollen folds. It was friable but no spontaneously bleeding. There was no active bleeding. Biopsies were obtained from the antrum and body for histology. Retroflex in the stomach revealed a normal cardia and no hiatal hernia. Duodenum: The bulb and second portion appeared normal. WBC 3.8 hemoglobin 7.9 hematocrit 23.2, 01/22/2018 ammonia level 40 Plan -Cardiac diet as tolerated -Monitor for bleeding -Monitor hemoglobin and hematocrit closely -CBC in a.m. -May restart Eliquis -Pantoprazole 40 mg IV twice daily -Supportive care -Further recommendations to follow This patient has been seen by myself and Dr. Zhang and this note is written on his behalf - Attending Attestation Dr. Zhang <Patty Davis - Last Filed: 01/23/18 15:07> (1) GI bleed Status: Acute Code(s): K92.2 - Gastrointestinal hemorrhage, unspecified - Attending Attestation The patient was seen and examined. Agree with above. <Armand Zhang - Last Filed: 01/24/18 08:58>
[2018-01-23] MEDS: Pantoprazole Inj 40 MG Vial IV.PUSH SCH (17:07)
[2018-01-23 19:09] LABS: Hematocrit 26.7 % (39.0-51.0); Hemoglobin 8.9 gm/dL (13.0-17.0)
[2018-01-24] MEDS: Pantoprazole Inj 40 MG Vial IV.PUSH SCH ×2 (04:42→16:01)
[2018-01-24] MEDS: Potassium Chloride Inj 10 MEQ in Sodium Chloride 0.45 % Inj 1,000 ML IV.CONT SCH (04:43)
[2018-01-24 05:21] LABS: Baso % (Auto) 0.9 % (0.0-2.0); Eos # (Auto) 0.1 th/mm3 (0.0-0.4); Eos % (Auto) 2.4 % (0.0-4.0); Hematocrit 25.7 % (39.0-51.0); Hemoglobin 8.4 gm/dL (13.0-17.0); Lymph # (Auto) 0.8 th/mm3 (1.0-4.8); Lymph % (Auto) 19.9 % (9.0-44.0); Mean Corpuscular HGB Conc 32.8 % (32.0-36.0); Mean Corpuscular Volume 85.3 fL (80.0-100.0); Mean Platelet Volume 8.1 fL (7.0-11.0); Mono # (Auto) 0.5 th/mm3 (0.0-0.9); Mono % (Auto) 10.9 % (0.0-8.0); Neut # (Auto) 2.8 th/mm3 (1.8-7.7); Neut % (Auto) 65.9 % (16.0-70.0); Platelet Count 149 th/mm3 (150-450); Red Blood Count 3.01 mil/mm3 (4.50-5.90); Red Cell Distribution Width 19.2 % (11.6-17.2); White Blood Count 4.2 th/mm3 (4.0-11.0)
[2018-01-24 05:42] LABS: Calcium 7.2 mg/dL (8.5-10.1); Carbon Dioxide 33.3 meq/L (21.0-32.0); Magnesium 1.7 mg/dL (1.5-2.5); Potassium 3.4 meq/L (3.5-5.1)
[2018-01-24 05:50] LABS: Albumin 2.3 g/dL (3.4-5.0); Calcium-Albumin Corrected 8.6 mg/dL (8.5-10.1)
[2018-01-24] MEDS: Sodium Chloride 0.9% 2 ML Flush BID IV.FLUSH SCH (08:21)
--- NOTE | 2018-01-24 14:26 | P.PNIM ---
Subjective Interval history: Says he is feeling all right. Denies any chest pain shortness of breath. Says he feels like going home. He denies ever having history of a stroke or DVT/PE Physical Exam Vital signs: Vital Signs 01/23/18 14:00 01/23/18 14:39 01/23/18 15:54 Temperature Pulse Rate 66 65 65 Respiratory Rate Blood Pressure Pulse Oximetry 01/23/18 16:00 01/23/18 17:00 01/23/18 18:00 Temperature 97.9 F Pulse Rate 67 67 67 Respiratory Rate 18 Blood Pressure 128/64 Pulse Oximetry 99 01/23/18 19:00 01/23/18 20:00 01/23/18 21:00 Temperature 98.2 F Pulse Rate 71 68 65 Respiratory Rate 20 Blood Pressure 148/76 H Pulse Oximetry 99 01/23/18 22:00 01/23/18 23:00 01/24/18 00:00 Temperature 98.3 F Pulse Rate 66 67 68 Respiratory Rate 18 Blood Pressure 154/78 H Pulse Oximetry 98 01/24/18 01:00 01/24/18 02:00 01/24/18 03:00 Temperature Pulse Rate 69 71 70 Respiratory Rate Blood Pressure Pulse Oximetry 01/24/18 04:00 01/24/18 05:00 01/24/18 06:00 Temperature 98 F Pulse Rate 73 71 72 Respiratory Rate 20 Blood Pressure 131/57 L Pulse Oximetry 97 01/24/18 07:00 01/24/18 08:00 01/24/18 09:00 Temperature 98.1 F Pulse Rate 66 76 70 Respiratory Rate 18 Blood Pressure 127/60 Pulse Oximetry 97 97 01/24/18 10:00 01/24/18 11:00 01/24/18 12:00 Temperature 98.3 F Pulse Rate 68 66 69 Respiratory Rate 18 Blood Pressure 135/71 Pulse Oximetry 99 Intake & Output 01/23/18 01/24/18 01/24/18 18:59 06:59 18:59 Intake Total 2775 / 2775 1485 / 1485 Output Total 1550 / 1550 850 / 850 Balance 1225 / 1225 635 / 635 Weight 129 kg Intake: IV 1555 / 1555 1005 / 1005 Protonix Inj 80 MG In NS Inj 200 / 200 100 ML @ 10 mls/hr IV.CONT CONT [facility] Rx#:[id number] KCl Inj 10 MEQ In 1/2 Normal 1005 / 1005 1005 / 1005 Saline Inj 1,000 ML @ 50 mls/hr IV.CONT .Q20H6M [facility] Rx#: [id number] Magnesium Sulfate 1 gm/D5W 100 100 / 100 ml Premix 100 ML @ 100 mls/hr IV.SIG ONCE ONE Rx#:[id number] NS Inj 250 ML @ 15 mls/hr IV. 250 / 250 SIG ONCE [facility] Rx#:[id number] Oral 1220 / 1220 480 / 480 Output: Urine 1550 / 1550 850 / 850 Other: Date of Last Bowel Movement 01/23/18 # Bowel Movements 2 1 Narrative: GENERAL: lying in bed. Appears comfortable. SKIN: Warm and dry. HEAD: Normocephalic. EYES: No scleral icterus. No injection or drainage. NECK: Supple, trachea midline. No JVD CARDIOVASCULAR: Regular rate and rhythm without murmurs, gallops, or rubs. RESPIRATORY: Breath sounds equal bilaterally. No accessory muscle use. GASTROINTESTINAL: Abdomen soft, non-tender, nondistended. MUSCULOSKELETAL: No cyanosis. +1 bilateral lower extremity edema. BACK: Nontender without obvious deformity. No CVA tenderness. Results - Labs CBC & Chem 7: 01/24/18 05:00 01/24/18 05:00 Laboratory Results - last 24 hr 01/23/18 01/24/18 01/24/18 18:48 05:00 05:00 WBC 4.2 RBC 3.01 L Hgb 8.9 L 8.4 L Hct 26.7 L 25.7 L MCV 85.3 MCH 28.0 MCHC 32.8 RDW 19.2 H Plt Count 149 L MPV 8.1 Neut % (Auto) 65.9 Lymph % (Auto) 19.9 [place] % (Auto) 10.9 H Eos % (Auto) 2.4 Baso % (Auto) 0.9 Neut # (Auto) 2.8 Lymph # (Auto) 0.8 L [place] # (Auto) 0.5 Eos # (Auto) 0.1 Baso # (Auto) 0.0 WBC Differential . Differential Comment Auto diff final Sodium 142 Potassium 3.4 L Chloride 103 Carbon Dioxide 33.3 H Anion Gap 6 BUN 13 Creatinine 1.16 Estimated GFR 62 L Random Glucose 113 H Calcium 7.2 L* Calcium Adj for Albumin 8.6 Magnesium 1.7 Albumin 2.3 L Microbiology 01/23/18 10:11 Stool Stool Occult Blood (NIK) - Final Hemoccult positive - Procedures status post repeat EGD 01/21/18, showed prepyloric ulcer, friable mucosa but no active bleeding. Assessment and Plan - Assessment (1) GI bleed Code(s): K92.2 - Gastrointestinal hemorrhage, unspecified Status: Acute - Plan This is 73 y/o male with history of a-fib, on anticoagulation, hypertension, prostate cancer, dyslipidemia, who presented to ER with generalized weakness. He was recently admitted to this hospital for the same reason. He underwent EGD which showed an ulcer at Pylorus. He was switched from Coumadin to Eliquis and the he was discharged home. Upon ED evaluation for weakness, hemoglobin was 5.8. CT abdomen done, showed cirrhotic liver with mild ascites and evidence of portal hypertension. There is also a 10 mm low-density lesion in the right lobe of the liver. Gastroenterology consulted, status post repeat EGD 01/21/18 , showed prepyloric ulcer, friable mucosa but no active bleeding. //Acute on chronic anemia secondary to recurrent GI bleeding, with iron deficiency anemia- continue Protonix IV, status post transfusion 4 units of packed red blood cells, Mild hyper hyperammonemia at 40, likely just from GI bleed. No lactulose for now. GI consulted, status post repeat EGD Also patient has melanotic stools, might need a colonoscopy. Check occult blood, complaining of hematuria -Hemoglobin stable today, recheck hemoglobin every 12 hours, check urinalysis for possible hematuria. Needs To be on iron supplement on discharge. = Hemoglobin relatively stable. Start on iron. //Atrial [id number] on hold because of low blood pressure, resume when stable. Eliquis on hold, previously on Coumadin. = 01/24. Restart Coreg now that blood pressure has normalized. Discussed risks and benefits of anticoagulation. Patient has never had a stroke or venous thromboembolic disease, however has had life-threatening bleeding. In addition patient has liver cirrhosis which put him at increased risk for bleeding. Chads vascular is 1, possibly 2. Patient decides to hold anticoagulation at this time, and can reevaluate with primary care as outpatient.. //Liver cirrhosis, portal hypertension, mild ascites-we will need to restart beta-blockers when stable, restart Lasix with increasing lower extremity edema. Check BMP tomorrow. = 12. Patient still with some edema. Will DC IV fluids which have been running during hospitalization. Will start on low-dose spironolactone //Coagulopathy, INR 2.5-status post vitamin K, INR now 1.9 = Resolved. //Mild thrombocytopenia-platelets 149, stable. //Acute renal failure-1.42 creatinine admission, now back to normal, resolved with normal saline. Restart Lasix, check BMP tomorrow = Creatinine stable at 1.16. //Hypokalemia-still low, replace orally. Check BMP tomorrow. -Stable. Start on spironolactone. Will need to follow-up with primary care as outpatient. Patient conveys understanding. //Hypocalcemia-resolved after calcium gluconate //Hypomagnesemia-replace with mag sulfate. Recheck tomorrow. = 1.7. Stable. //Hypertension-hold antihypertensives, restart when stable //DVT prophylaxis: SCDs, pharmacological prophylaxis contraindicated. Discussed Condition With: Patient, gastroenterology. Discharge Planning: Discharge home. Follow-up with gastroenterology, primary care.
--- NOTE | 2018-01-24 14:27 | P.DS ---
Date of admission: 01/21/18 13:59 Primary care physician: Jose Manuel Bailey Brief History from admission: patient is a 73 y/o male with history of a-fib, on anticoagulation, hypertension , prostate cancer, dyslipidemia, who presented to ER with generalized weakness. he was recently admitted to this hospital for the same reason. he underwent EGD which showed an ulcer at [place]. he was switched from Coumadin to Eliquis and the he was discharged home. he says that he felt fine for the fisrt few days but later on he started to feel weak again. he denies any abdominal pain, nausea , vomiting. he denies any chest pain, orthopnea. he says that few days ago he had some blood per rectum. he had mild dizziness the other day. DS: Diagnosis - Discharge Diagnosis (1) GI bleed Status: Acute DS: Summary Hospital Course: This is 73 y/o male with history of a-fib, on anticoagulation, hypertension, prostate cancer, dyslipidemia, who presented to ER with generalized weakness. He was recently admitted to this hospital for the same reason. He underwent EGD which showed an ulcer at [place]. He was switched from Coumadin to Eliquis and the he was discharged home. Upon ED evaluation for weakness, hemoglobin was 5.8. CT abdomen done, showed cirrhotic liver with mild ascites and evidence of portal hypertension. There is also a 10 mm low-density lesion in the right lobe of the liver. Gastroenterology consulted, status post repeat EGD 01/21/18 , showed prepyloric ulcer, friable mucosa but no active bleeding. //Acute on chronic anemia secondary to recurrent GI bleeding, with iron deficiency anemia- continue Protonix IV, status post transfusion 4 units of packed red blood cells, Mild hyper hyperammonemia at 40, likely just from GI bleed. No lactulose for now. GI consulted, status post repeat EGD Also patient has melanotic stools, might need a colonoscopy. Check occult blood, complaining of hematuria -Hemoglobin stable today, recheck hemoglobin every 12 hours, check urinalysis for possible hematuria. Needs To be on iron supplement on discharge. = Hemoglobin relatively stable. Start on iron. //Atrial [id number] on hold because of low blood pressure, resume when stable. Eliquis on hold, previously on Coumadin. = 01/24. Restart Coreg now that blood pressure has normalized. Discussed risks and benefits of anticoagulation. Patient has never had a stroke or venous thromboembolic disease, however has had life-threatening bleeding. In addition patient has liver cirrhosis which put him at increased risk for bleeding. [facility] vascular is 1, possibly 2. Patient decides to hold anticoagulation at this time, and can reevaluate with primary care as outpatient.. //Liver cirrhosis, portal hypertension, mild ascites-we will need to restart beta-blockers when stable, restart Lasix with increasing lower extremity edema. Check BMP tomorrow. = 01/18. Patient still with some edema. Will DC IV fluids which have been running during hospitalization. Will start on low-dose spironolactone //Coagulopathy, INR 2.5-status post vitamin K, INR now 1.9 = Resolved. //Mild thrombocytopenia-platelets 149, stable. //Acute renal failure-1.42 creatinine admission, now back to normal, resolved with normal saline. Restart Lasix, check BMP tomorrow = Creatinine stable at 1.16. //Hypokalemia-still low, replace orally. Check BMP tomorrow. -Stable. Start on spironolactone. Will need to follow-up with primary care as outpatient. Patient conveys understanding. //Hypocalcemia-resolved after calcium gluconate //Hypomagnesemia-replace with mag sulfate. Recheck tomorrow. = 1.7. Stable. //Hypertension-hold antihypertensives, restart when stable //DVT prophylaxis: SCDs, pharmacological prophylaxis contraindicated. Discussed Condition With: Patient, gastroenterology. Discharge Planning: Discharge home. Follow-up with gastroenterology, primary care. - Time Spent with Patient Total time spent providing and/or coordinating discharge services: Greater than 30 minutes - Quality: VTE Deep Vein Thrombosis/Pulmonary Embolism Present on Admission: No Exam Vital signs: Vital Signs 01/23/18 14:39 01/23/18 15:54 01/23/18 16:00 Temperature 97.9 F Pulse Rate 65 65 67 Respiratory Rate 18 Blood Pressure 128/64 Pulse Oximetry 99 01/23/18 17:00 01/23/18 18:00 01/23/18 19:00 Temperature Pulse Rate 67 67 71 Respiratory Rate Blood Pressure Pulse Oximetry 01/23/18 20:00 01/23/18 21:00 01/23/18 22:00 Temperature 98.2 F Pulse Rate 68 65 66 Respiratory Rate 20 Blood Pressure 148/76 H Pulse Oximetry 99 01/23/18 23:00 01/24/18 00:00 01/24/18 01:00 Temperature 98.3 F Pulse Rate 67 68 69 Respiratory Rate 18 Blood Pressure 154/78 H Pulse Oximetry 98 01/24/18 02:00 01/24/18 03:00 01/24/18 04:00 Temperature 98 F Pulse Rate 71 70 73 Respiratory Rate 20 Blood Pressure 131/57 L Pulse Oximetry 97 01/24/18 05:00 01/24/18 06:00 01/24/18 07:00 Temperature Pulse Rate 71 72 66 Respiratory Rate Blood Pressure Pulse Oximetry 97 01/24/18 08:00 01/24/18 09:00 01/24/18 10:00 Temperature 98.1 F Pulse Rate 76 70 68 Respiratory Rate 18 Blood Pressure 127/60 Pulse Oximetry 97 01/24/18 11:00 01/24/18 12:00 01/24/18 13:00 Temperature 98.3 F Pulse Rate 66 66 70 Respiratory Rate 18 Blood Pressure 135/71 Pulse Oximetry 99 01/24/18 14:00 Temperature Pulse Rate 68 Respiratory Rate Blood Pressure Pulse Oximetry 97 Intake & Output 01/23/18 01/24/18 01/24/18 18:59 06:59 18:59 Intake Total 2775 / 2775 1485 / 1485 Output Total 1550 / 1550 850 / 850 Balance 1225 / 1225 635 / 635 Weight 129 kg Intake: IV 1555 / 1555 1005 / 1005 Protonix Inj 80 MG In NS Inj 200 / 200 100 ML @ 10 mls/hr IV.CONT CONT [facility] Rx#:[id number] KCl Inj 10 MEQ In 1/2 Normal 1005 / 1005 1005 / 1005 Saline Inj 1,000 ML @ 50 mls/hr IV.CONT .Q20H6M [facility] Rx#: [id number] Magnesium Sulfate 1 gm/D5W 100 100 / 100 ml Premix 100 ML @ 100 mls/hr IV.SIG ONCE ONE Rx#:[id number] NS Inj 250 ML @ 15 mls/hr IV. 250 / 250 SIG ONCE [facility] Rx#:[id number] Oral 1220 / 1220 480 / 480 Output: Urine 1550 / 1550 850 / 850 Other: Date of Last Bowel Movement 01/23/18 # Bowel Movements 2 1 Results Procedures completed during hospitalization: status post repeat EGD 01/21/18, showed prepyloric ulcer, friable mucosa but no active bleeding. Pending studies at discharge: Pending at discharge 01/22/18 07:52 Surgical [PTH] Routine Labs on day of discharge: Labs from last 24 hours 01/24/18 01/24/18 01/23/18 05:00 05:00 18:48 WBC 4.2 RBC 3.01 L Hgb 8.4 L 8.9 L Hct 25.7 L 26.7 L MCV 85.3 MCH 28.0 MCHC 32.8 RDW 19.2 H Plt Count 149 L MPV 8.1 Neut % (Auto) 65.9 Lymph % (Auto) 19.9 [place] % (Auto) 10.9 H Eos % (Auto) 2.4 Baso % (Auto) 0.9 Neut # (Auto) 2.8 Lymph # (Auto) 0.8 L [place] # (Auto) 0.5 Eos # (Auto) 0.1 Baso # (Auto) 0.0 WBC Differential . Differential Comment Auto diff final Sodium 142 Potassium 3.4 L Chloride 103 Carbon Dioxide 33.3 H Anion Gap 6 BUN 13 Creatinine 1.16 Estimated GFR 62 L Random Glucose 113 H Calcium 7.2 L* Calcium Adj for Albumin 8.6 Magnesium 1.7 Albumin 2.3 L - Impressions ITS Impressions Chest X-Ray 01/21/18 12:54 CONCLUSION: Negative for acute process Abdomen/Pelvis CT 01/21/18 18:43 CONCLUSION: 1. Cirrhotic liver with mild ascites and evidence for portal hypertension. 2. 10 mm low-density lesion in the right lobe of the liver is too small to fully characterize. 3. Mild sigmoid diverticulosis without definitive evidence for diverticulitis. 4. Small fat-containing periumbilical hernia. 5. Small bilateral hydroceles. 6. Degenerative spondylosis of the lower lumbar spine with chronic mild L2 superior endplate compression fracture. Discharge Plan - Discharge Disposition Patient Disposition: 01 Discharge Home - Discharge Condition Condition: Stable - Discharge Order Discharge Orders: Discharge Order (Routine); Ordered 01/24/18 Ordered By: Ulysses Campbell ED Use Only Admit Order (Routine); Ordered 01/21/18 Ordered By: Sim Tomas - Discharge Details Anticipated Discharge Date: 01/24/18 - Physicians Team Primary Care Provider: Jose Manuel Bailey Attending Provider: Ulysses Campbell Other Providers: Damir Pompa MD
[2018-01-24] MEDS ORDERED: Iron Sucrose Inj 100 MG/5 ML Vial IV.PUSH SCH (15:00)
[2018-01-24] MEDS ORDERED: Spironolactone 25 MG Tablet PO ONE (15:00)
--- NOTE | 2018-01-24 18:00 | P.PNGI ---
Subjective Interval history: Patient sitting up in bed Attending at bedside Patient denies any noted bleeding <Patty Davis - Last Filed: 01/24/18 17:58> Physical Exam Vital signs: Vital Signs 01/23/18 18:00 01/23/18 19:00 01/23/18 20:00 Temperature 98.2 F Pulse Rate 67 71 68 Respiratory Rate 20 Blood Pressure 148/76 H Pulse Oximetry 99 01/23/18 21:00 01/23/18 22:00 01/23/18 23:00 Temperature Pulse Rate 65 66 67 Respiratory Rate Blood Pressure Pulse Oximetry 01/24/18 00:00 01/24/18 01:00 01/24/18 02:00 Temperature 98.3 F Pulse Rate 68 69 71 Respiratory Rate 18 Blood Pressure 154/78 H Pulse Oximetry 98 01/24/18 03:00 01/24/18 04:00 01/24/18 05:00 Temperature 98 F Pulse Rate 70 73 71 Respiratory Rate 20 Blood Pressure 131/57 L Pulse Oximetry 97 01/24/18 06:00 01/24/18 07:00 01/24/18 08:00 Temperature 98.1 F Pulse Rate 72 66 76 Respiratory Rate 18 Blood Pressure 127/60 Pulse Oximetry 97 97 01/24/18 09:00 01/24/18 10:00 01/24/18 11:00 Temperature Pulse Rate 70 68 66 Respiratory Rate Blood Pressure Pulse Oximetry 01/24/18 12:00 01/24/18 13:00 01/24/18 14:00 Temperature 98.3 F Pulse Rate 66 70 68 Respiratory Rate 18 Blood Pressure 135/71 Pulse Oximetry 99 97 01/24/18 15:00 01/24/18 16:00 01/24/18 17:00 Temperature 98.4 F Pulse Rate 65 66 67 Respiratory Rate 18 Blood Pressure 133/68 Pulse Oximetry 98 01/24/18 17:17 Temperature Pulse Rate Respiratory Rate Blood Pressure Pulse Oximetry 98 Intake & Output 01/23/18 01/24/18 01/24/18 18:59 06:59 18:59 Intake Total 2775 / 2775 1485 / 1485 Output Total 1550 / 1550 850 / 850 Balance 1225 / 1225 635 / 635 Weight 129 kg Intake: IV 1555 / 1555 1005 / 1005 Protonix Inj 80 MG In NS Inj 200 / 200 100 ML @ 10 mls/hr IV.CONT [facility] Rx#:[id number] KCl Inj 10 MEQ In 1/2 Normal 1005 / 1005 1005 / 1005 Saline Inj 1,000 ML @ 50 mls/hr IV.CONT .Q20H6M [facility] Rx#: [id number] Magnesium Sulfate 1 gm/D5W 100 100 / 100 ml Premix 100 ML @ 100 mls/hr IV.SIG ONCE ONE Rx#:[id number] NS Inj 250 ML @ 15 mls/hr IV. 250 / 250 SIG ONCE [facility] Rx#:[id number] Oral 1220 / 1220 480 / 480 Output: Urine 1550 / 1550 850 / 850 Other: Date of Last Bowel Movement 01/23/18 # Bowel Movements 2 1 - Constitutional no acute distress, chronically ill appearing - Routine HEENT Exam Head: Present: normocephalic - Routine Respiratory Exam Present: CTA bilaterally - Routine Cardiovascular Exam Present: RRR - Routine Abdominal Exam Present: soft, normoactive bowel sounds. Absent: tenderness - Routine Extremities Exam Present: edema - Routine Skin Exam Present: dry, warm - Routine Neurological Exam Present: alert - Routine Psychiatric Exam Present: normal affect, cooperative <Patty Davis - Last Filed: 01/24/18 17:58> Vital signs: Vital Signs 01/24/18 12:00 01/24/18 13:00 01/24/18 14:00 Temperature 98.3 F Pulse Rate 66 70 68 Respiratory Rate 18 Blood Pressure 135/71 Pulse Oximetry 99 97 01/24/18 15:00 01/24/18 16:00 01/24/18 17:00 Temperature 98.4 F Pulse Rate 65 66 67 Respiratory Rate 18 Blood Pressure 133/68 Pulse Oximetry 98 01/24/18 17:17 Temperature Pulse Rate Respiratory Rate Blood Pressure Pulse Oximetry 98 <Armand Zhang - Last Filed: 01/25/18 11:20> Results - Labs CBC & Chem 7: 01/24/18 05:00 01/24/18 05:00 Laboratory Results - last 24 hr 01/23/18 01/24/18 01/24/18 18:48 05:00 05:00 WBC 4.2 RBC 3.01 L Hgb 8.9 L 8.4 L Hct 26.7 L 25.7 L MCV 85.3 MCH 28.0 MCHC 32.8 RDW 19.2 H Plt Count 149 L MPV 8.1 Neut % (Auto) 65.9 Lymph % (Auto) 19.9 [place] % (Auto) 10.9 H Eos % (Auto) 2.4 Baso % (Auto) 0.9 Neut # (Auto) 2.8 Lymph # (Auto) 0.8 L [place] # (Auto) 0.5 Eos # (Auto) 0.1 Baso # (Auto) 0.0 WBC Differential . Differential Comment Auto diff final Sodium 142 Potassium 3.4 L Chloride 103 Carbon Dioxide 33.3 H Anion Gap 6 BUN 13 Creatinine 1.16 Estimated GFR 62 L Random Glucose 113 H Calcium 7.2 L* Calcium Adj for Albumin 8.6 Magnesium 1.7 Albumin 2.3 L Microbiology 01/23/18 10:11 Stool Stool Occult Blood (NIK) - Final Hemoccult positive - Procedures status post repeat EGD 01/21/18, showed prepyloric ulcer, friable mucosa but no active bleeding. <Patty Davis - Last Filed: 01/24/18 17:58> - Labs CBC & Chem 7: 01/24/18 05:00 01/24/18 05:00 <Armand Zhang - Last Filed: 01/25/18 11:20> Assessment and Plan (1) GI bleed Status: Acute Code(s): K92.2 - Gastrointestinal hemorrhage, unspecified - Plan This patient is a 73-year-old male with past medical history significant for atrial fibrillation, hypertension, hyperlipidemia, prostate cancer and pyloric ulcer. Patient presented to [facility] for evaluation of abnormal lab work. Patient states lab work was performed yesterday as an outpatient and he was told to come to the hospital for further evaluation. Upon consultation, patient reports that he has had dark stools with some red blood noted in it for the past 2-3 days. Of note, patient is currently on Eliquis for atrial fibrillation. Patient denies any noted bleeding at this time. He denies chest pain shortness of breath, nausea vomiting or abdominal pain. Patient states that he drinks beer and wine daily and has noticed a yellow tinge to his eyes as well as bilateral lower extremity edema. Patient denies any use of NSAIDs. Our service has been consulted to evaluate patient for anemia and GI bleeding. Last EGD done 01/05/2018 revealed large ulcer at the pylorus. GI bleed Anemia Patient reports 2-3 days of noticing dark stools with bright red blood. Patient denies any bleeding at this time. 01/21/2018 WBC 2.8 hemoglobin 5.8 hematocrit 17.8, INR 2.5. Patient transfused 2 units RBCs. Posttransfusion hemoglobin and hematocrit pending 01/05/2018 EGD revealed the following-- 1. Large ulcer was found at the pylorus 2. The esophagus appeared normal 3. Normal duodenal mucosa 4. Retroflexion was performed and was normal 01/23/2018 Patient sitting up at bedside. Reports one dark stool this a.m. Denies any abdominal pain nausea or vomiting. 01/22/2018 EGD revealed the following findings: Oral Pharynx:normal Esophagus:The esohpageal mucosa appeared normal. The Z line was seen at 45 cm and was regular in appearance. No Suggs's or erythema/erosions were seen. Stomach: Direct and retroflex views were obtained. The antrum appeared erythematous and edematous. A superficial prepyloric ulcer was seen in between the swollen folds. It was friable but no spontaneously bleeding. There was no active bleeding. Biopsies were obtained from the antrum and body for histology. Retroflex in the stomach revealed a normal cardia and no hiatal hernia. Duodenum: The bulb and second portion appeared normal. WBC 3.8 hemoglobin 7.9 hematocrit 23.2, 01/22/2018 ammonia level 40 01/24/2018 Patient sitting up in bed Denies any noted bleeding or dark stools. Denies any abdominal pain nausea or vomiting WBC 4.2 hemoglobin 8.4 hematocrit 25.7 stable albumin 2.3 Plan -Diet as tolerated -Monitor for bleeding -Continue PPI -Anticoagulation as per attending -Supportive care -Patient stable for discharge from GI standpoint -Patient instructed to follow-up with GI post discharge in 1 week This patient has been seen by myself and Dr. Zhang and this note is written on his behalf - Attending Attestation Dr. Zhang <Patty Dvais - Last Filed: 01/24/18 17:58> (1) GI bleed Status: Acute Code(s): K92.2 - Gastrointestinal hemorrhage, unspecified - Attending Attestation The patient has been seen and examined. I agree with above. <Armand Zhang - Last Filed: 01/25/18 11:20>
[2018-01-25] MEDS ORDERED: Spironolactone 25 MG Tablet PO SCH (09:00)
== END 2018-01-24 17:25 | disposition home or self-care (01) ==
LOC: NEPE 11:15 → NEDA 13:59 → HCIS 23:00
PROVIDERS: ADMIT Internal Medicine; ATTEND Internal Medicine